=== PATIENT | male | born 1935 | race Caucasian/White ===

== ENCOUNTER 2019-03-30 23:09 | Emergency (ER) | payer MEDICARE, BC ==
[2019-03-30] MEDS ORDERED: Sodium Chloride 0.9% 10 ML Syringe FLUSH PRN (23:49)
[2019-03-30] MEDS ORDERED: Albuterol/Ipratropium 3.0-0.5 MG/3 ML Neb Soln NEB ONE (23:51)
[2019-03-30] MEDS ORDERED: methylPREDNISolone Sodium Succinate 125 MG/2 ML SDV IVPUSH ONE (23:51)
--- NOTE | 2019-03-30 23:54 | EDM.PDOC ---
ED HPI GENERAL MEDICAL PROBLEM - General Chief Complaint: Respiratory Problem Stated Complaint: SOB Time Seen by Provider: 03/30/19 23:46 Source of Information: Reports: Patient, Family, RN Notes Reviewed History Limitations: Reports: No Limitations - History of Present Illness INITIAL COMMENTS - FREE TEXT/NARRATIVE: 83-year-old gentleman presents emergency department today complaint of shortness of breath. He has a known history of COPD was evaluated by his primary care about a week ago did complete a course of amoxicillin. He states he just has not been able to turn the corner has gotten more short of breath over the week and has been wheezing heavily is using his regular medications at home. No chest pain no nausea vomiting or diaphoresis no sputum production - Related Data Allergies Allergy/AdvReac Type Severity Reaction Status Date / Time opium (anthroposophic) Allergy Unknown Hives Verified 03/30/19 23:28 [Opium (Anthroposophic)] tramadol Allergy Unknown Rash Verified 03/30/19 23:28 Home Meds: Home Meds Albuterol Sulfate [Albuterol Sulfate HFA] 2 puff INH Q6H PRN 06/04/13 [History] Esomeprazole [NexIUM] 40 mg PO BEDTIME PRN 06/04/13 [History] Furosemide 40 mg PO DAILY 06/04/13 [History] Glimepiride 2 mg PO DAILY 06/04/13 [History] Lisinopril 40 mg PO DAILY 06/04/13 [History] amLODIPine Besylate [Amlodipine Besylate] 5 mg PO DAILY 06/04/13 [History] carvediloL [Carvedilol] 25 mg PO BID 06/04/13 [History] metFORMIN [Glucophage] 1,000 mg PO BID 06/04/13 [History] Albuterol [Proventil Neb Soln] 2.5 mg .XX Q6H PRN 03/30/19 [History] Amoxicillin/Clavulanate K [Augmentin 500-125 MG] 1 tab PO Q8H 03/30/19 [History] Donepezil HCl 1 tab PO BEDTIME 03/30/19 [History] guaiFENesin [Mucinex] 600 mg PO BID 03/30/19 [History] predniSONE 40 mg PO DAILY #5 tab 03/31/19 [Rx] Past Medical History HEENT History: Reports: Hard of Hearing Cardiovascular History: Reports: Heart Failure, High Cholesterol, Hypertension Respiratory History: Reports: Asthma, COPD Gastrointestinal History: Reports: Bowel Obstruction, Diverticulosis, GERD Genitourinary History: Reports: BPH, Urinary Incontinence Musculoskeletal History: Reports: Arthritis Endocrine/Metabolic History: Reports: Diabetes, Type II, Obesity/BMI 30+ Hematologic History: Reports: Blood Transfusion(s) Oncologic (Cancer) History: Reports: Bladder - Past Surgical History HEENT Surgical History: Reports: Tonsillectomy GI Surgical History: Reports: Colon, Colonoscopy Male Surgical History: Reports: Cystectomy, Prostatectomy, Other (See Below) Other Male Surgeries/Procedures: partial Musculoskeletal Surgical History: Reports: Knee Replacement, Shoulder Surgery Social & Family History - Tobacco Use Smoking Status *Q: Never Smoker - Caffeine Use Caffeine Use: Reports: Coffee - Alcohol Use Days Per Week of Alcohol Use: 4 Number of Drinks Per Day: 1 Total Drinks Per Week: 4 - Recreational Drug Use Recreational Drug Use: No ED ROS GENERAL - Review of Systems Review Of Systems: See Below Constitutional: Denies: Fever, Chills HEENT: Reports: No Symptoms Respiratory: Reports: Shortness of Breath, Wheezing. Denies: Cough, Sputum Cardiovascular: Reports: Dyspnea on Exertion. Denies: Chest Pain GI/Abdominal: Reports: No Symptoms : Reports: No Symptoms Musculoskeletal: Reports: No Symptoms ED EXAM, GENERAL - Physical Exam Exam: See Below Exam Limited By: No Limitations General Appearance: Alert, WD/WN, No Apparent Distress Head: Atraumatic, Normocephalic Neck: Normal Inspection, Supple, Non-Tender, Full Range of Motion Respiratory/Chest: No Respiratory Distress, Decreased Breath Sounds, Wheezing Cardiovascular: Regular Rate, Rhythm, No Murmur GI/Abdominal: Soft, Non-Tender Course - Vital Signs Last Recorded V/S: Last Vital Signs Temp 97.9 F 03/30/19 23:37 Pulse 69 03/31/19 00:57 Resp 12 03/31/19 00:57 BP 149/88 H 03/31/19 00:57 Pulse Ox 95 03/31/19 00:57 - Orders/Labs/Meds Orders: Active Orders 24 hr Category Date Time Status EKG Documentation Completion [RC] ASDIRECTED Care 03/30/19 23:50 Active Peripheral IV Care [RC] . DIRECTED Care 03/30/19 23:50 Active RT Aerosol Therapy [RC] ASDIRECTED Care 03/30/19 23:51 Active Sodium Chloride 0.9% [Saline Flush] Med 03/30/19 23:49 Active 10 ml FLUSH ASDIRECTED PRN Peripheral IV Insertion Adult [OM.PC] Urgent Oth 03/30/19 23:49 Ordered EKG 12 Lead [EK] Urgent Ther 03/30/19 23:49 Ordered Medication Orders Sodium Chloride (Saline Flush) 10 ml FLUSH ASDIRECTED PRN PRN Reason: Keep Vein Open Last Admin: 03/31/19 00:10 Dose: 10 ml Labs: Laboratory Tests 03/30/19 03/30/19 03/30/19 Range/Units 00:10 00:10 00:10 WBC 7.3 (4.5-11.0) K/uL RBC 4.80 (4.30-5.90) M/uL Hgb 14.9 (12.0-15.0) g/dL Hct 44.3 (40.0-54.0) % MCV 92 (80-98) fL MCH 31 (27-31) pg MCHC 34 (32-36) % Plt Count 258 (150-400) K/uL Neut % (Auto) 53 (36-66) % Lymph % (Auto) 27 (24-44) % [place] % (Auto) 11 H (2-6) % Eos % (Auto) 9 H (2-4) % Baso % (Auto) 1 (0-1) % Sodium 139 L (140-148) mmol/L Potassium 4.0 (3.6-5.2) mmol/L Chloride 102 (100-108) mmol/L Carbon Dioxide 29 (21-32) mmol/L Anion Gap 12.0 (5.0-14.0) mmol/L BUN 20 H D (7-18) mg/dL Creatinine 1.1 (0.8-1.3) mg/dL Est Cr Clr Drug Dosing 43.35 mL/min Estimated GFR (MDRD) > 60 (>60) Glucose 120 H (74-106) mg/dL Calcium 9.7 (8.5-10.1) mg/dL Total Bilirubin 0.4 (0.2-1.0) mg/dL AST 17 (15-37) U/L ALT 30 (12-78) U/L Alkaline Phosphatase 50 (46-116) U/L Troponin I < 0.017 (0.000-0.056) ng/mL NT-Pro-B Natriuret Pep 98 (5-450) pg/mL Total Protein 7.3 (6.4-8.2) g/dL Albumin 3.7 (3.4-5.0) g/dL Globulin 3.6 H (2.3-3.5) g/dL Albumin/Globulin Ratio 1.0 L (1.2-2.2) Meds: Medications Generic Name Dose Route Start Last Admin Trade Name Freq PRN Reason Stop Dose Admin Sodium Chloride 10 ml 03/30/19 23:49 03/31/19 00:10 Saline Flush FLUSH 10 ml ASDIRECTED PRN Administration Keep Vein Open Discontinued Medications Generic Name Dose Route Start Last Admin Trade Name Freq PRN Reason Stop Dose Admin Albuterol/Ipratropium 3 ml 03/30/19 23:51 03/31/19 00:09 Duoneb 3.0-0.5 Mg/3 Ml NEB 03/30/19 23:52 3 ml ONETIME ONE Administration Methylprednisolone Sodium Succinate 125 mg 03/30/19 23:51 03/31/19 00:09 Solu-Medrol IVPUSH 03/30/19 23:52 125 mg ONETIME ONE Administration Departure - Departure Time of Disposition: 01:05 Disposition: Home, Self-Care 01 Condition: Fair Clinical Impression: COPD exacerbation - Discharge Information Prescriptions: predniSONE 40 mg PO DAILY #5 tab Instructions: Chronic Obstructive Pulmonary Disease Exacerbation, [id number] Referrals: Bo Sutherland MD [Primary Care Provider] - Forms: ED Department Discharge Additional Instructions: Take full course of prednisone start March 31, please follow-up with your primary care provider in the next 3 to 5 days for reevaluation for your breathing as well as evaluation of the chest x-ray. Call return to the emergency department worsening of symptoms Sepsis Event Note - Evaluation Sepsis Screening Result: No Definite Risk - Focused Exam Vital Signs: Vital Signs Temp Pulse Resp BP Pulse Ox 03/31/19 00:57 69 12 149/88 H 95 03/30/19 23:37 97.9 F 66 14 129/84 94 L Date Exam was Performed: 03/31/19 Time Exam was Performed: 01:03 - My Orders Last 24 Hours: My Active Orders 03/30/19 23:49 Sodium Chloride 0.9% [Saline Flush] 10 ml FLUSH ASDIRECTED PRN Peripheral IV Insertion Adult [OM.PC] Urgent EKG 12 Lead [EK] Urgent 03/30/19 23:50 EKG Documentation Completion [RC] ASDIRECTED Peripheral IV Care [RC] . DIRECTED 03/30/19 23:51 RT Aerosol Therapy [RC] ASDIRECTED - Assessment/Plan Last 24 Hours: My Active Orders 03/30/19 23:49 Sodium Chloride 0.9% [Saline Flush] 10 ml FLUSH ASDIRECTED PRN Peripheral IV Insertion Adult [OM.PC] Urgent EKG 12 Lead [EK] Urgent 03/30/19 23:50 EKG Documentation Completion [RC] ASDIRECTED Peripheral IV Care [RC] . DIRECTED 03/30/19 23:51 RT Aerosol Therapy [RC] ASDIRECTED Plan: Assessment Acuity = acute Site and laterality = COPD exacerbation Etiology = unknown Manifestations = wheezing Location of injury = Home Lab values = CBC, CMP, troponin and BNP within normal limits chest x-ray shows no acute process however there is a 2.2 cm silhouette near the cardiac border which needs to be followed up on a CT scan outpatient copy of this result was provided to the patient Plan I did discuss hospitalization with him he declined he got some improvement from the DuoNeb provided in the ED was given 125 mg Solu-Medrol IV. Plan for prednisone 40 mg once a day for the next 5 days having follow-up with primary care in the next 3 to 5 days for reevaluation of his breathing as well as to review the chest x-ray results This note was dictated using [employer] voice recognition software please call with any questions on syntax or grammar.
--- NOTE | 2019-03-31 00:44 | CRLCR ---
INDICATION: Shortness of breath TECHNIQUE: Chest radiograph 2 views COMPARISON: 07/15/2015 FINDINGS: Mediastinum: The mediastinum is normal in appearance. There is a small convex density along the left cardiac border measuring 2.2 cm. Lung: Both lungs are unremarkable in appearance. No sign of pleural effusion seen. No pneumothorax is identified. Bone and Soft tissue: Unremarkable for age. IMPRESSION: 1. There is a small convex density along the left cardiac border measuring 2.2 cm. This region was obscured on prior exam but may have been present. Evaluation with outpatient chest CT may be helpful for further characterization. Dictated by Alli Granger MD @ 03/31/2019 12:43:51 AM Dictated by: Alli Granger MD @ 03/31/2019 00:44:03 (Electronically Signed)
[2019-03-31 00:57] VITALS: BP 149/88; PULSE 69
== END 2019-03-31 01:15 | disposition home or self-care (01) ==
LOC: JP.ED 23:09
DX: J44.1 Chronic obstructive pulmonary disease with (acute) exacerbation (principal); I11.0 Hypertensive heart disease with heart failure; I50.9 Heart failure, unspecified; E11.9 Type 2 diabetes mellitus without complications; E78.00 Pure hypercholesterolemia, unspecified; K21.9 Gastro-esophageal reflux disease without esophagitis; M19.90 Unspecified osteoarthritis, unspecified site; E66.9 Obesity, unspecified; Z68.31 Body mass index [BMI] 31.0-31.9, adult; Z88.5 Allergy status to narcotic agent; Z88.8 Allergy status to other drugs, medicaments and biological substances; Z79.899 Other long term (current) drug therapy; Z79.84 Long term (current) use of oral hypoglycemic drugs
CPT/HCPCS: 36415; 71046; 80053; 83880; 84484; 85025; 93005; 93010; 94640; 96374; 99283; 99285; J2930; J7620-GY

== ENCOUNTER 2019-11-24 17:54 | Observation (INO) | payer MEDICARE, BC, OTHER ==
--- NOTE | 2019-11-24 19:22 | EDM.PDOC ---
ED HPI GENERAL MEDICAL PROBLEM - General Chief Complaint: General Stated Complaint: SHORTNESS OF BREATH, LOSS OF BLADDER CONTROL Time Seen by Provider: 11/24/19 19:02 - History of Present Illness INITIAL COMMENTS - FREE TEXT/NARRATIVE: Laureano is a 84-year-old male presenting to the ED for evaluation of increasing shortness of breath and cough. His reports that she found him laying on the floor next to the bed at 6 AM this morning. She thought he was " and started to shake him" but he was alive but unable to get up despite her help. She reports that he had loss of bladder control. She states that she is a light sleeper and did not hear him fall, but is not sure how he ended up on the floor. In addition she is not sure that he had his head. Patient denies any headache, vision changes, nausea or vomiting. She does state that he has been more dyspneic today and has had a cough. The patient denies any has had fever or chills, however, the states that she had to give him an uruguayan at home to warm him up. In addition, she notes that his legs appear a bit more swollen than usual. Onset: Today Duration: Constant Improves with: Reports: None Associated Symptoms: Reports: Cough, Fever/Chills, Other (Swelling of the legs) - Related Data Allergies Allergy/AdvReac Type Severity Reaction Status Date / Time opium (anthroposophic) Allergy Unknown Hives Verified 03/30/19 23:28 [Opium (Anthroposophic)] tramadol Allergy Unknown Rash Verified 03/30/19 23:28 Home Meds: Home Meds Albuterol Sulfate [Albuterol Sulfate HFA] 2 puff INH Q6H PRN 06/04/13 [History] Furosemide 40 mg PO DAILY 06/04/13 [History] Glimepiride 2 mg PO DAILY 06/04/13 [History] Lisinopril 40 mg PO DAILY 06/04/13 [History] amLODIPine Besylate [Amlodipine Besylate] 5 mg PO DAILY 06/04/13 [History] carvediloL [Carvedilol] 25 mg PO BID 06/04/13 [History] metFORMIN [Glucophage] 1,000 mg PO BID 06/04/13 [History] Donepezil HCl 1 tab PO BEDTIME 03/30/19 [History] Albuterol [Proventil Neb Soln] 2.5 mg .XX Q6H 11/24/19 [History] Aspirin [Halfprin] 81 mg PO DAILY 11/24/19 [History] Simvastatin [Zocor] 20 mg PO BEDTIME 11/24/19 [History] Past Medical History HEENT History: Reports: Hard of Hearing, Impaired Vision Cardiovascular History: Reports: Heart Failure, High Cholesterol, Hypertension Respiratory History: Reports: Asthma, COPD Gastrointestinal History: Reports: Bowel Obstruction, Diverticulosis, GERD Genitourinary History: Reports: BPH, Urinary Incontinence Musculoskeletal History: Reports: Arthritis Endocrine/Metabolic History: Reports: Diabetes, Type II, Obesity/BMI 30+ Hematologic History: Reports: Blood Transfusion(s) Oncologic (Cancer) History: Reports: Bladder, Other (See Below) Other Oncologic History: skin cancer - Past Surgical History HEENT Surgical History: Reports: Tonsillectomy GI Surgical History: Reports: Colon, Colonoscopy Male Surgical History: Reports: Cystectomy, Prostatectomy, Other (See Below) Other Male Surgeries/Procedures: partial Musculoskeletal Surgical History: Reports: Knee Replacement, Shoulder Surgery Social & Family History - Tobacco Use Smoking Status *Q: Former Smoker Used Tobacco, but Quit: Yes Month/Year Tobacco Last Used: 40 years - Caffeine Use Caffeine Use: Reports: Coffee - Alcohol Use Days Per Week of Alcohol Use: 5 Number of Drinks Per Day: 2 Total Drinks Per Week: 10 - Recreational Drug Use Recreational Drug Use: No ED ROS GENERAL - Review of Systems Review Of Systems: See Below Constitutional: Reports: Chills, Weakness HEENT: Reports: No Symptoms Respiratory: Reports: Shortness of Breath, Cough Cardiovascular: Reports: Edema Endocrine: Reports: No Symptoms GI/Abdominal: Reports: No Symptoms : Reports: Incontinence Musculoskeletal: Reports: No Symptoms Skin: Reports: No Symptoms Neurological: Reports: No Symptoms Psychiatric: Reports: No Symptoms Hematologic/Lymphatic: Reports: No Symptoms Immunologic: Reports: No Symptoms ED EXAM, GENERAL - Physical Exam Exam: See Below Exam Limited By: No Limitations General Appearance: Alert, WD/WN, No Apparent Distress Eye Exam: Bilateral Eye: EOMI, PERRL Nose: Normal Inspection, Normal Mucosa Throat/Mouth: Normal Inspection, Normal Lips, Normal Teeth, Normal Gums, Normal Oropharynx, Normal Voice, No Airway Compromise Head: Atraumatic, Normocephalic Neck: Normal Inspection, Supple, Non-Tender, Full Range of Motion Respiratory/Chest: No Respiratory Distress, No Accessory Muscle Use, Rhonchi (Rhonchi noted in the left base) Cardiovascular: Normal Peripheral Pulses GI/Abdominal: Normal Bowel Sounds, Soft, Non-Tender, No Organomegaly, No Distention, No Abnormal Bruit Back Exam: Normal Inspection, Full Range of Motion Extremities: Normal Range of Motion, Non-Tender, Pedal Edema (1+ bilateral pedal edema to mid calf) Neurological: Alert, Oriented, Normal Gait, No Motor/Sensory Deficits Psychiatric: Normal Affect, Normal Mood Skin Exam: Warm, Dry Lymphatic: No Adenopathy EKG INTERPRETATION EKG Date: 11/24/19 Time: 19:23 Rhythm: NSR Rate (Beats/Min): 57 Faber: Normal P-Wave: Present QRS: Normal ST-T: Other (Nonspecific ST-T changes) QT: Normal EKG Interpretation Comments: Normal sinus rhythm with a rate of 57 bpm. Short AK interval. Multiple premature supraventricular complexes nonspecific ST-T changes. Course - Vital Signs Last Recorded V/S: Last Vital Signs Temp 36.9 C 11/24/19 18:53 Pulse 68 11/24/19 22:02 Resp 18 11/24/19 18:53 BP 130/80 11/24/19 22:02 Pulse Ox 92 L 11/24/19 22:02 - Orders/Labs/Meds Orders: Active Orders 24 hr Category Date Time Status EKG Documentation Completion [RC] ASDIRECTED Care 11/24/19 19:16 Active Chest 2V [CR] Stat Exams 11/24/19 19:15 Taken Head wo Cont [CT] Stat Exams 11/24/19 22:08 Taken EKG 12 Lead [EK] Routine Ther 11/24/19 19:15 Ordered Labs: Laboratory Tests 11/24/19 11/24/19 11/24/19 Range/Units 19:26 19:26 19:58 WBC 5.5 (4.5-11.0) K/uL RBC 4.56 (4.30-5.90) M/uL Hgb 13.3 (12.0-15.0) g/dL Hct 41.7 (40.0-54.0) % MCV 91 (80-98) fL MCH 29 (27-31) pg MCHC 32 (32-36) % Plt Count 173 (150-400) K/uL Neut % (Auto) 63 (36-66) % Lymph % (Auto) 18 L (24-44) % [place] % (Auto) 17 H (2-6) % Eos % (Auto) 2 (2-4) % Baso % (Auto) 0 (0-1) % Sodium 140 (140-148) mmol/L Potassium 4.0 (3.6-5.2) mmol/L Chloride 101 (100-108) mmol/L Carbon Dioxide 30 (21-32) mmol/L Anion Gap 8.6 (5.0-14.0) mmol/L BUN 10 (7-18) mg/dL Creatinine 1.0 (0.8-1.3) mg/dL Est Cr Clr Drug Dosing 50.51 mL/min Estimated GFR (MDRD) > 60 (>60) Glucose 130 H (74-106) mg/dL Calcium 8.9 (8.5-10.1) mg/dL Total Bilirubin 0.3 (0.2-1.0) mg/dL AST 30 D (15-37) U/L ALT 30 (12-78) U/L Alkaline Phosphatase 41 L (46-116) U/L Troponin I < 0.017 (0.000-0.056) ng/mL Total Protein 7.2 (6.4-8.2) g/dL Albumin 3.8 (3.4-5.0) g/dL Globulin 3.4 (2.3-3.5) g/dL Albumin/Globulin Ratio 1.1 L (1.2-2.2) Urine Color Yellow (YELLOW) Urine Appearance Clear (CLEAR) Urine pH 8.0 (5.0-8.0) Ur Specific [place] 1.020 (1.008-1.030) Urine Protein 30 H (NEGATIVE) mg/dL Urine Glucose (UA) 100 H (NEGATIVE) mg/dL Urine Ketones Negative (NEGATIVE) mg/dL Urine Occult Blood Trace-intact H (NEGATIVE) Urine Nitrite Negative (NEGATIVE) Urine Bilirubin Negative (NEGATIVE) Urine Urobilinogen 2.0 H (0.2-1.0) EU/dL Ur Leukocyte Esterase Negative (NEGATIVE) Urine RBC 5-10 H (0-5) Urine WBC 0-5 (0-5) Ur Epithelial Cells Moderate Amorphous Sediment Few Urine Bacteria Moderate Urine Mucus Not seen - Radiology Interpretation Free Text/Narrative:: I reviewed the chest x-ray and compared it to his previous there are no significant changes noted. There is an ill-defined curvilinear density seen at the apex of the heart on the PA view that has been previously described. There is no evidence for an acute infiltrate. I reviewed the CT of the head without contrast demonstrating slight enlargement of the ventricles likely due to age-related volume loss. There is no evidence for acute infarct or hemorrhage. There is no mass-effect. - Re-Assessments/Exams Free Text/Narrative Re-Assessment/Exam: 11/24/19 23:00 nursing informs me that the patient takes the assist of 2 to ambulate which is not normal for him as he normally gets around at home by himself. I have not found any significant source for infection to account for his cough although this could be an early bronchitis or pneumonia. His blood work does not show anything significant for acute leukocytosis. Because the patient fell this morning we did do a CT of his brain without contrast that failed to demonstrate any acute findings but does show generalized enlargement of the ventricles age-related. Again I have nothing to point to why he is also had repeated urinary incontinence today as his urinalysis is unremarkable. My plan is to admit him on observation for generalized weakness where he can be evaluated again in the morning and assessed for mobility safety. This was discussed with WILEY Rodriguez who agrees with the hospitalization under observation. This was also discussed with the patient and his were both in agreement with this plan. Departure - Departure Time of Disposition: 22:55 Disposition: Refer to Observation Condition: Good Clinical Impression: Generalized weakness - Discharge Information *PRESCRIPTION DRUG MONITORING PROGRAM REVIEWED*: Not Applicable *COPY OF PRESCRIPTION DRUG MONITORING REPORT IN PATIENT DEREK: Not Applicable Referrals: Bo Sutherland MD [Primary Care Provider] - Forms: ED Department Discharge Sepsis Event Note (ED) - Evaluation Sepsis Screening Result: No Definite Risk - Focused Exam Vital Signs: Vital Signs Temp Pulse Resp BP Pulse Ox 11/24/19 22:02 68 130/80 92 L 11/24/19 21:31 69 157/93 H 92 L 11/24/19 21:02 58 L 153/90 H 95 11/24/19 19:01 73 152/84 H 95 11/24/19 18:53 36.9 C 78 18 172/101 H 94 L 11/24/19 18:26 36.9 C 78 18 172/101 H 94 L - Problem List & Annotations (1) Urinary incontinence SNOMED Code(s): 833884146 Code(s): R32 - UNSPECIFIED URINARY INCONTINENCE Status: Acute Priority: High Current Visit: Yes Qualifiers: Urinary Incontinence type: unspecified incontinence Qualified Code(s): R32 - Unspecified urinary incontinence (2) Hypertension SNOMED Code(s): 38013040 Code(s): I10 - ESSENTIAL (PRIMARY) HYPERTENSION Status: Acute Priority: High Current Visit: Yes Qualifiers: Hypertension type: unspecified Qualified Code(s): I10 - Essential (primary) hypertension (3) Acute dyspnea SNOMED Code(s): 789564250, 758201520 Code(s): R06.00 - DYSPNEA, UNSPECIFIED Status: Acute Priority: High Current Visit: Yes Onset Date: ~11/23/19 (4) Cough in adult SNOMED Code(s): 59217327 Code(s): R05 - COUGH Status: Acute Priority: Medium Current Visit: Yes Onset Date: ~11/23/19 - My Orders Last 24 Hours: My Active Orders 11/24/19 19:15 Chest 2V [CR] Stat EKG 12 Lead [EK] Routine 11/24/19 19:16 EKG Documentation Completion [RC] ASDIRECTED 11/24/19 22:08 Head wo Cont [CT] Stat - Assessment/Plan Last 24 Hours: My Active Orders 11/24/19 19:15 Chest 2V [CR] Stat EKG 12 Lead [EK] Routine 11/24/19 19:16 EKG Documentation Completion [RC] ASDIRECTED 11/24/19 22:08 Head wo Cont [CT] Stat Plan: Admit
--- NOTE | 2019-11-24 22:53 | CRLCT ---
INDICATION: Head injury from Fall earlier today now having urinary incontinence TECHNIQUE: CT Head without i.v. contrast. COMPARISON: 08/31/2014 FINDINGS: CSF space: Unremarkable for age. Brain: No evidence of mass, acute infarction or hemorrhage is seen. No mass-effect or midline shift is seen. Mild diffuse cortical atrophy is noted. Mild patchy regions of low attenuation are present in the periventricular white matter, likely due to chronic microvascular ischemic changes. The brain parenchyma is otherwise normal in appearance with preservation of the estrada-white matter junction. Calvarium: The visualized paranasal sinuses are well aerated. The mastoid air cells are clear. The visualized orbits are grossly unremarkable. The calvarium is unremarkable in appearance with no fractures identified. IMPRESSION: 1. No evidence of acute infarction, intracranial hemorrhage, or mass-effect seen. Please note that all CT scans at this facility use dose modulation, iterative reconstruction, and/or weight-based dosing when appropriate to reduce radiation dose to as low as reasonably achievable. Dictated by: Alli Granger MD @ 11/24/2019 22:52:44 (Electronically Signed)
[2019-11-24] MEDS ORDERED: Bisacodyl 5 MG Tab PO PRN (23:03)
[2019-11-24] MEDS ORDERED: Docusate Sodium 100 MG Cap PO PRN (23:03)
[2019-11-24] MEDS ORDERED: Acetaminophen 325 MG Tab PO PRN (23:03)
[2019-11-24] MEDS ORDERED: Morphine 2 MG/ML SYRINGE IVPUSH PRN (23:03)
[2019-11-24] MEDS ORDERED: Albuterol/Ipratropium 3.0-0.5 MG/3 ML Neb Soln NEB PRN (23:03)
[2019-11-24] MEDS ORDERED: Albuterol 0.083% 2.5 MG/3 ML Neb Soln NEB PRN (23:03)
[2019-11-24] MEDS ORDERED: oxyCODONE 5 MG Tab PO PRN (23:03)
[2019-11-24] MEDS ORDERED: Ondansetron 4 MG/2 ML SDV IV PRN (23:03)
[2019-11-24] MEDS ORDERED: Ondansetron 4 MG Tab.DIS PO PRN (23:03)
[2019-11-24] MEDS ORDERED: Carvedilol 25 MG Tab PO SCH (23:30)
--- NOTE | 2019-11-24 23:31 | PCM.HP.2 ---
H&P History of Present Illness - General Date of Service: 11/24/19 Admit Problem/Dx: Admission Diagnosis/Problem Admission Diagnosis/Problem Weakness Source of Information: Patient, Family, Provider History Limitations: Reports: No Limitations - History of Present Illness Initial Comments - Free Text/Narative: - History of Present Illness INITIAL COMMENTS - FREE TEXT/NARRATIVE: weakness, fall at home Laureano is a 84-year-old male presenting to the ED for evaluation of increasing shortness of breath and cough. His reports that she found him laying on the floor next to the bed at 6 AM this morning. She thought he was " and started to shake him" but he was alive but unable to get up despite her help. She reports that he had loss of bladder control. She states that she is a light sleeper and did not hear him fall, but is not sure how he ended up on the floor. In addition she is not sure that he had his head. Patient denies any headache, vision changes, nausea or vomiting. She does state that he has been more dyspneic today and has had a cough. The patient denies any has had fever or chills, however, the states that she had to give him an kosovan at home to warm him up. In addition, she notes that his legs appear a bit more swollen than usual. Onset of Symptoms: Reports: Today Duration of Symptoms: Reports: Hour(s): Location: Reports: Generalized Improves with: Reports: None Worsens with: Reports: None Context: Reports: Other (fall at home) Associated Symptoms: Reports: Weakness - Related Data Allergies/Adverse Reactions: Allergies Allergy/AdvReac Type Severity Reaction Status Date / Time opium (anthroposophic) Allergy Unknown Hives Verified 03/30/19 23:28 [Opium (Anthroposophic)] tramadol Allergy Unknown Rash Verified 03/30/19 23:28 Home Medications: Home Meds Albuterol Sulfate [Albuterol Sulfate HFA] 2 puff INH Q6H PRN 06/04/13 [History] Furosemide 40 mg PO DAILY 06/04/13 [History] Glimepiride 2 mg PO DAILY 06/04/13 [History] Lisinopril 40 mg PO DAILY 06/04/13 [History] amLODIPine Besylate [Amlodipine Besylate] 5 mg PO DAILY 06/04/13 [History] carvediloL [Carvedilol] 25 mg PO BID 06/04/13 [History] metFORMIN [Glucophage] 1,000 mg PO BID 06/04/13 [History] Donepezil HCl 1 tab PO BEDTIME 03/30/19 [History] Albuterol [Proventil Neb Soln] 2.5 mg .XX Q6H 11/24/19 [History] Aspirin [Halfprin] 81 mg PO DAILY 11/24/19 [History] Simvastatin [Zocor] 20 mg PO BEDTIME 11/24/19 [History] Past Medical History HEENT History: Reports: Hard of Hearing, Impaired Vision Cardiovascular History: Reports: Heart Failure, High Cholesterol, Hypertension Respiratory History: Reports: Asthma, COPD Gastrointestinal History: Reports: Bowel Obstruction, Diverticulosis, GERD Genitourinary History: Reports: BPH, Urinary Incontinence Musculoskeletal History: Reports: Arthritis Endocrine/Metabolic History: Reports: Diabetes, Type II, Obesity/BMI 30+ Hematologic History: Reports: Blood Transfusion(s) Oncologic (Cancer) History: Reports: Bladder, Other (See Below) Other Oncologic History: skin cancer - Past Surgical History HEENT Surgical History: Reports: Tonsillectomy GI Surgical History: Reports: Colon, Colonoscopy Male Surgical History: Reports: Cystectomy, Prostatectomy, Other (See Below) Other Male Surgeries/Procedures: partial Musculoskeletal Surgical History: Reports: Knee Replacement, Shoulder Surgery Social & Family History - Tobacco Use Smoking Status *Q: Former Smoker Used Tobacco, but Quit: Yes Month/Year Tobacco Last Used: 40 years - Caffeine Use Caffeine Use: Reports: Coffee - Alcohol Use Days Per Week of Alcohol Use: 5 Number of Drinks Per Day: 2 Total Drinks Per Week: 10 - Recreational Drug Use Recreational Drug Use: No - Living Situation & Occupation Living situation: Reports: Occupation: Retired (lives with in [place], [place].) H&P Review of Systems - Review of Systems: Review Of Systems: See Below General: Reports: Weakness, Fatigue HEENT: Reports: Glasses, Other (hearing aides and natural teeth) Pulmonary: Reports: Cough Cardiovascular: Reports: No Symptoms Gastrointestinal: Reports: No Symptoms Genitourinary: Reports: Incontinence Musculoskeletal: Reports: No Symptoms Skin: Reports: Bruising (left lower leg anterior) Psychiatric: Reports: No Symptoms Neurological: Reports: No Symptoms Hematologic/Lymphatic: Reports: No Symptoms Immunologic: Reports: No Symptoms Exam - Exam Exam: See Below - Vital Signs Vital Signs: Last Vital Signs Temp 36.9 C 11/24/19 18:53 Pulse 68 11/24/19 22:02 Resp 18 11/24/19 18:53 BP 130/80 11/24/19 22:02 Pulse Ox 92 L 11/24/19 22:02 Weight: 82.9 kg - Exam Quality Assessment: DVT Prophylaxis General: Alert, Oriented, Cooperative HEENT: PERRLA, Hearing Intact (hearing aides in place), Mucosa Moist & [place], Nares Patent, Glasses, Other (natural teeth present) Neck: Supple, Trachea Midline Lungs: Clear to Auscultation, Normal Respiratory Effort, Other (cough present) Cardiovascular: Regular Rate, Regular Rhythm, Normal S1, Normal S2 GI/Abdominal Exam: Normal Bowel Sounds, Soft, Non-Tender, No Organomegaly, No Distention (Male) Exam: Deferred Rectal (Males) Exam: Deferred Back Exam: Normal Inspection, Full Range of Motion Extremities: Normal Inspection, Normal Range of Motion, Non-Tender, Normal Capillary Refill, Pedal Edema (trace) Peripheral Pulses: 2+: Radial (L), Radial (R), Dorsalis Pedis (L), Dorsalis Pedis (R) Skin: Warm, Dry, Intact Neurological: Reflexes Equal Bilateral, Strength Equal Bilateral (ambulates out of bed to bathroom with assist of two Nursing staff) Neuro Extensive - Mental Status: Alert, Oriented x3, Normal Mood/Affect Psychiatric: Alert, Normal Affect, Normal Mood - Patient Data Lab Results Last 24 hrs: Laboratory Results - last 24 hr 11/24/19 11/24/19 11/24/19 Range/Units 19:26 19:26 19:58 WBC 5.5 (4.5-11.0) K/uL RBC 4.56 (4.30-5.90) M/uL Hgb 13.3 (12.0-15.0) g/dL Hct 41.7 (40.0-54.0) % MCV 91 (80-98) fL MCH 29 (27-31) pg MCHC 32 (32-36) % Plt Count 173 (150-400) K/uL Neut % (Auto) 63 (36-66) % Lymph % (Auto) 18 L (24-44) % [place] % (Auto) 17 H (2-6) % Eos % (Auto) 2 (2-4) % Baso % (Auto) 0 (0-1) % Sodium 140 (140-148) mmol/L Potassium 4.0 (3.6-5.2) mmol/L Chloride 101 (100-108) mmol/L Carbon Dioxide 30 (21-32) mmol/L Anion Gap 8.6 (5.0-14.0) mmol/L BUN 10 (7-18) mg/dL Creatinine 1.0 (0.8-1.3) mg/dL Est Cr Clr Drug Dosing 50.51 mL/min Estimated GFR (MDRD) > 60 (>60) Glucose 130 H (74-106) mg/dL Calcium 8.9 (8.5-10.1) mg/dL Total Bilirubin 0.3 (0.2-1.0) mg/dL AST 30 D (15-37) U/L ALT 30 (12-78) U/L Alkaline Phosphatase 41 L (46-116) U/L Troponin I < 0.017 (0.000-0.056) ng/mL Total Protein 7.2 (6.4-8.2) g/dL Albumin 3.8 (3.4-5.0) g/dL Globulin 3.4 (2.3-3.5) g/dL Albumin/Globulin Ratio 1.1 L (1.2-2.2) Urine Color Yellow (YELLOW) Urine Appearance Clear (CLEAR) Urine pH 8.0 (5.0-8.0) Ur Specific [place] 1.020 (1.008-1.030) Urine Protein 30 H (NEGATIVE) mg/dL Urine Glucose (UA) 100 H (NEGATIVE) mg/dL Urine Ketones Negative (NEGATIVE) mg/dL Urine Occult Blood Trace-intact H (NEGATIVE) Urine Nitrite Negative (NEGATIVE) Urine Bilirubin Negative (NEGATIVE) Urine Urobilinogen 2.0 H (0.2-1.0) EU/dL Ur Leukocyte Esterase Negative (NEGATIVE) Urine RBC 5-10 H (0-5) Urine WBC 0-5 (0-5) Ur Epithelial Cells Moderate Amorphous Sediment Few Urine Bacteria Moderate Urine Mucus Not seen Result Diagrams: 11/24/19 19:26 11/24/19 19:26 Sepsis Event Note - Evaluation Sepsis Screening Result: No Definite Risk - Focused Exam Vital Signs: Vital Signs Temp Pulse Resp BP Pulse Ox 11/24/19 22:02 68 130/80 92 L 11/24/19 21:31 69 157/93 H 92 L 11/24/19 21:02 58 L 153/90 H 95 11/24/19 19:01 73 152/84 H 95 11/24/19 18:53 36.9 C 78 18 172/101 H 94 L 11/24/19 18:26 36.9 C 78 18 172/101 H 94 L - Problem List (1) Generalized weakness SNOMED Code(s): 86824632 ICD Code: R53.1 - WEAKNESS Status: Acute Priority: High Current Visit: Yes (2) Cough in adult SNOMED Code(s): 96247301 ICD Code: R05 - COUGH Status: Acute Priority: High Current Visit: Yes Onset Date: ~11/23/19 (3) Hypertension SNOMED Code(s): 12874278 ICD Code: I10 - ESSENTIAL (PRIMARY) HYPERTENSION Status: Acute Priority: High Current Visit: Yes Qualifiers: Hypertension type: unspecified Qualified Code(s): I10 - Essential (primary) hypertension (4) Urinary incontinence SNOMED Code(s): 856363117 ICD Code: R32 - UNSPECIFIED URINARY INCONTINENCE Status: Acute Priority: High Current Visit: Yes Qualifiers: Urinary Incontinence type: unspecified incontinence Qualified Code(s): R32 - Unspecified urinary incontinence (5) Diabetes mellitus type 2 SNOMED Code(s): 48175391 ICD Code: E11.9 - TYPE 2 DIABETES MELLITUS WITHOUT COMPLICATIONS Status: Chronic Priority: High Current Visit: Yes Problem List Initiated/Reviewed/Updated: Yes Orders Last 24hrs: Active Orders 24 hr Category Date Time Status Patient Status Manage Transfer [TRANSFER] Routine ADT 11/24/19 23:01 Active Cardiac Monitoring [RC] CONTINUOUS Care 11/24/19 23:12 Active EKG Documentation Completion [RC] ASDIRECTED Care 11/24/19 19:16 Active Intake and Output [RC] QSHIFT Care 11/24/19 23:12 Active Notify Provider Vital Signs [RC] ASDIRECTED Care 11/24/19 23:13 Active Oxygen Therapy [RC] PRN Care 11/24/19 23:03 Active Pulse Oximetry [RC] CONTINUOUS Care 11/24/19 23:12 Active RT Aerosol Therapy [RC] ASDIRECTED Care 11/24/19 23:19 Active Up With Assistance [RC] ASDIRECTED Care 11/24/19 23:03 Active VTE/DVT Education [RC] Per Unit Routine Care 11/24/19 23:03 Active Vital Signs [RC] Q4H Care 11/24/19 23:03 Active Consult to Spiritual Care [CONS] Routine Cons 11/24/19 23:03 Active OT Evaluation and Treatment [CONS] Routine Cons 11/24/19 23:03 Active PT Evaluation and Treatment [CONS] Routine Cons 11/24/19 23:03 Active Regular Diet [DIET] Diet 11/24/19 Dinner Active Chest 2V [CR] Stat Exams 11/24/19 19:15 Taken BASIC METABOLIC PANEL,BMP [CHEM] AM Lab 11/25/19 05:11 Ordered CBC WITH AUTO DIFF [HEME] AM Lab 11/25/19 05:11 Ordered GLUCOSE POC LAB TO COLLECT JPM [POC] QIDACANDBED Lab 11/25/19 07:30 Ordered Acetaminophen [TylenoL] Med 11/24/19 23:03 Ordered 650 mg PO Q4H PRN Albuterol [Proventil Neb Soln] Med 11/24/19 23:03 Ordered 2.5 mg NEB Q4H PRN Albuterol/Ipratropium [DuoNeb 3.0-0.5 MG/3 ML] Med 11/24/19 23:03 Ordered 3 ml NEB QID PRN Aspirin [Halfprin] Med 11/25/19 09:00 Ordered 81 mg PO DAILY Docusate Sodium [Colace] Med 11/24/19 23:03 Ordered 100 mg PO BID PRN Donepezil [Aricept] Med 11/24/19 21:00 Ordered 10 mg PO BEDTIME Furosemide [Lasix] Med 11/25/19 09:00 Ordered 40 mg PO DAILY Glimepiride [Amaryl] Med 11/25/19 09:00 Ordered 2 mg PO DAILY Lisinopril [Lisinopril] Med 11/25/19 09:00 Ordered 40 mg PO DAILY Morphine Med 11/24/19 23:03 Ordered 2 mg IVPUSH Q2H PRN Ondansetron [Zofran ODT] Med 11/24/19 23:03 Ordered 4 mg PO Q6H PRN Ondansetron [Zofran] Med 11/24/19 23:03 Ordered 4 mg IV Q4H PRN Pantoprazole [ProTONIX IV] Med 11/25/19 09:00 Ordered 40 mg IV DAILY Simvastatin [Zocor] Med 11/25/19 21:00 Ordered 20 mg PO BEDTIME Sodium Chloride 0.9% [Normal Saline] 1,000 ml Med 11/24/19 23:15 Ordered IV ASDIRECTED amLODIPine [Norvasc] Med 11/25/19 09:00 Ordered 5 mg PO DAILY bisacodyL [Dulcolax] Med 11/24/19 23:03 Ordered 5 mg PO DAILY PRN carvediloL [Coreg] Med 11/24/19 23:30 Ordered 25 mg PO BID oxyCODONE Med 11/24/19 23:03 Ordered 5 mg PO Q4H PRN Sequential Compression Device [OM.PC] Per Unit Routine Oth 11/24/19 23:16 Ordered Resuscitation Status Routine Resus Stat 11/24/19 23:03 Ordered EKG 12 Lead [EK] Routine Ther 11/24/19 19:15 Ordered Medication Orders Acetaminophen (Tylenol) 650 mg PO Q4H PRN PRN Reason: Pain (Mild 1-3)/fever Albuterol (Proventil Neb Soln) 2.5 mg NEB Q4H PRN PRN Reason: Shortness Of Breath/wheezing Albuterol/Ipratropium (Duoneb 3.0-0.5 Mg/3 Ml) 3 ml NEB QID PRN PRN Reason: Shortness Of Breath/wheezing Amlodipine Besylate (Norvasc) 5 mg PO DAILY YANDEL Aspirin (Halfprin) 81 mg PO DAILY YANDEL Bisacodyl (Dulcolax) 5 mg PO DAILY PRN PRN Reason: Constipation Carvedilol (Coreg) 25 mg PO BID YANDEL Docusate Sodium (Colace) 100 mg PO BID PRN PRN Reason: Constipation Donepezil HCl (Aricept) 10 mg PO BEDTIME YANDEL Furosemide (Lasix) 40 mg PO DAILY YANDEL Glimepiride (Amaryl) 2 mg PO DAILY YANDEL Sodium Chloride (Normal Saline) 1,000 mls @ 125 mls/hr IV ASDIRECTED YANDEL Morphine Sulfate (Morphine) 2 mg IVPUSH Q2H PRN PRN Reason: Pain (severe 7-10) Non-Formulary Medication (Lisinopril [Lisinopril]) 40 mg PO DAILY [facility] Ondansetron HCl (Zofran Odt) 4 mg PO Q6H PRN PRN Reason: Nausea able to take PO Ondansetron HCl (Zofran) 4 mg IV Q4H PRN PRN Reason: Nausea/Vomiting Oxycodone HCl (Oxycodone) 5 mg PO Q4H PRN PRN Reason: Pain (moderate 4-6) Pantoprazole Sodium (Protonix Iv) 40 mg IV DAILY YANDEL Simvastatin (Zocor) 20 mg PO BEDTIME YANDEL Assessment/Plan Comment:: ASSESSMENT / PLAN: WEAKNESS, urinary incontinence -Admit Observation [address] [place] [address] for further monitoring -IV Fluids for rehydration NS at 75 mL per hour -telemetry -AM labs CBC, BMP Cough in Adult with history of COPD -Nebulized Albuterol and Duo-Nebs as needed -supplemental oxygen as needed to keep oxygen sat >92% -Continuous pulse oximetery -Advise to notify nurses of any chest pain or other symptoms -And a.m. labs: CBC, BMP Hypertension -continue outpatient medications. Diabetes type 2 -blood glucose before meals and at bedtime -outpatient medication orders. Maintenance issues -Orders home meds: ordered -Nutrition: consistent carb diet -Warner catheter: not indicated at this time -DVT: SCD -PPI; IV Protonix 40mg daily -consult Spiritual -PO and OT for evaluation of strengt CODE STATUS: FULL Admission status: Admit to Observation -I expect this patient to stay less than 24 hours, not to exceed 96 hours for evaluation and management of this problem admission status: Admit to [address] [place] [address] Disposition: home with Primary care provider: Dr. Sutherland Hospitalist: Dr. Baez - Mortality Measure Prognosis:: Good
[2019-11-25] MEDS: Sodium Chloride 0.9% 1,000 ML IV SCH ×2 (00:10→07:26)
[2019-11-25] MEDS: DONEPEZIL 10 MG PO SCH ×2 (00:56→21:13)
[2019-11-25] MEDS ORDERED: Pantoprazole 40 MG Vial IV SCH (07:30)
[2019-11-25] MEDS: CARVEDILOL 25 MG PO SCH ×2 (08:05→16:49)
[2019-11-25] MEDS: Furosemide 40 MG Tab**POM PO SCH (08:05)
[2019-11-25] MEDS: Aspirin 81 MG Tab.EC PO SCH (08:05)
[2019-11-25] MEDS: GLIMEPIRIDE 2 MG PO SCH (08:05)
[2019-11-25] MEDS: amLODIPine 5 MG Tab**POM PO SCH (08:06)
[2019-11-25] MEDS: Pantoprazole 40 MG Vial IV SCH (08:06)
[2019-11-25] MEDS ORDERED: Potassium Chloride 20 MEQ Tab.ER PO ONE ×2 (08:30→17:00)
[2019-11-25] MEDS ORDERED: Lisinopril 20 MG Tab PO SCH (09:00)
--- NOTE | 2019-11-25 10:42 | CR ---
CHEST: 2 view CLINICAL HISTORY:Cough, SOB COMPARISON:CT April 2019 FINDINGS: Heart size and pulmonary vascularity are normal. There are atherosclerotic changes in the aorta. There is some patchy density near the cardiac apex. No effusions are seen Impression: Patchy lingular density may represent patchy atelectasis or small pneumonic infiltrate.
[2019-11-25] MEDS ORDERED: Glucose Gel 15 GM in 37.5 GM Tube PO PRN (12:11)
[2019-11-25] MEDS ORDERED: 50% Dextrose in Water 50 ML Syringe IV PRN (12:11)
--- NOTE | 2019-11-25 14:14 | PCM.PN ---
- General Info Date of Service: 11/25/19 Subjective Update: Mr. Burgos is an 84-year-old gentleman who was admitted through the emergency department last night following a fall at home with weakness and lethargy. No significant abnormalities were identified on evaluation in the emergency department, no evidence of underlying infection or significant metabolic abnormality. His reports that he has had a cough over the last 36 hours, she has not been aware of any fever. White blood cell count was found to be wit hin normal range. He is unable to provide a meaningful history concerning recent symptoms or review of systems because of underlying dementia. - Patient Data Vitals - Most Recent: Last Vital Signs Temp 97.7 F 11/25/19 10:40 Pulse 75 11/25/19 10:40 Resp 24 H 11/25/19 10:40 BP 114/62 11/25/19 10:40 Pulse Ox 95 11/25/19 10:40 Weight - Most Recent: 185 lb I&O - Last 24 Hours: Intake & Output 11/24/19 11/25/19 11/25/19 22:59 06:59 14:59 Intake Total 763 200 Output Total 300 585 Balance 463 -385 Lab Results Last 24 Hours: Laboratory Results - last 24 hr 11/24/19 11/24/19 11/24/19 Range/Units 19:26 19:26 19:58 WBC 5.5 (4.5-11.0) K/uL RBC 4.56 (4.30-5.90) M/uL Hgb 13.3 (12.0-15.0) g/dL Hct 41.7 (40.0-54.0) % MCV 91 (80-98) fL MCH 29 (27-31) pg MCHC 32 (32-36) % Plt Count 173 (150-400) K/uL Neut % (Auto) 63 (36-66) % Lymph % (Auto) 18 L (24-44) % [place] % (Auto) 17 H (2-6) % Eos % (Auto) 2 (2-4) % Baso % (Auto) 0 (0-1) % Sodium 140 (140-148) mmol/L Potassium 4.0 (3.6-5.2) mmol/L Chloride 101 (100-108) mmol/L Carbon Dioxide 30 (21-32) mmol/L Anion Gap 8.6 (5.0-14.0) mmol/L BUN 10 (7-18) mg/dL Creatinine 1.0 (0.8-1.3) mg/dL Est Cr Clr Drug Dosing 50.51 mL/min Estimated GFR (MDRD) > 60 (>60) Glucose 130 H (74-106) mg/dL POC Glucose (74-106) MG/DL Calcium 8.9 (8.5-10.1) mg/dL Total Bilirubin 0.3 (0.2-1.0) mg/dL AST 30 D (15-37) U/L ALT 30 (12-78) U/L Alkaline Phosphatase 41 L (46-116) U/L Troponin I < 0.017 (0.000-0.056) ng/mL Total Protein 7.2 (6.4-8.2) g/dL Albumin 3.8 (3.4-5.0) g/dL Globulin 3.4 (2.3-3.5) g/dL Albumin/Globulin Ratio 1.1 L (1.2-2.2) Urine Color Yellow (YELLOW) Urine Appearance Clear (CLEAR) Urine pH 8.0 (5.0-8.0) Ur Specific [place] 1.020 (1.008-1.030) Urine Protein 30 H (NEGATIVE) mg/dL Urine Glucose (UA) 100 H (NEGATIVE) mg/dL Urine Ketones Negative (NEGATIVE) mg/dL Urine Occult Blood Trace-intact H (NEGATIVE) Urine Nitrite Negative (NEGATIVE) Urine Bilirubin Negative (NEGATIVE) Urine Urobilinogen 2.0 H (0.2-1.0) EU/dL Ur Leukocyte Esterase Negative (NEGATIVE) Urine RBC 5-10 H (0-5) Urine WBC 0-5 (0-5) Ur Epithelial Cells Moderate Amorphous Sediment Few Urine Bacteria Moderate Urine Mucus Not seen 11/25/19 11/25/19 11/25/19 Range/Units 04:12 04:12 07:30 WBC 5.2 (4.5-11.0) K/uL RBC 4.46 (4.30-5.90) M/uL Hgb 13.5 (12.0-15.0) g/dL Hct 40.9 (40.0-54.0) % MCV 92 (80-98) fL MCH 30 (27-31) pg MCHC 33 (32-36) % Plt Count 202 (150-400) K/uL Neut % (Auto) 61 (36-66) % Lymph % (Auto) 20 L (24-44) % [place] % (Auto) 17 H (2-6) % Eos % (Auto) 2 (2-4) % Baso % (Auto) 0 (0-1) % Sodium 134 L (140-148) mmol/L Potassium 3.4 L (3.6-5.2) mmol/L Chloride 100 (100-108) mmol/L Carbon Dioxide 24 (21-32) mmol/L Anion Gap 13.4 (5.0-14.0) mmol/L BUN 9 (7-18) mg/dL Creatinine 0.8 (0.8-1.3) mg/dL Est Cr Clr Drug Dosing 63.14 mL/min Estimated GFR (MDRD) > 60 (>60) Glucose 185 H (74-106) mg/dL POC Glucose 161 H (74-106) MG/DL Calcium 8.5 (8.5-10.1) mg/dL Total Bilirubin (0.2-1.0) mg/dL AST (15-37) U/L ALT (12-78) U/L Alkaline Phosphatase (46-116) U/L Troponin I (0.000-0.056) ng/mL Total Protein (6.4-8.2) g/dL Albumin (3.4-5.0) g/dL Globulin (2.3-3.5) g/dL Albumin/Globulin Ratio (1.2-2.2) Urine Color (YELLOW) Urine Appearance (CLEAR) Urine pH (5.0-8.0) Ur Specific [place] (1.008-1.030) Urine Protein (NEGATIVE) mg/dL Urine Glucose (UA) (NEGATIVE) mg/dL Urine Ketones (NEGATIVE) mg/dL Urine Occult Blood (NEGATIVE) Urine Nitrite (NEGATIVE) Urine Bilirubin (NEGATIVE) Urine Urobilinogen (0.2-1.0) EU/dL Ur Leukocyte Esterase (NEGATIVE) Urine RBC (0-5) Urine WBC (0-5) Ur Epithelial Cells Amorphous Sediment Urine Bacteria Urine Mucus Med Orders - Current: Current Medications Acetaminophen (Tylenol) 650 mg PO Q4H PRN PRN Reason: Pain (Mild 1-3)/fever Albuterol (Proventil Neb Soln) 2.5 mg NEB Q4H PRN PRN Reason: Shortness Of Breath/wheezing Albuterol/Ipratropium (Duoneb 3.0-0.5 Mg/3 Ml) 3 ml NEB QID PRN PRN Reason: Shortness Of Breath/wheezing Amlodipine Besylate (Norvasc) 5 mg PO DAILY [facility] Last Admin: 11/25/19 08:06 Dose: 5 mg Documented by: Aspirin (Halfprin) 81 mg PO DAILY [facility] Last Admin: 11/25/19 08:05 Dose: 81 mg Documented by: Bisacodyl (Dulcolax) 5 mg PO DAILY PRN PRN Reason: Constipation Carvedilol (Coreg) 25 mg PO BIDMEALS [facility] Last Admin: 11/25/19 08:05 Dose: 25 mg Documented by: Dextrose (Glutose 15) 15 gm PO ONETIME PRN PRN Reason: Hypoglycemia Dextrose/Water (Dextrose 50% In Water) 50 ml IV ONETIME PRN PRN Reason: Hypoglycemia Docusate Sodium (Colace) 100 mg PO BID PRN PRN Reason: Constipation Donepezil HCl (Aricept) 10 mg PO BEDTIME [facility] Last Admin: 11/25/19 00:56 Dose: 10 mg Documented by: Furosemide (Lasix) 40 mg PO DAILY [facility] Last Admin: 11/25/19 08:05 Dose: 40 mg Documented by: Glimepiride (Amaryl) 2 mg PO DAILY [facility] Last Admin: 11/25/19 08:05 Dose: 2 mg Documented by: Insulin Human Lispro (Humalog) 0 unit SUBCUT QIDACANDBED [facility]; Protocol Metformin HCl (Glucophage) 1,000 mg PO BID [facility] Morphine Sulfate (Morphine) 2 mg IVPUSH Q2H PRN PRN Reason: Pain (severe 7-10) Lisinopril 40 Mg Tab (Pom) 0 each PO DAILY [facility] Ondansetron HCl (Zofran Odt) 4 mg PO Q6H PRN PRN Reason: Nausea able to take PO Ondansetron HCl (Zofran) 4 mg IV Q4H PRN PRN Reason: Nausea/Vomiting Oxycodone HCl (Oxycodone) 5 mg PO Q4H PRN PRN Reason: Pain (moderate 4-6) Pantoprazole Sodium (Protonix Iv) 40 mg IV ACBREAKFAST [facility] Last Admin: 11/25/19 08:06 Dose: 40 mg Documented by: Potassium Chloride (Klor-Con M20) 40 meq PO ONETIME ONE Stop: 11/25/19 17:01 Simvastatin (Zocor) 20 mg PO BEDTIME [facility] Discontinued Medications Carvedilol (Coreg) 25 mg PO BID [facility] Last Admin: 11/25/19 00:56 Dose: 25 mg Documented by: Sodium Chloride (Normal Saline) 1,000 mls @ 125 mls/hr IV ASDIRECTED [facility] Last Admin: 11/25/19 07:26 Dose: 125 mls/hr Documented by: Lisinopril (Prinivil) 40 mg PO DAILY [facility] Last Admin: 11/25/19 08:06 Dose: 40 mg Documented by: Pantoprazole Sodium (Protonix Iv) 40 mg IV ACBREAKFAST [facility] Potassium Chloride (Klor-Con M20) 40 meq PO ONETIME ONE Stop: 11/25/19 08:31 Last Admin: 11/25/19 09:47 Dose: 40 meq Documented by: - Exam Quality Assessment: DVT Prophylaxis General: Alert, Cooperative, No Acute Distress. No: Oriented Lungs: Clear to Auscultation, Normal Respiratory Effort Cardiovascular: Regular Rate, Regular Rhythm, No Murmurs GI/Abdominal Exam: Soft, Non-Tender, No Organomegaly, No Distention Extremities: Non-Tender, No Pedal Edema Sepsis Event Note - Evaluation Sepsis Screening Result: No Definite Risk - Focused Exam Vital Signs: Vital Signs Temp Pulse Pulse Resp BP BP Pulse Ox 11/25/19 10:40 97.7 F 75 24 H 114/62 95 11/25/19 08:06 129/74 11/25/19 08:05 94 129/74 11/25/19 07:36 95 11/25/19 07:12 99.9 F 94 12 129/75 95 11/25/19 04:00 98.8 F 78 18 149/82 H 94 L - Problem List Review Problem List Initiated/Reviewed/Updated: Yes - My Orders Last 24 Hours: My Active Orders 11/25/19 12:11 Communication Order [RC] STAT Diabetes Education [RC] Click to Edit Notify Provider [RC] PRN Dextrose 50% in Water 50 ml IV ONETIME PRN Dextrose [Glutose 15] 15 gm PO ONETIME PRN 11/25/19 12:14 Discontinue Telemetry Monitoring [Cardiac Monitoring Discontinue] [RC] Click to Edit Convert IV to Saline Lock [OM.PC] Routine 11/25/19 13:59 INFLUENZA A+B AG SCREEN [RM] Stat 11/25/19 14:00 CORONAVIRUS COVID-19 ALFRED [MOLEC] Stat 11/25/19 16:30 GLUCOSE POC LAB TO COLLECT JPM [POC] QIDACANDBED 11/25/19 17:00 Insulin Lispro [HumaLOG] See Protocol SUBCUT QIDACANDBED Potassium Chloride [Klor-Con M20] 40 meq PO ONETIME ONE 11/25/19 21:00 GLUCOSE POC LAB TO COLLECT JPM [POC] QIDACANDBED metFORMIN [Glucophage] 1,000 mg PO BID 11/26/19 05:11 POTASSIUM,K [CHEM] AM 11/26/19 07:30 GLUCOSE POC LAB TO COLLECT JPM [POC] QIDACANDBED 11/26/19 11:30 GLUCOSE POC LAB TO COLLECT JPM [POC] QIDACANDBED 11/26/19 16:30 GLUCOSE POC LAB TO COLLECT JPM [POC] QIDACANDBED 11/26/19 21:00 GLUCOSE POC LAB TO COLLECT JPM [POC] QIDACANDBED 11/27/19 07:30 GLUCOSE POC LAB TO COLLECT JPM [POC] QIDACANDBED 11/27/19 11:30 GLUCOSE POC LAB TO COLLECT JPM [POC] QIDACANDBED 11/27/19 16:30 GLUCOSE POC LAB TO COLLECT JPM [POC] QIDACANDBED 11/27/19 21:00 GLUCOSE POC LAB TO COLLECT JPM [POC] QIDACANDBED 11/28/19 07:30 GLUCOSE POC LAB TO COLLECT JPM [POC] QIDACANDBED 11/28/19 11:30 GLUCOSE POC LAB TO COLLECT JPM [POC] QIDACANDBED 11/28/19 16:30 GLUCOSE POC LAB TO COLLECT JPM [POC] QIDACANDBED 11/28/19 21:00 GLUCOSE POC LAB TO COLLECT JPM [POC] QIDACANDBED 11/29/19 07:30 GLUCOSE POC LAB TO COLLECT JPM [POC] QIDACANDBED 20 11:30 GLUCOSE POC LAB TO COLLECT JPM [POC] QIDADBED 11/29/19 16:30 GLUCOSE POC LAB TO COLLECT JPM [POC] QIDADB11/29/19 21:00 GLUCOSE POC LAB TO COLLECT JPM [POC] QIDADB11/30/19 07:30 GLUCOSE POC LAB TO COLLECT JPM [POC] QIDADB11/30/19 11:30 GLUCOSE POC LAB TO COLLECT JPM [POC] QIDB - Plan Plan:: ASSESSMENT / PLAN WEAKNESS-improved since admission, more alert and interactive. -Saline lock IV Cough in Adult with history of COPD -Nebulized Albuterol and Duo-Nebs as needed -supplemental oxygen as needed to keep oxygen sat >92% -Obtain COVID and influenza tests Hypertension -continue outpatient medications. Diabetes type 2 -blood glucose before meals and at bedtime -outpatient medication orders. -Low-dose sliding scale Humalog Maintenance issues -Nutrition: consistent carb diet -Warner catheter: not indicated at this time -DVT: SCD -PPI; IV Protonix 40mg daily -consult Spiritual -PO and OT for evaluation of strength CODE STATUS: FULL Admission status: Admit to Observation -I expect this patient to stay less than 24 hours, not to exceed 96 hours for evaluation and management of this problem admission status: Admit to [address] [place] [address] Disposition: home with Primary care provider: Dr. Sutherland Hospitalist: Dr. Baez
[2019-11-25] MEDS: Insulin Lispro 100 Unit/ML 3 ML KwikPen SUBCUT SCH ×2 (16:52→21:11)
[2019-11-25] MEDS ORDERED: Enoxaparin 40 MG/0.4 ML Syringe SUBCUT SCH (18:00)
[2019-11-25] MEDS ORDERED: SIMVASTATIN 20 MG PO SCH (21:00)
[2019-11-25] MEDS: METFORMIN 500 MG PO SCH (21:12)
[2019-11-26] MEDS: Insulin Lispro 100 Unit/ML 3 ML KwikPen SUBCUT SCH ×2 (07:44→11:41)
[2019-11-26] MEDS: Pantoprazole 40 MG Vial IV SCH (07:59)
[2019-11-26] MEDS: METFORMIN 500 MG PO SCH (08:00)
[2019-11-26] MEDS: GLIMEPIRIDE 2 MG PO SCH (08:01)
[2019-11-26] MEDS: Furosemide 40 MG Tab**POM PO SCH (08:01)
[2019-11-26] MEDS: Aspirin 81 MG Tab.EC PO SCH (08:02)
[2019-11-26] MEDS: CARVEDILOL 25 MG PO SCH (08:02)
[2019-11-26] MEDS: amLODIPine 5 MG Tab**POM PO SCH (08:02)
[2019-11-26] MEDS ORDERED: LISINOPRIL 40 MG PO SCH (09:00)
[2019-11-26 11:04] VITALS: BP 118/79; PULSE 75
--- NOTE | 2019-11-26 13:19 | PCM.DCSUM1 ---
Discharge Summary - Hospital Course Brief History: Mr. Burgos is an 84-year-old gentleman who was admitted to observation status through the emergency department with a fall at home, weakness, and anorexia, secondary to COVID-19. - Discharge Data Discharge Date: 11/26/19 Discharge Disposition: Home, Self-Care 01 Condition: Fair - Referral to Home Health Primary Care Physician: Bo Sutherland MD - Discharge Diagnosis/Problem(s) (1) COVID-19 SNOMED Code(s): 188482543 ICD Code: U07.1 - COVID-19 Status: Acute Current Visit: Yes (2) Cough in adult SNOMED Code(s): 27644426 ICD Code: R05 - COUGH Status: Acute Priority: High Current Visit: Yes Onset Date: ~11/23/19 (3) Generalized weakness SNOMED Code(s): 09309806 ICD Code: R53.1 - WEAKNESS Status: Acute Priority: High Current Visit: Yes (4) COLD, Chronic obstructive lung disease SNOMED Code(s): 15937613 ICD Code: J44.9 - CHRONIC OBSTRUCTIVE PULMONARY DISEASE, UNSPECIFIED Status: Chronic Current Visit: No (5) Diabetes mellitus type 2 SNOMED Code(s): 33879787 ICD Code: E11.9 - TYPE 2 DIABETES MELLITUS WITHOUT COMPLICATIONS Status: Chronic Priority: High Current Visit: Yes - Patient Summary/Data Consults: Consultations 11/24/19 23:03 Consult to Spiritual Care [CONS] Routine OT Evaluation and Treatment [CONS] Routine Please Evaluate and Treat. OT Reason for Consult: Strengthening This query below is only for informational purposes and is not editable. Admission Diagnosis/Problem: Weakness PT Evaluation and Treatment [CONS] Routine Please Evaluate and Treat. PT Reason for Consult: Ambulation Special Instructions: fall at home with weakness This query below is only for informational purposes and is not editable. Admission Diagnosis/Problem: Weakness Hospital Course: Laureano is a 84-year-old male presenting to the ED for evaluation of increasing shortness of breath and cough. His reports that she found him laying on the floor next to the bed at 6 AM this morning. She thought he was " and started to shake him" but he was alive but unable to get up despite her help. She reports that he had loss of bladder control. She states that she is a light sleeper and did not hear him fall, but is not sure how he ended up on the floor. In addition she is not sure that he had his head. Patient denies any headache, vision changes, nausea or vomiting. She does state that he has been more dyspneic today and has had a cough. The patient denies any has had fever or chills, however, the states that she had to give him an [place] at home to warm him up. In addition, she notes that his legs appear a bit more swollen than usual. On admission he was given IV fluids for hydration, at that time there was no obvious evidence of infection. Chest x-ray showed no obvious infiltrates and his white blood cell count was within normal range. COVID-19 test was obtained after admission and did return positive. He had no significant fevers noted during hospitalization. There was also no evidence of respiratory compromise despite his underlying COPD. Respiratory rate remained within desired range and he had no significant hypoxia on room air. Overall strength improved during hospital stay and by the time of discharge he was ambulating short distances with use of his cane. He has been instructed to bring him immediately back to the emergency department if he develops symptoms of increased shortness of breath or significant fevers. - Patient Instructions Diet: Usual Diet as Tolerated Activity: As Tolerated Other/Special Instructions: Schedule follow-up appointment with primary care provider in 2 weeks - Discharge Plan *PRESCRIPTION DRUG MONITORING PROGRAM REVIEWED*: Not Applicable *COPY OF PRESCRIPTION DRUG MONITORING REPORT IN PATIENT DEREK: Not Applicable Home Medications: Home Meds Albuterol Sulfate [Albuterol Sulfate HFA] 2 puff INH Q6H PRN 06/04/13 [History] Furosemide 40 mg PO DAILY 06/04/13 [History] Glimepiride 2 mg PO DAILY 06/04/13 [History] Lisinopril 40 mg PO DAILY 06/04/13 [History] amLODIPine Besylate [Amlodipine Besylate] 5 mg PO DAILY 06/04/13 [History] carvediloL [Carvedilol] 25 mg PO BID 06/04/13 [History] metFORMIN [Glucophage] 1,000 mg PO BID 06/04/13 [History] Donepezil HCl 1 tab PO BEDTIME 03/30/19 [History] Albuterol [Proventil Neb Soln] 2.5 mg .XX Q6H 11/24/19 [History] Aspirin [Halfprin] 81 mg PO DAILY 11/24/19 [History] Simvastatin [Zocor] 20 mg PO BEDTIME 11/24/19 [History] Referrals: oB Sutherland MD [Primary Care Provider] - - Discharge Summary/Plan Comment DC Time >30 min.: No - Patient Data Vitals - Most Recent: Last Vital Signs Temp 98.6 F 11/26/19 11:00 Pulse 75 11/26/19 11:00 Resp 20 11/26/19 11:00 BP 118/79 11/26/19 11:00 Pulse Ox 94 L 11/26/19 11:00 Weight - Most Recent: 185 lb 0.014 oz I&O - Last 24 hours: Intake & Output 11/25/19 11/26/19 11/26/19 22:59 06:59 14:59 Intake Total 300 600 200 Output Total 125 Balance 300 475 200 Lab Results - Last 24 hrs: Laboratory Results - last 24 hr 11/25/19 11/25/19 11/25/19 Range/Units 14:00 16:30 21:00 Potassium (3.6-5.2) mmol/L POC Glucose 231 H 184 H (74-106) MG/DL SARS-CoV-2 RNA (ALFRED) Positive H (NEGATIVE) 11/26/19 11/26/19 11/26/19 Range/Units 06:04 07:47 11:46 Potassium 3.8 (3.6-5.2) mmol/L POC Glucose 142 H 172 H (74-106) MG/DL SARS-CoV-2 RNA (ALFRED) (NEGATIVE) [place]OVER Results - Last 24 hrs: Microbiology 11/25/19 13:59 Influenza Type A Antigen Screen - Final Nasopharyngeal Swab NEGATIVE INFLUENZA A VIRUS AG REFERENCE RANGE: NEGATIVE Influenza Type B Antigen Screen - Final NEGATIVE INFLUENZA B VIRUS AG REFERENCE RANGE: NEGATIVE Med Orders - Current: Current Medications Acetaminophen (Tylenol) 650 mg PO Q4H PRN PRN Reason: Pain (Mild 1-3)/fever Albuterol (Proventil Neb Soln) 2.5 mg NEB Q4H PRN PRN Reason: Shortness Of Breath/wheezing Albuterol/Ipratropium (Duoneb 3.0-0.5 Mg/3 Ml) 3 ml NEB QID PRN PRN Reason: Shortness Of Breath/wheezing Amlodipine Besylate (Norvasc) 5 mg PO DAILY [facility] Last Admin: 11/26/19 08:02 Dose: 5 mg Documented by: Aspirin (Halfprin) 81 mg PO DAILY [facility] Last Admin: 11/26/19 08:02 Dose: 81 mg Documented by: Bisacodyl (Dulcolax) 5 mg PO DAILY PRN PRN Reason: Constipation Carvedilol (Coreg) 25 mg PO BIDMEALS [facility] Last Admin: 11/26/19 08:02 Dose: 25 mg Documented by: Dextrose (Glutose 15) 15 gm PO ONETIME PRN PRN Reason: Hypoglycemia Dextrose/Water (Dextrose 50% In Water) 50 ml IV ONETIME PRN PRN Reason: Hypoglycemia Docusate Sodium (Colace) 100 mg PO BID PRN PRN Reason: Constipation Donepezil HCl (Aricept) 10 mg PO BEDTIME [facility] Last Admin: 11/25/19 21:13 Dose: 10 mg Documented by: Enoxaparin Sodium (Lovenox) 40 mg SUBCUT Q24H [facility] Last Admin: 11/25/19 17:05 Dose: 40 mg Documented by: Furosemide (Lasix) 40 mg PO DAILY [facility] Last Admin: 11/26/19 08:01 Dose: 40 mg Documented by: Glimepiride (Amaryl) 2 mg PO DAILY [facility] Last Admin: 11/26/19 08:01 Dose: 2 mg Documented by: Insulin Human Lispro (Humalog) 0 unit SUBCUT QIDACANDBED [facility]; Protocol Last Admin: 11/26/19 11:41 Dose: 1 units Documented by: Metformin HCl (Glucophage) 1,000 mg PO BID [facility] Last Admin: 11/26/19 08:00 Dose: 1,000 mg Documented by: Morphine Sulfate (Morphine) 2 mg IVPUSH Q2H PRN PRN Reason: Pain (severe 7-10) Lisinopril 40 Mg Tab (Pom) 0 each PO DAILY [facility] Last Admin: 11/26/19 08:01 Dose: 1 each Documented by: Ondansetron HCl (Zofran Odt) 4 mg PO Q6H PRN PRN Reason: Nausea able to take PO Ondansetron HCl (Zofran) 4 mg IV Q4H PRN PRN Reason: Nausea/Vomiting Oxycodone HCl (Oxycodone) 5 mg PO Q4H PRN PRN Reason: Pain (moderate 4-6) Pantoprazole Sodium (Protonix) 40 mg PO ACBREAKFAST [facility] Simvastatin (Zocor) 20 mg PO BEDTIME [facility] Last Admin: 11/25/19 21:14 Dose: 20 mg Documented by: Discontinued Medications Carvedilol (Coreg) 25 mg PO BID [facility] Last Admin: 11/25/19 00:56 Dose: 25 mg Documented by: Sodium Chloride (Normal Saline) 1,000 mls @ 125 mls/hr IV ASDIRECTED [facility] Last Admin: 11/25/19 07:26 Dose: 125 mls/hr Documented by: Lisinopril (Prinivil) 40 mg PO DAILY [facility] Last Admin: 11/25/19 08:06 Dose: 40 mg Documented by: Pantoprazole Sodium (Protonix Iv) 40 mg IV ACBREAKFAST [facility] Pantoprazole Sodium (Protonix Iv) 40 mg IV ACBREAKFAST [facility] Last Admin: 11/26/19 07:59 Dose: 40 mg Documented by: Potassium Chloride (Klor-Con M20) 40 meq PO ONETIME ONE Stop: 11/25/19 08:31 Last Admin: 11/25/19 09:47 Dose: 40 meq Documented by: Potassium Chloride (Klor-Con M20) 40 meq PO ONETIME ONE Stop: 11/25/19 17:01 Last Admin: 11/25/19 16:45 Dose: 40 meq Documented by: - Exam Quality Assessment: Reports: DVT Prophylaxis General: Reports: Alert, Cooperative, No Acute Distress. Denies: Oriented Lungs: Reports: Normal Respiratory Effort, Decreased Breath Sounds. Denies: Rales, Rhonchi, Rub, Wheezing Cardiovascular: Reports: Regular Rate, Regular Rhythm, No Murmurs GI/Abdominal Exam: Soft, Non-Tender, No Organomegaly, No Distention Extremities: Non-Tender, No Pedal Edema
[2019-11-27] MEDS ORDERED: Pantoprazole 40 MG Tab.CR PO SCH (07:30)
== END 2019-11-26 15:47 | disposition home or self-care (01) ==
LOC: JP.ED 17:54 → JP.MS 23:01
PROVIDERS: ADMIT Hospitalist; ATTEND Hospitalist
DX: U07.1 COVID-19 (principal); E78.00 Pure hypercholesterolemia, unspecified; I11.0 Hypertensive heart disease with heart failure; I50.9 Heart failure, unspecified; R32 Unspecified urinary incontinence; J44.9 Chronic obstructive pulmonary disease, unspecified; E11.9 Type 2 diabetes mellitus without complications; E66.9 Obesity, unspecified; Z79.82 Long term (current) use of aspirin; Z79.899 Other long term (current) drug therapy; Z79.84 Long term (current) use of oral hypoglycemic drugs; Z87.891 Personal history of nicotine dependence; Z88.6 Allergy status to analgesic agent; Z88.8 Allergy status to other drugs, medicaments and biological substances; Z68.29 Body mass index [BMI] 29.0-29.9, adult
CPT/HCPCS: 36415; 70450; 71046; 80048; 80053; 81001; 82962; 84132; 84484; 85025; 87804; 93005; 93010; 96361; 96372; 96374; 96376; 97116; 97161; 97165; 99217; 99220; 99225; 99284; 99285; A9270; C9113; G0378; J1650; J1815; J7030; U0002

== ENCOUNTER 2019-12-02 16:31 | Emergency (ER) | payer MEDICARE, BC ==
[2019-12-02] MEDS ORDERED: Lactated Ringers 1,000 ML IV ONE (17:37)
--- NOTE | 2019-12-02 19:33 | CRLCR ---
INDICATION: Cough, SOBPositive COVID TECHNIQUE: Chest 1 view. COMPARISON: 11/23/18 FINDINGS: Cardiovascular and mediastinum: Heart size and vasculature are normal in caliber and appearance. Mediastinum is within normal limits. Lungs and pleural space: Lungs are clear. No sign of infiltrate or mass. No sign of pleural effusion. No pneumothorax. Bones and soft tissues: No significant findings. IMPRESSION: Unremarkable chest. Dictated by: Angel Lopez MD @ 12/02/2019 19:32:33 (Electronically Signed)
--- NOTE | 2019-12-02 20:04 | EDM.PDOC ---
ED HPI GENERAL MEDICAL PROBLEM - General Chief Complaint: General Stated Complaint: COVID Time Seen by Provider: 12/02/19 16:50 Source of Information: Reports: Patient, Family History Limitations: Reports: No Limitations - History of Present Illness INITIAL COMMENTS - FREE TEXT/NARRATIVE: pt arrived with a history of a very poor oral intake. He did not eat or drink anything today. He has been having diarrhwea. He had a positive covid on Nov 22. He did ok for the first few days. but the last few days have not been as good. He has not had a good intake and he has been weaker. 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 Onset: Gradual Duration: Day(s): Location: Reports: Chest, Generalized, Other ( weak and a poor oral intake. ) Associated Symptoms: Reports: No Other Symptoms - Related Data Allergies Allergy/AdvReac Type Severity Reaction Status Date / Time opium (anthroposophic) Allergy Unknown Hives Verified 03/30/19 23:28 [Opium (Anthroposophic)] tramadol Allergy Unknown Rash Verified 03/30/19 23:28 Home Meds: Home Meds Albuterol Sulfate [Albuterol Sulfate HFA] 2 puff INH Q6H PRN 06/04/13 [History] Furosemide 40 mg PO DAILY 06/04/13 [History] Glimepiride 2 mg PO DAILY 06/04/13 [History] Lisinopril 40 mg PO DAILY 06/04/13 [History] amLODIPine Besylate [Amlodipine Besylate] 5 mg PO DAILY 06/04/13 [History] carvediloL [Carvedilol] 25 mg PO BID 06/04/13 [History] metFORMIN [Glucophage] 1,000 mg PO BID 06/04/13 [History] Donepezil HCl 1 tab PO BEDTIME 03/30/19 [History] Albuterol [Proventil Neb Soln] 2.5 mg .XX Q6H 11/24/19 [History] Aspirin [Halfprin] 81 mg PO DAILY 11/24/19 [History] Simvastatin [Zocor] 20 mg PO BEDTIME 11/24/19 [History] Past Medical History HEENT History: Reports: Hard of Hearing, Impaired Vision Cardiovascular History: Reports: Heart Failure, High Cholesterol, Hypertension Respiratory History: Reports: Asthma, COPD, Other (See Below) Other Respiratory History: postive COVID-19 TEST 11/23 Gastrointestinal History: Reports: Bowel Obstruction, Diverticulosis, GERD Genitourinary History: Reports: BPH, Urinary Incontinence Musculoskeletal History: Reports: Arthritis Endocrine/Metabolic History: Reports: Diabetes, Type II, Obesity/BMI 30+ Hematologic History: Reports: Blood Transfusion(s) Oncologic (Cancer) History: Reports: Bladder, Other (See Below) Other Oncologic History: skin cancer - Infectious Disease History Infectious Disease History: Reports: Other (See Below) Other Infectious Disease History: COVID-19 - Past Surgical History HEENT Surgical History: Reports: Tonsillectomy GI Surgical History: Reports: Colon, Colonoscopy Male Surgical History: Reports: Cystectomy, Prostatectomy, Other (See Below) Other Male Surgeries/Procedures: partial Musculoskeletal Surgical History: Reports: Knee Replacement, Shoulder Surgery Social & Family History - Family History Family Medical History: Noncontributory - Tobacco Use Smoking Status *Q: Former Smoker Years of Tobacco use: 20 Packs/Tins Daily: 1 Used Tobacco, but Quit: Yes Month/Year Tobacco Last Used: 40 YEARS - Caffeine Use Caffeine Use: Reports: Coffee - Recreational Drug Use Recreational Drug Use: No - Living Situation & Occupation Living situation: Reports: Occupation: Retired (lives with in [place], [place].) ED ROS GENERAL - Review of Systems Review Of Systems: See Below Constitutional: Reports: No Symptoms HEENT: Reports: No Symptoms Respiratory: Reports: No Symptoms Cardiovascular: Reports: No Symptoms Endocrine: Reports: No Symptoms GI/Abdominal: Reports: Diarrhea, Decreased Appetite, Other (poor intake. ) : Reports: No Symptoms Musculoskeletal: Reports: No Symptoms Skin: Reports: No Symptoms Neurological: Reports: Confusion, Other (pt does have a history of dementia. ) Psychiatric: Reports: Depression, Other (pt did not know why he is here. ) ED EXAM, GENERAL - Physical Exam Exam: See Below Free Text/Narrative:: pt is more lethargic. He has not had any oral intake today and very little yesterday. He is more sob today. He is coughing up some green sputum. He has not had a fever. Pt had a positive covid test on the . Exam Limited By: No Limitations General Appearance: Alert, Anxious, Mild Distress Ears: Normal TMs Nose: Normal Inspection Throat/Mouth: Normal Inspection Head: Atraumatic Neck: Normal Inspection Respiratory/Chest: No Respiratory Distress, Other (pt has 02 sats of 94. He has a history of copd. ) Cardiovascular: Regular Rate, Rhythm GI/Abdominal: Soft, Non-Tender (Male) Exam: Deferred Rectal (Males) Exam: Deferred Back Exam: Normal Inspection Extremities: Normal Inspection Neurological: Alert, Normal Cognition, Other (pt does not seem to understand why he is here. 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 ) Psychiatric: Anxious Course - Vital Signs Last Recorded V/S: Last Vital Signs Temp 37.1 C 12/02/19 20:30 Pulse 62 12/02/19 20:30 Resp 20 12/02/19 20:30 BP 139/87 12/02/19 20:00 Pulse Ox 91 L 12/02/19 20:30 - Orders/Labs/Meds Labs: Laboratory Tests 12/02/19 12/02/19 12/02/19 Range/Units 17:37 17:37 17:38 WBC 4.1 L (4.5-11.0) K/uL RBC 4.84 (4.30-5.90) M/uL Hgb 14.0 (12.0-15.0) g/dL Hct 43.8 (40.0-54.0) % MCV 91 (80-98) fL MCH 29 (27-31) pg MCHC 32 (32-36) % Plt Count 223 (150-400) K/uL D-Dimer, Quantitative 314 (0.0-400.0) ng/mL Sodium 140 (140-148) mmol/L Potassium 3.9 (3.6-5.2) mmol/L Chloride 103 (100-108) mmol/L Carbon Dioxide 27 (21-32) mmol/L Anion Gap 10.1 (5.0-14.0) mmol/L BUN 19 H D (7-18) mg/dL Creatinine 1.1 (0.8-1.3) mg/dL Est Cr Clr Drug Dosing 45.92 mL/min Estimated GFR (MDRD) > 60 (>60) Glucose 120 H (74-106) mg/dL Calcium 8.9 (8.5-10.1) mg/dL Total Bilirubin 0.4 (0.2-1.0) mg/dL AST 32 (15-37) U/L ALT 36 (12-78) U/L Alkaline Phosphatase 44 L (46-116) U/L Lactate Dehydrogenase (85-227) U/L C-Reactive Protein (0.0-0.3) mg/dL NT-Pro-B Natriuret Pep (5-450) pg/mL Total Protein 7.8 (6.4-8.2) g/dL Albumin 3.6 (3.4-5.0) g/dL Globulin 4.2 H (2.3-3.5) g/dL Albumin/Globulin Ratio 0.9 L (1.2-2.2) 12/02/19 12/02/19 12/02/19 Range/Units 17:38 17:50 17:50 WBC (4.5-11.0) K/uL RBC (4.30-5.90) M/uL Hgb (12.0-15.0) g/dL Hct (40.0-54.0) % MCV (80-98) fL MCH (27-31) pg MCHC (32-36) % Plt Count (150-400) K/uL D-Dimer, Quantitative (0.0-400.0) ng/mL Sodium (140-148) mmol/L Potassium (3.6-5.2) mmol/L Chloride (100-108) mmol/L Carbon Dioxide (21-32) mmol/L Anion Gap (5.0-14.0) mmol/L BUN (7-18) mg/dL Creatinine (0.8-1.3) mg/dL Est Cr Clr Drug Dosing mL/min Estimated GFR (MDRD) (>60) Glucose (74-106) mg/dL Calcium (8.5-10.1) mg/dL Total Bilirubin (0.2-1.0) mg/dL AST (15-37) U/L ALT (12-78) U/L Alkaline Phosphatase (46-116) U/L Lactate Dehydrogenase 219 (85-227) U/L C-Reactive Protein 1.34 H (0.0-0.3) mg/dL NT-Pro-B Natriuret Pep 114 (5-450) pg/mL Total Protein (6.4-8.2) g/dL Albumin (3.4-5.0) g/dL Globulin (2.3-3.5) g/dL Albumin/Globulin Ratio (1.2-2.2) Meds: Medications Discontinued Medications Generic Name Dose Route Start Last Admin Trade Name John Paul PRN Reason Stop Dose Admin Lactated Ringer's 1,000 mls @ 1,000 mls/hr 12/02/19 17:37 12/02/19 17:58 Ringers, Lactated IV 12/02/19 18:36 1,000 mls/hr BOLUS ONE Administration - Re-Assessments/Exams Free Text/Narrative Re-Assessment/Exam: 12/02/19 20:41 pt had a cheast xray which did not reveal a pneumonioa.He has a low wbc. He has a nmormal ldh, normal Ddimer and a mild elevation in his crp. Departure - Departure Time of Disposition: 20:42 Disposition: DC/Tfer to Acute Hospital 02 Condition: Fair Clinical Impression: COVID-19, Dehydration, Diarrhea - Discharge Information Referrals: PCP,None [Primary Care Provider] - Forms: ED Department Discharge Care Plan Goals: transfer to [place]. -- [facility] Sepsis Event Note (ED) - Evaluation Sepsis Screening Result: No Definite Risk - Focused Exam Vital Signs: Vital Signs Temp Pulse Resp BP Pulse Ox 12/02/19 20:30 37.1 C 62 20 91 L 12/02/19 20:00 52 L 18 139/87 93 L 12/02/19 19:30 62 17 137/82 93 L 12/02/19 19:00 81 18 138/89 92 L 12/02/19 18:30 64 18 133/80 93 L 12/02/19 18:00 63 20 124/76 92 L 12/02/19 17:31 94 L 12/02/19 17:30 71 18 115/73 92 L 12/02/19 16:47 37.0 C 65 20 119/77 94 L
[2019-12-02 20:28] VITALS: BP 139/87
[2019-12-02 20:31] VITALS: PULSE 62
[2019-12-02] MEDS ORDERED: Sodium Chloride 0.9% 1,000 ML IV SCH (20:45)
== END 2019-12-02 21:15 ==
LOC: JP.ED 16:31
DX: U07.1 COVID-19 (principal); E86.0 Dehydration; R19.7 Diarrhea, unspecified; I11.0 Hypertensive heart disease with heart failure; I50.9 Heart failure, unspecified; E78.00 Pure hypercholesterolemia, unspecified; J44.9 Chronic obstructive pulmonary disease, unspecified; E11.9 Type 2 diabetes mellitus without complications; M19.90 Unspecified osteoarthritis, unspecified site; F03.90 Unspecified dementia, unspecified severity, without behavioral disturbance, psychotic disturbance, mood disturbance, and anxiety; E66.9 Obesity, unspecified; Z87.891 Personal history of nicotine dependence; Z68.27 Body mass index [BMI] 27.0-27.9, adult; Z88.5 Allergy status to narcotic agent; Z79.82 Long term (current) use of aspirin; Z79.84 Long term (current) use of oral hypoglycemic drugs; Z79.899 Other long term (current) drug therapy
CPT/HCPCS: 36415; 71045; 80053; 83615; 83880; 85027; 85379; 86140; 96360; 96361; 99285; J7030; J7120

== ENCOUNTER 2020-09-29 12:38 | Emergency (ER) | payer MEDICARE, BC ==
[2020-09-29 12:52] VITALS: BP 149/83; PULSE 58
[2020-09-29] MEDS ORDERED: Sodium Chloride 0.9% 1,000 ML IV SCH (14:00)
--- NOTE | 2020-09-29 14:03 | EDM.PDOC ---
<Irasema Pichardo - Last Filed: 09/29/20 18:52> ED HPI GENERAL MEDICAL PROBLEM - General Chief Complaint: General Stated Complaint: DIAHREA AND VOMITING FOR A WK Time Seen by Provider: 09/29/20 13:50 Source of Information: Reports: Patient, Family History Limitations: Reports: Other (mild confusion) - History of Present Illness INITIAL COMMENTS - FREE TEXT/NARRATIVE: 84 year old male with history of hypertension, COPD, CHF, and mild dementia arrives with complaints of nausea, vomiting, and diarrhea. reports that for the last 5 days the patient has been having multiple episodes of nausea with vomiting and diarrhea each day. She states he has had a decreased oral intake and has had nothing at all to eat today. Patient is a diabetic with Trulicity and metformin. He has been having some episodes of hypoglycemia with sugars as low as 50 at home. reports patient has been having dark diarrhea stools but has been taking Pepto Bismol. She also reports some increased confusion with dark urine and in the past has had UTI's with similar presentation. Patient denies measured fevers but reports episodes of chills and sweats at home. Denies hematemesis, hematuria, cough, SOB, weight gait, or other associated symptoms. Onset: Gradual Onset Date: 09/24/20 Duration: Day(s): Location: Reports: Abdomen Quality: Reports: Ache Severity: Moderate Improves with: Reports: None Worsens with: Reports: Eating Context: Reports: Other (onset 5 days ago, had a GI illness but recovered. ) Associated Symptoms: Reports: Confusion, Fever/Chills, Nausea/Vomiting, Weakness - Related Data Allergies Allergy/AdvReac Type Severity Reaction Status Date / Time opium (anthroposophic) Allergy Unknown Hives Verified 03/30/19 23:28 [Opium (Anthroposophic)] tramadol Allergy Unknown Rash Verified 03/30/19 23:28 Home Meds: Home Meds Albuterol Sulfate [Albuterol Sulfate HFA] 2 puff INH Q6H PRN 06/04/13 [History] Furosemide 40 mg PO DAILY 06/04/13 [History] Glimepiride 2 mg PO DAILY 06/04/13 [History] Lisinopril 40 mg PO DAILY 06/04/13 [History] amLODIPine Besylate [Amlodipine Besylate] 5 mg PO DAILY 06/04/13 [History] carvediloL [Carvedilol] 25 mg PO BID 06/04/13 [History] metFORMIN [Glucophage] 1,000 mg PO BID 06/04/13 [History] Donepezil HCl 1 tab PO BEDTIME 03/30/19 [History] Albuterol [Proventil Neb Soln] 2.5 mg .XX Q6H 11/24/19 [History] Aspirin [Halfprin] 81 mg PO DAILY 11/24/19 [History] Simvastatin [Zocor] 20 mg PO BEDTIME 11/24/19 [History] Dulaglutide [Trulicity] 0.75 mg SQ WEEKLY 09/29/20 [History] Past Medical History HEENT History: Reports: Hard of Hearing, Impaired Vision Cardiovascular History: Reports: Heart Failure, High Cholesterol, Hypertension Respiratory History: Reports: Asthma, COPD, Other (See Below) Other Respiratory History: postive COVID-19 TEST 11/23 Gastrointestinal History: Reports: Bowel Obstruction, Diverticulosis, GERD Genitourinary History: Reports: BPH, Urinary Incontinence Musculoskeletal History: Reports: Arthritis Endocrine/Metabolic History: Reports: Diabetes, Type II, Obesity/BMI 30+ Hematologic History: Reports: Blood Transfusion(s) Oncologic (Cancer) History: Reports: Bladder, Other (See Below) Other Oncologic History: skin cancer - Infectious Disease History Infectious Disease History: Reports: Other (See Below) Other Infectious Disease History: COVID-19 - Past Surgical History HEENT Surgical History: Reports: Tonsillectomy GI Surgical History: Reports: Colon, Colonoscopy Male Surgical History: Reports: Cystectomy, Prostatectomy, Other (See Below) Other Male Surgeries/Procedures: partial Musculoskeletal Surgical History: Reports: Knee Replacement, Shoulder Surgery Social & Family History - Family History Family Medical History: No Pertinent Family History - Tobacco Use Tobacco Use Status *Q: Never Tobacco User - Caffeine Use Caffeine Use: Reports: Coffee - Living Situation & Occupation Living situation: Reports: Occupation: Retired (lives with in [place], [place].) ED [facility] GENERAL - Review of Systems Review Of Systems: See Below Constitutional: Reports: No Symptoms, Fever, Chills, Weakness, Fatigue, Decreased Appetite HEENT: Reports: No Symptoms Respiratory: Reports: No Symptoms. Denies: Shortness of Breath, Wheezing, Cough Cardiovascular: Reports: No Symptoms. Denies: Chest Pain, Edema, Lightheadedness Endocrine: Reports: Low Glucose GI/Abdominal: Reports: Abdominal Pain, Diarrhea, Nausea, Vomiting : Reports: No Symptoms. Denies: Flank Pain, Hematuria Musculoskeletal: Reports: No Symptoms. Denies: Neck Pain, Shoulder Pain, Arm Pain, Back Pain Skin: Reports: No Symptoms. Denies: Jaundice, Diaphoresis, Rash, Wound Neurological: Reports: Confusion. Denies: Dizziness, Headache, Numbness, Trouble Speaking, Change in Speech, Gait Disturbance Psychiatric: Reports: No Symptoms Hematologic/Lymphatic: Reports: No Symptoms Immunologic: Reports: No Symptoms ED EXAM, GENERAL - Physical Exam Exam: See Below Free Text/Narrative:: Laureano is a tired appearing male resting on the cart with at bedside. Patient is falling asleep during assessment. He is oriented and alert during conversations when prompted. Respirations are regular and non labored. skin is warm and dry. He has abdominal tenderness throughout abdomen with palpation. Lungs are clear through out. He is not tachycardic or hypertensive. His BG now is 126. Rectal exam does not appear abnormal, stool is brown with occult blood sample, no blood noted. No pedal edema. Exam Limited By: Other (mild increased confusion. Mild dementia at baseline per ) General Appearance: Alert, Mild Distress Ears: Normal External Exam Nose: Normal Inspection, Normal Mucosa Throat/Mouth: Normal Inspection Head: Atraumatic Neck: Normal Inspection, Non-Tender, Full Range of Motion Respiratory/Chest: No Respiratory Distress, Lungs Clear, Normal Breath Sounds, No Accessory Muscle Use, Chest Non-Tender. No: Respiratory Distress, Crackles, Wheezing, Stridor, Splinting Cardiovascular: Normal Peripheral Pulses, No Edema. No: Tachycardia GI/Abdominal: Normal Bowel Sounds, Soft, Tender (Male) Exam: Deferred Rectal (Males) Exam: Normal Rectal Tone. No: Hemorrhoids Back Exam: Normal Inspection, Full Range of Motion Extremities: Normal Inspection, Normal Range of Motion, Non-Tender, No Pedal Edema Neurological: Alert, Oriented, Confused (mild confusion at baseline- thinks a little worse with illness) Psychiatric: Normal Affect, Normal Mood Skin Exam: Warm, Dry, Intact, No Rash. No: Diaphoretic, Increased Warmth, Jaundice Lymphatic: No Adenopathy Course - Vital Signs Text/Narrative:: CBC, CMP, Lactic, stool analysis, Occult blood analysis, urine analysis, and fluids ordered. Waiting for results at this time. Patient agrees with plan of care. Departure - Departure Time of Disposition: 17:23 Disposition: Home, Self-Care 01 Condition: Good Clinical Impression: Vomiting, Diarrhea - Discharge Information Instructions: Diarrhea, Adult, Nausea and Vomiting, Adult Referrals: Bo Sutherland MD [Primary Care Provider] - Forms: ED Department Discharge Additional Instructions: Your lab work came back looking ok, today. The labs we checked to look for infection were negative. Your electrolytes were normal despite the frequent diarrhea and vomiting. The lab that we checked to look for blood in your stool also was negative. You do not have a UTI either. Please try to stay hydrated by taking frequent small sips of water, or clear liquids and advancing your diet as tolerated. Prescription (Zofran) sent to the [employer] machine for nausea to take as needed. Return to the ER if you have continued frequent vomiting and or frequent diarrhea, consistent low blood sugars, if you have a high fever, increased confusion, increased weakness, or other concerning symptoms. Sepsis Event Note (ED) - Evaluation Sepsis Screening Result: No Definite Risk <Bo Rosario - Last Filed: 09/30/20 11:21> Course - Vital Signs Last Recorded V/S: Last Vital Signs Temp 97.7 F 09/29/20 12:50 Pulse 58 L 09/29/20 12:50 Resp 18 09/29/20 12:50 BP 149/83 H 09/29/20 12:50 Pulse Ox 94 L 09/29/20 12:50 - Orders/Labs/Meds Orders: Active Orders 24 hr Category Date Time Status WBC, STOOL [OP] Routine Lab 09/29/20 14:14 Ordered Saline Lock Insert [OM.PC] Routine Oth 09/29/20 13:57 Ordered Labs: Laboratory Tests 09/29/20 09/29/20 09/29/20 Range/Units 14:12 14:12 14:12 WBC 7.7 (4.5-11.0) K/uL RBC 4.95 (4.30-5.90) M/uL Hgb 14.4 (12.0-15.0) g/dL Hct 41.8 (40.0-54.0) % POC Hct (36-48) % MCV 84 (80-98) fL MCH 29 (27-31) pg MCHC 34 (32-36) % Plt Count 284 (150-400) K/uL Add Manual Diff Yes Neutrophils % (Manual) 59 (36-66) % Band Neutrophils % 2 L (5-11) % Lymphocytes % (Manual) 20 L (24-44) % Monocytes % (Manual) 12 H (2-6) % Eosinophils % (Manual) 3 (2-4) % Blast Cells % 4 % POC Capillary pH (7.31-7.41) POC Capillary pCO2 (41.0-51.0) mmHg POC Capillary pO2 mmHg POC Capillary HCO3 (23.0-28.0) mmol/L POC Capill Base Excess mmol/L POC Capillary O2 Sat % POC Sodium (140-148) mmol/L POC Potassium (3.5-4.9) mmol/L POC Total CO2 (24-29) mmol/L Creatinine 1.2 (0.8-1.3) mg/dL Est Cr Clr Drug Dosing 42.09 mL/min Estimated GFR (MDRD) 58 L (>60) Lactic Acid 1.2 (0.7-2.1) mmol/L POC WB Ioniz Calcium (1.12-1.32) mmol/L Urine Color (YELLOW) Urine Appearance (CLEAR) Urine pH (5.0-8.0) Ur Specific [place] (1.008-1.030) Urine Protein (NEGATIVE) mg/dL Urine Glucose (UA) (NEGATIVE) mg/dL Urine Ketones (NEGATIVE) mg/dL Urine Occult Blood (NEGATIVE) Urine Nitrite (NEGATIVE) Urine Bilirubin (NEGATIVE) Urine Urobilinogen (0.2-1.0) EU/dL Ur Leukocyte Esterase (NEGATIVE) Urine RBC (0-5) Urine WBC (0-5) Ur Epithelial Cells Amorphous Sediment Urine Bacteria Urine Mucus 09/29/20 09/29/20 Range/Units 14:12 16:36 WBC (4.5-11.0) K/uL RBC (4.30-5.90) M/uL Hgb (12.0-15.0) g/dL Hct (40.0-54.0) % POC Hct 43 (36-48) % MCV (80-98) fL MCH (27-31) pg MCHC (32-36) % Plt Count (150-400) K/uL Add Manual Diff Neutrophils % (Manual) (36-66) % Band Neutrophils % (5-11) % Lymphocytes % (Manual) (24-44) % Monocytes % (Manual) (2-6) % Eosinophils % (Manual) (2-4) % Blast Cells % % POC Capillary pH 7.40 (7.31-7.41) POC Capillary pCO2 41.1 (41.0-51.0) mmHg POC Capillary pO2 48 mmHg POC Capillary HCO3 25.5 (23.0-28.0) mmol/L POC Capill Base Excess 1 mmol/L POC Capillary O2 Sat 84 % POC Sodium 141 (140-148) mmol/L POC Potassium 3.3 L (3.5-4.9) mmol/L POC Total CO2 27 (24-29) mmol/L Creatinine (0.8-1.3) mg/dL Est Cr Clr Drug Dosing mL/min Estimated GFR (MDRD) (>60) Lactic Acid (0.7-2.1) mmol/L POC WB Ioniz Calcium 1.16 (1.12-1.32) mmol/L Urine Color Yellow (YELLOW) Urine Appearance Clear (CLEAR) Urine pH 5.5 (5.0-8.0) Ur Specific [place] 1.025 (1.008-1.030) Urine Protein 30 H (NEGATIVE) mg/dL Urine Glucose (UA) Negative (NEGATIVE) mg/dL Urine Ketones 15 H (NEGATIVE) mg/dL Urine Occult Blood Negative (NEGATIVE) Urine Nitrite Negative (NEGATIVE) Urine Bilirubin Small H (NEGATIVE) Urine Urobilinogen 0.2 (0.2-1.0) EU/dL Ur Leukocyte Esterase Negative (NEGATIVE) Urine RBC Not seen (0-5) Urine WBC Not seen (0-5) Ur Epithelial Cells Moderate Amorphous Sediment Few Urine Bacteria Moderate Urine Mucus Few Meds: Medications Discontinued Medications Generic Name Dose Route Start Last Admin Trade Name Freq PRN Reason Stop Dose Admin Sodium Chloride 1,000 mls @ 500 mls/hr 09/29/20 14:00 09/29/20 14:31 Normal Saline IV 500 mls/hr ASDIRECTED YANDEL Administration - My Orders Last 24 Hours: My Active Orders 09/29/20 14:14 WBC, STOOL [OP] Routine - Assessment/Plan Last 24 Hours: My Active Orders 09/29/20 14:14 WBC, STOOL [OP] Routine Attestation - Student - Attestation Statement Attestation Statement: I personally performed or re-performed the physical examination and medical decision making. I have verified all student documentation or findings, including history, physical exam and/or medical decision making.
== END 2020-09-29 17:23 | disposition home or self-care (01) ==
LOC: JP.ED 12:38
DX: R11.2 Nausea with vomiting, unspecified (principal); R19.7 Diarrhea, unspecified; I11.0 Hypertensive heart disease with heart failure; I50.9 Heart failure, unspecified; E78.00 Pure hypercholesterolemia, unspecified; J44.9 Chronic obstructive pulmonary disease, unspecified; M19.90 Unspecified osteoarthritis, unspecified site; E11.9 Type 2 diabetes mellitus without complications; F03.90 Unspecified dementia, unspecified severity, without behavioral disturbance, psychotic disturbance, mood disturbance, and anxiety; E66.9 Obesity, unspecified; Z68.29 Body mass index [BMI] 29.0-29.9, adult; Z86.16 Personal history of COVID-19; Z88.5 Allergy status to narcotic agent; Z91.048 Other nonmedicinal substance allergy status; Z79.82 Long term (current) use of aspirin; Z79.84 Long term (current) use of oral hypoglycemic drugs; Z79.899 Other long term (current) drug therapy
CPT/HCPCS: 36415; 81001; 82272; 82330; 82565; 82803; 83605; 84132; 84295; 85014; 85025; 99284; J7030

== ENCOUNTER 2020-10-01 13:57 | Inpatient (IN) | payer MEDICARE, BC ==
[2020-10-01] MEDS ORDERED: Sodium Chloride 0.9% 10 ML Syringe FLUSH PRN ×2 (14:45→17:28)
[2020-10-01] MEDS ORDERED: Lactated Ringers 1,000 ML IV SCH (14:45)
[2020-10-01] MEDS ORDERED: Ondansetron 4 MG/2 ML SDV IVPUSH ONE (14:47)
--- NOTE | 2020-10-01 14:49 | EDM.PDOC ---
ED HPI GENERAL MEDICAL PROBLEM - General Chief Complaint: Gastrointestinal Problem Stated Complaint: WEAKNESS Time Seen by Provider: 10/01/20 14:39 Source of Information: Reports: Patient, Family, Old Records, RN Notes Reviewed History Limitations: Reports: No Limitations - History of Present Illness INITIAL COMMENTS - FREE TEXT/NARRATIVE: 84-year-old gentleman presents emergency department day complaint of nausea vomiting diarrhea. He was recently in the emergency department 4 days prior same complaint he is now been ill total 10 days. His new medication Trulicity which he has been on for about 1 month's time. He denies any fevers no shortness of breath no chest pain he feels his abdomen is mildly distended. - Related Data Allergies Allergy/AdvReac Type Severity Reaction Status Date / Time opium (anthroposophic) Allergy Unknown Hives Verified 10/01/20 14:35 [Opium (Anthroposophic)] tramadol Allergy Unknown Rash Verified 10/01/20 14:35 Home Meds: Home Meds Albuterol Sulfate [Albuterol Sulfate HFA] 2 puff INH Q6H PRN 06/04/13 [History] Furosemide 40 mg PO DAILY 06/04/13 [History] Glimepiride 2 mg PO DAILY 06/04/13 [History] Lisinopril 40 mg PO DAILY 06/04/13 [History] amLODIPine Besylate [Amlodipine Besylate] 5 mg PO DAILY 06/04/13 [History] carvediloL [Carvedilol] 25 mg PO BID 06/04/13 [History] metFORMIN [Glucophage] 1,000 mg PO BID 06/04/13 [History] Donepezil HCl 1 tab PO BEDTIME 03/30/19 [History] Albuterol [Proventil Neb Soln] 2.5 mg .XX Q6H 11/24/19 [History] Aspirin [Halfprin] 81 mg PO DAILY 11/24/19 [History] Simvastatin [Zocor] 20 mg PO BEDTIME 11/24/19 [History] Dulaglutide [Trulicity] 0.75 mg SQ WEEKLY 09/29/20 [History] Past Medical History HEENT History: Reports: Hard of Hearing, Impaired Vision Cardiovascular History: Reports: Heart Failure, High Cholesterol, Hypertension Respiratory History: Reports: Asthma, COPD, Other (See Below) Other Respiratory History: postive COVID-19 TEST 11/23 Gastrointestinal History: Reports: Bowel Obstruction, Diverticulosis, GERD Genitourinary History: Reports: BPH, Urinary Incontinence Musculoskeletal History: Reports: Arthritis Endocrine/Metabolic History: Reports: Diabetes, Type II, Obesity/BMI 30+ Hematologic History: Reports: Blood Transfusion(s) Oncologic (Cancer) History: Reports: Bladder, Other (See Below) Other Oncologic History: skin cancer - Infectious Disease History Infectious Disease History: Reports: Other (See Below) Other Infectious Disease History: COVID-19 - Past Surgical History HEENT Surgical History: Reports: Tonsillectomy GI Surgical History: Reports: Colon, Colonoscopy Male Surgical History: Reports: Cystectomy, Prostatectomy, Other (See Below) Other Male Surgeries/Procedures: partial Musculoskeletal Surgical History: Reports: Knee Replacement, Shoulder Surgery Social & Family History - Family History Family Medical History: No Pertinent Family History - Caffeine Use Caffeine Use: Reports: Coffee - Living Situation & Occupation Living situation: Reports: Occupation: Retired (lives with in [place], [place].) ED ROS GENERAL - Review of Systems Review Of Systems: See Below Constitutional: Reports: Weakness, Fatigue. Denies: Fever, Chills HEENT: Reports: No Symptoms Respiratory: Reports: No Symptoms Cardiovascular: Reports: No Symptoms GI/Abdominal: Reports: Diarrhea, Flatus, Nausea, Vomiting. Denies: Abdominal Pain : Reports: No Symptoms ED EXAM, GI/ABD - Physical Exam Exam: See Below Exam Limited By: No Limitations General Appearance: Alert, WD/WN, No Apparent Distress Respiratory/Chest: No Respiratory Distress, Lungs Clear, Normal Breath Sounds, No Accessory Muscle Use, Chest Non-Tender Cardiovascular: Regular Rate, Rhythm, No Murmur GI/Abdominal Exam: Soft, Non-Tender Course - Vital Signs Last Recorded V/S: Last Vital Signs Temp 96.9 F 10/01/20 14:37 Pulse 86 10/01/20 15:10 Resp 17 10/01/20 14:37 BP 133/97 H 10/01/20 15:10 Pulse Ox 96 10/01/20 14:37 - Orders/Labs/Meds Orders: Active Orders 24 hr Category Date Time Status Peripheral IV Care [RC] . DIRECTED Care 10/01/20 14:46 Active Abdomen 1V Upright [CR] Urgent Exams 10/01/20 14:45 Ordered UA W/MICROSCOPIC [URIN] Urgent Lab 10/01/20 14:45 Ordered Lactated Ringers [Ringers, Lactated] 1,000 ml Med 10/01/20 14:45 Active IV ASDIRECTED Sodium Chloride 0.9% [Saline Flush] Med 10/01/20 14:45 Active 10 ml FLUSH ASDIRECTED PRN Peripheral IV Insertion Adult [OM.PC] Urgent Oth 10/01/20 14:45 Ordered Medication Orders Lactated Ringer's (Ringers, Lactated) 1,000 mls @ 999 mls/hr IV ASDIRECTED YANDEL Last Admin: 10/01/20 15:04 Dose: 999 mls/hr Documented by: EVERT Sodium Chloride (Sodium Chloride 0.9% 10 Ml Syringe) 10 ml FLUSH ASDIRECTED PRN PRN Reason: Keep Vein Open Last Admin: 10/01/20 15:04 Dose: 10 ml Documented by: EVERT Labs: Laboratory Tests 10/01/20 10/01/20 10/01/20 Range/Units 15:12 15:12 15:12 WBC 10.2 (4.5-11.0) K/uL RBC 5.57 (4.30-5.90) M/uL Hgb 16.2 H (12.0-15.0) g/dL Hct 47.1 (40.0-54.0) % MCV 85 (80-98) fL MCH 29 (27-31) pg MCHC 34 (32-36) % Plt Count 319 (150-400) K/uL Neut % (Auto) 62.4 (36-66) % Lymph % (Auto) 16.4 L (24-44) % [place] % (Auto) 12.0 H (2-6) % Eos % (Auto) 8.6 H (2-4) % Baso % (Auto) 0.6 (0-1) % Sodium 139 L (140-148) mmol/L Potassium 3.9 (3.6-5.2) mmol/L Chloride 101 (100-108) mmol/L Carbon Dioxide 24 (21-32) mmol/L Anion Gap 17.9 H (5.0-14.0) mmol/L BUN 15 (7-18) mg/dL Creatinine 1.6 H (0.8-1.3) mg/dL Est Cr Clr Drug Dosing 31.57 mL/min Estimated GFR (MDRD) 41 L (>60) Glucose 173 H (74-106) mg/dL Lactic Acid 1.3 (0.4-2.0) mmol/L Calcium 8.3 L (8.5-10.1) mg/dL Total Bilirubin 0.3 (0.2-1.0) mg/dL AST 9 L (15-37) U/L ALT 14 (12-78) U/L Alkaline Phosphatase 65 (46-116) U/L Troponin I < 0.017 (0.000-0.056) ng/mL Total Protein 6.7 (6.4-8.2) g/dL Albumin 2.9 L (3.4-5.0) g/dL Globulin 3.8 H (2.3-3.5) g/dL Albumin/Globulin Ratio 0.8 L (1.2-2.2) Meds: Medications Generic Name Dose Route Start Last Admin Trade Name Freq PRN Reason Stop Dose Admin Lactated Ringer's 1,000 mls @ 999 mls/hr 10/01/20 14:45 10/01/20 15:04 Ringers, Lactated IV 999 mls/hr ASDIRECTED YANDEL Administration Sodium Chloride 10 ml 10/01/20 14:45 10/01/20 15:04 Sodium Chloride 0.9% 10 Ml Syringe FLUSH 10 ml ASDIRECTED PRN Administration Keep Vein Open Discontinued Medications Generic Name Dose Route Start Last Admin Trade Name Freq PRN Reason Stop Dose Admin Ondansetron HCl 4 mg 10/01/20 14:47 10/01/20 15:04 Ondansetron 4 Mg/2 Ml Sdv IVPUSH 10/01/20 14:48 4 mg ONETIME ONE Administration Departure - Departure Time of Disposition: 16:02 Disposition: Refer to Observation Condition: Fair Clinical Impression: Dehydration Nausea and vomiting Qualifiers: Vomiting type: unspecified Vomiting Intractability: non-intractable Qualified Code(s): R11.2 - Nausea with vomiting, unspecified - Discharge Information Referrals: Bo Sutherland MD [Primary Care Provider] - Forms: ED Department Discharge Sepsis Event Note (ED) - Evaluation Sepsis Screening Result: No Definite Risk - Focused Exam Vital Signs: Vital Signs Temp Pulse Resp BP Pulse Ox 10/01/20 15:10 86 133/97 H 10/01/20 14:37 96.9 F 82 17 124/70 96 10/01/20 14:33 96.9 F 82 17 124/70 96 - My Orders Last 24 Hours: My Active Orders 10/01/20 14:45 Abdomen 1V Upright [CR] Urgent UA W/MICROSCOPIC [URIN] Urgent Lactated Ringers [Ringers, Lactated] 1,000 ml IV ASDIRECTED Sodium Chloride 0.9% [Saline Flush] 10 ml FLUSH ASDIRECTED PRN Peripheral IV Insertion Adult [OM.PC] Urgent 10/01/20 14:46 Peripheral IV Care [RC] . DIRECTED - Assessment/Plan Last 24 Hours: My Active Orders 10/01/20 14:45 Abdomen 1V Upright [CR] Urgent UA W/MICROSCOPIC [URIN] Urgent Lactated Ringers [Ringers, Lactated] 1,000 ml IV ASDIRECTED Sodium Chloride 0.9% [Saline Flush] 10 ml FLUSH ASDIRECTED PRN Peripheral IV Insertion Adult [OM.PC] Urgent 10/01/20 14:46 Peripheral IV Care [RC] . DIRECTED Plan: Assessment Acuity = acute Site and laterality = intravascular volume depletion complicated patient known history of hypertension dyslipidemia COPD diabetes mellitus type 2 Etiology = unknown Manifestations = nausea vomiting diarrhea Location of injury = Home Lab values = CBC unremarkable creatinine elevated 1.6 consistent with acute renal failure stage G3 B baseline kidney function appears to be around 1-1.2, albumin low 2.9 consistent with hypoalbuminemia plain film abdomen does show a large amount of gas in the large colon Plan Call discussed case with hospitalist on-call at 1600 kindly agreed to come evaluate the patient emergency department for admission This note was dictated using [employer] voice recognition software please call with any questions on syntax or grammar.
--- NOTE | 2020-10-01 16:58 | PCM.HP.2 ---
H&P History of Present Illness - General Date of Service: 10/01/20 Admit Problem/Dx: Admission Diagnosis/Problem Admission Diagnosis/Problem Nausea and vomiting Source of Information: Patient, Family, Provider, RN Notes Reviewed History Limitations: Reports: Altered Mental Status (Dementia) - History of Present Illness Initial Comments - Free Text/Narative: Mr. Burgos is an 84-year-old gentleman who was admitted through the emergency department observation status with persistent nausea, vomiting, and diarrhea. Symptoms have been present now for approximately 2 weeks. His was ill before he became ill but she recovered after just a few days. This is his second visit to the emergency department in the past 2 days, during that period of time he has become more weak and oral intake has been very poor. There has been apparently no fever or chills, and he denies abdominal pain. There is evidence of dehydration on this visit with an increase in his creatinine from baseline. Abdominal x-ray was obtained and shows nonspecific bowel gas pattern. Patient is unable to provide meaningful history concerning recent symptoms or review of systems because of underlying dementia. - Related Data Allergies/Adverse Reactions: Allergies Allergy/AdvReac Type Severity Reaction Status Date / Time opium (anthroposophic) Allergy Unknown Hives Verified 10/01/20 14:35 [Opium (Anthroposophic)] tramadol Allergy Unknown Rash Verified 10/01/20 14:35 Home Medications: Home Meds Albuterol Sulfate [Albuterol Sulfate HFA] 2 puff INH Q6H PRN 06/04/13 [History] Furosemide 40 mg PO DAILY 06/04/13 [History] Glimepiride 2 mg PO DAILY 06/04/13 [History] Lisinopril 40 mg PO DAILY 06/04/13 [History] amLODIPine Besylate [Amlodipine Besylate] 5 mg PO DAILY 06/04/13 [History] carvediloL [Carvedilol] 25 mg PO BID 06/04/13 [History] metFORMIN [Glucophage] 1,000 mg PO BID 06/04/13 [History] Donepezil HCl 1 tab PO BEDTIME 03/30/19 [History] Albuterol [Proventil Neb Soln] 2.5 mg .XX Q6H 11/24/19 [History] Aspirin [Halfprin] 81 mg PO DAILY 11/24/19 [History] Simvastatin [Zocor] 20 mg PO BEDTIME 11/24/19 [History] Dulaglutide [Trulicity] 0.75 mg SQ WEEKLY 09/29/20 [History] Past Medical History HEENT History: Reports: Hard of Hearing, Impaired Vision Cardiovascular History: Reports: Heart Failure, High Cholesterol, Hypertension Respiratory History: Reports: Asthma, COPD, Other (See Below) Other Respiratory History: postive COVID-19 TEST 11/23 Gastrointestinal History: Reports: Bowel Obstruction, Diverticulosis, GERD Genitourinary History: Reports: BPH, Urinary Incontinence Musculoskeletal History: Reports: Arthritis Endocrine/Metabolic History: Reports: Diabetes, Type II, Obesity/BMI 30+ Hematologic History: Reports: Blood Transfusion(s) Oncologic (Cancer) History: Reports: Bladder, Other (See Below) Other Oncologic History: skin cancer - Infectious Disease History Infectious Disease History: Reports: Other (See Below) Other Infectious Disease History: COVID-19 - Past Surgical History HEENT Surgical History: Reports: Tonsillectomy GI Surgical History: Reports: Colon, Colonoscopy Male Surgical History: Reports: Cystectomy, Prostatectomy, Other (See Below) Other Male Surgeries/Procedures: partial Musculoskeletal Surgical History: Reports: Knee Replacement, Shoulder Surgery Social & Family History - Family History Family Medical History: No Pertinent Family History - Caffeine Use Caffeine Use: Reports: Coffee - Living Situation & Occupation Living situation: Reports: Occupation: Retired (lives with in [place], [place].) H&P Review of Systems - Review of Systems: Review Of Systems: See Below General: Reports: ROS unobtainable (Dementia) Exam - Exam Exam: See Below - Vital Signs Vital Signs: Last Vital Signs Temp 96.9 F 10/01/20 14:37 Pulse 77 10/01/20 16:10 Resp 17 10/01/20 14:37 BP 107/75 10/01/20 16:10 Pulse Ox 94 L 10/01/20 16:10 Weight: 170 lb - Exam Quality Assessment: DVT Prophylaxis General: Alert, Cooperative, Moderate Distress. No: Oriented HEENT: Conjunctiva Clear, Hearing Intact, Normal Nasal Septum, Posterior Pharynx Clear, Pupils Equal. No: Mucosa Moist & [place] Neck: Supple, Trachea Midline, +2 Carotid Pulse wo Bruit Lungs: Clear to Auscultation, Normal Respiratory Effort Cardiovascular: Regular Rate, Regular Rhythm, Normal S1, Normal S2. No: Systoli c Murmur, Diastolic Murmur GI/Abdominal Exam: Soft, Non-Tender, No Organomegaly, No Distention Back Exam: Normal Inspection, Full Range of Motion Extremities: Non-Tender, No Pedal Edema Skin: Warm, Dry, Intact Neurological: Cranial Nerves Intact, Strength Equal Bilateral, Normal Speech, Normal Tone, Sensation Intact. No: Focal Deficit Neuro Extensive - Mental Status: Alert, Normal Mood/Affect, Disorientation to Place, Disorientation to Time, Memory Loss-Remote Events, Memory Loss-Recent Events. No: Oriented x3, Normal Cognition, Memory Intact - Patient Data Lab Results Last 24 hrs: Laboratory Results - last 24 hr 10/01/20 10/01/20 10/01/20 Range/Units 15:12 15:12 15:12 WBC 10.2 (4.5-11.0) K/uL RBC 5.57 (4.30-5.90) M/uL Hgb 16.2 H (12.0-15.0) g/dL Hct 47.1 (40.0-54.0) % MCV 85 (80-98) fL MCH 29 (27-31) pg MCHC 34 (32-36) % Plt Count 319 (150-400) K/uL Neut % (Auto) 62.4 (36-66) % Lymph % (Auto) 16.4 L (24-44) % [place] % (Auto) 12.0 H (2-6) % Eos % (Auto) 8.6 H (2-4) % Baso % (Auto) 0.6 (0-1) % Sodium 139 L (140-148) mmol/L Potassium 3.9 (3.6-5.2) mmol/L Chloride 101 (100-108) mmol/L Carbon Dioxide 24 (21-32) mmol/L Anion Gap 17.9 H (5.0-14.0) mmol/L BUN 15 (7-18) mg/dL Creatinine 1.6 H (0.8-1.3) mg/dL Est Cr Clr Drug Dosing 31.57 mL/min Estimated GFR (MDRD) 41 L (>60) Glucose 173 H (74-106) mg/dL Lactic Acid 1.3 (0.4-2.0) mmol/L Calcium 8.3 L (8.5-10.1) mg/dL Total Bilirubin 0.3 (0.2-1.0) mg/dL AST 9 L (15-37) U/L ALT 14 (12-78) U/L Alkaline Phosphatase 65 (46-116) U/L Troponin I < 0.017 (0.000-0.056) ng/mL Total Protein 6.7 (6.4-8.2) g/dL Albumin 2.9 L (3.4-5.0) g/dL Globulin 3.8 H (2.3-3.5) g/dL Albumin/Globulin Ratio 0.8 L (1.2-2.2) Result Diagrams: 10/01/20 15:12 10/01/20 15:12 Sepsis Event Note - Evaluation Sepsis Screening Result: No Definite Risk - Focused Exam Vital Signs: Vital Signs Temp Pulse Resp BP Pulse Ox 10/01/20 16:10 77 107/75 94 L 10/01/20 15:10 86 133/97 H 10/01/20 14:37 96.9 F 82 17 124/70 96 10/01/20 14:33 96.9 F 82 17 124/70 96 *Q Meaningful Use (ADM) - VTE Risk Assess *Q Each Risk Factor Represents 1 Point: Obesity ( BMI > 25 kg/m2) Total Score 1 Point Risk Factors: 1 Each Risk Factor Represents 2 Points: None Total Score 2 Point Risk Factors: 0 Each Risk Factor Represents 3 Points: Age 75 Years or Greater Total Score 3 Point Risk Factors: 3 Each Risk Factor Represents 5 Points: None Total Score 5 Point Risk Factors: 0 Venous Thromboembolism Risk Factor Score *Q: 4 Problem List Initiated/Reviewed/Updated: Yes Orders Last 24hrs: Active Orders 24 hr Category Date Time Status Patient Status Manage Transfer [TRANSFER] Routine ADT 10/01/20 16:49 Ordered Peripheral IV Care [RC] . DIRECTED Care 10/01/20 14:46 Active Abdomen 1V Upright [CR] Urgent Exams 10/01/20 14:45 Taken UA W/MICROSCOPIC [URIN] Urgent Lab 10/01/20 14:45 Ordered Lactated Ringers [Ringers, Lactated] 1,000 ml Med 10/01/20 14:45 Active IV ASDIRECTED Sodium Chloride 0.9% [Saline Flush] Med 10/01/20 14:45 Active 10 ml FLUSH ASDIRECTED PRN Peripheral IV Insertion Adult [OM.PC] Urgent Oth 10/01/20 14:45 Ordered Resuscitation Status Routine Resus Stat 10/01/20 16:53 Ordered Medication Orders Lactated Ringer's (Ringers, Lactated) 1,000 mls @ 999 mls/hr IV ASDIRECTED YANDEL Last Admin: 10/01/20 15:04 Dose: 999 mls/hr Documented by: EVERT Sodium Chloride (Sodium Chloride 0.9% 10 Ml Syringe) 10 ml FLUSH ASDIRECTED PRN PRN Reason: Keep Vein Open Last Admin: 10/01/20 15:04 Dose: 10 ml Documented by: EVERT Assessment/Plan Comment:: ASSESSMENT AND PLAN ENTERITIS-with ongoing symptoms of nausea, vomiting, and diarrhea for the past 14 days. I suspect that this is secondary to current therapy with Trulicity which was started approximately 1 month ago. Possible but less likely would be infectious etiology, viral versus bacterial. -IV fluids for hydration -Nausea medication as needed -Consistent carbohydrate diet as tolerated TYPE 2 DIABETES MELLITUS -Hold glipizide, Metformin, and Trulicity -4 times daily glucometers -Low-dose sliding scale Humalog DEHYDRATION -IV fluids as above CHRONIC KIDNEY DISEASE STAGE III-worsening renal function over the last 2 days likely secondary to dehydration and intravascular volume depletion -IV fluids as above -Closely monitor renal function and urine output MAINTENANCE ISSUES -DVT prophylaxis; Lovenox 40 mg subcu daily -GI prophylaxis; Protonix 40 mg IV every 12 hours -Warner catheter; not indicated -Nutrition; consistent carbohydrate diet -Nicotine dependence; not required CODE STATUS-FULL CODE ADMISSION STATUS-this patient will be admitted to observation status, expect no more than a one night hospital stay for evaluation and management of problems as outlined above. DISPOSITION-anticipate discharge to home after the hospital stay. PRIMARY CARE PROVIDER-Dr. Sutherland - Mortality Measure Prognosis:: Good
[2020-10-01] MEDS ORDERED: Glucose Gel 15 GM in 37.5 GM Tube PO PRN (17:28)
[2020-10-01] MEDS ORDERED: Ondansetron 4 MG/2 ML SDV IV PRN (17:28)
[2020-10-01] MEDS ORDERED: Acetaminophen 325 MG Tab PO PRN (17:28)
[2020-10-01] MEDS ORDERED: Albuterol 8 GM Inhaler INH PRN (17:28)
[2020-10-01] MEDS ORDERED: 50% Dextrose in Water 50 ML Syringe IV PRN (17:28)
[2020-10-01] MEDS ORDERED: Albuterol 0.083% 2.5 MG/3 ML Neb Soln NEB PRN (17:28)
[2020-10-01] MEDS: Sodium Chloride 0.9% 1,000 ML IV SCH (17:36)
[2020-10-01] MEDS: Insulin Lispro 100 Unit/ML 3 ML KwikPen SUBCUT SCH ×2 (18:24→21:23)
[2020-10-01] MEDS: Pantoprazole 40 MG Vial IVPUSH SCH (18:32)
[2020-10-01] MEDS ORDERED: CARVEDILOL 25 MG PO SCH (20:30)
[2020-10-01] MEDS ORDERED: atorvaSTATin 10 MG Tab PO SCH (21:00)
[2020-10-01] MEDS ORDERED: DONEPEZIL 10 MG PO SCH (21:00)
[2020-10-01] MEDS ORDERED: SIMVASTATIN 20 MG PO SCH (21:00)
[2020-10-01] MEDS: Enoxaparin 40 MG/0.4 ML Syringe SUBCUT SCH (21:28)
[2020-10-02] MEDS: Sodium Chloride 0.9% 1,000 ML IV SCH ×3 (03:33→20:56)
[2020-10-02] MEDS: Pantoprazole 40 MG Vial IVPUSH SCH ×2 (04:49→17:17)
[2020-10-02] MEDS: Insulin Lispro 100 Unit/ML 3 ML KwikPen SUBCUT SCH ×4 (07:31→21:12)
[2020-10-02] MEDS ORDERED: CARVEDILOL 25 MG PO SCH (08:00)
[2020-10-02] MEDS ORDERED: Potassium Chloride 20 MEQ Tab.ER PO ONE (08:30)
[2020-10-02] MEDS: Aspirin 81 MG Tab.EC PO SCH (08:53)
[2020-10-02] MEDS ORDERED: LISINOPRIL 40MG TAB (PTOM) PO SCH (09:00)
[2020-10-02] MEDS ORDERED: Lisinopril 20 MG Tab PO SCH (09:00)
[2020-10-02] MEDS ORDERED: amLODIPine 5 MG Tab (PTOM) PO SCH (09:00)
[2020-10-02] MEDS ORDERED: Magnesium Sulfate/Water 2 GM in Premix Bag 1 BAG IV SCH (09:30)
[2020-10-02] MEDS: Magnesium Oxide 400 MG Tab PO SCH ×2 (09:36→21:22)
--- NOTE | 2020-10-02 12:54 | PCM.PN ---
- General Info Date of Service: 10/02/20 Subjective Update: Mr. Burgos has remained fairly stable since admission yesterday. Vital signs have been good and he has remained afebrile with no evidence of underlying infection. Nausea has improved but not totally resolved. He has had more regular stools but they seem to be more pasty than watery at this time. Overall he is feeling somewhat improved and is feeling that his appetite is better. He is unable to provide meaningful history concerning recent symptoms or review of systems because of his dementia. - Patient Data Vitals - Most Recent: Last Vital Signs Temp 96.3 F L 10/02/20 11:07 Pulse 76 10/02/20 11:07 Resp 16 10/02/20 11:07 BP 90/51 L 10/02/20 11:07 Pulse Ox 94 L 10/02/20 11:07 Weight - Most Recent: 170 lb 9.6 oz I&O - Last 24 Hours: Intake & Output 10/01/20 10/02/20 10/02/20 22:59 06:59 14:59 Intake Total 1365 500 Balance 1365 500 Lab Results Last 24 Hours: Laboratory Results - last 24 hr 10/01/20 10/01/20 10/01/20 Range/Units 15:12 15:12 15:12 WBC 10.2 (4.5-11.0) K/uL RBC 5.57 (4.30-5.90) M/uL Hgb 16.2 H (12.0-15.0) g/dL Hct 47.1 (40.0-54.0) % MCV 85 (80-98) fL MCH 29 (27-31) pg MCHC 34 (32-36) % Plt Count 319 (150-400) K/uL Neut % (Auto) 62.4 (36-66) % Lymph % (Auto) 16.4 L (24-44) % [place] % (Auto) 12.0 H (2-6) % Eos % (Auto) 8.6 H (2-4) % Baso % (Auto) 0.6 (0-1) % Add Manual Diff Neutrophils % (Manual) (36-66) % Band Neutrophils % (5-11) % Lymphocytes % (Manual) (24-44) % Monocytes % (Manual) (2-6) % Eosinophils % (Manual) (2-4) % Sodium 139 L (140-148) mmol/L Potassium 3.9 (3.6-5.2) mmol/L Chloride 101 (100-108) mmol/L Carbon Dioxide 24 (21-32) mmol/L Anion Gap 17.9 H (5.0-14.0) mmol/L BUN 15 (7-18) mg/dL Creatinine 1.6 H (0.8-1.3) mg/dL Est Cr Clr Drug Dosing 31.57 mL/min Estimated GFR (MDRD) 41 L (>60) Glucose 173 H (74-106) mg/dL POC Glucose (74-106) mg/dL Lactic Acid 1.3 (0.4-2.0) mmol/L Calcium 8.3 L (8.5-10.1) mg/dL Magnesium (1.8-2.4) mg/dL Total Bilirubin 0.3 (0.2-1.0) mg/dL AST 9 L (15-37) U/L ALT 14 (12-78) U/L Alkaline Phosphatase 65 (46-116) U/L Troponin I < 0.017 (0.000-0.056) ng/mL Total Protein 6.7 (6.4-8.2) g/dL Albumin 2.9 L (3.4-5.0) g/dL Globulin 3.8 H (2.3-3.5) g/dL Albumin/Globulin Ratio 0.8 L (1.2-2.2) 10/01/20 10/01/20 10/02/20 Range/Units 17:42 21:17 04:10 WBC 10.7 (4.5-11.0) K/uL RBC 5.57 (4.30-5.90) M/uL Hgb 16.1 H (12.0-15.0) g/dL Hct 47.2 (40.0-54.0) % MCV 85 (80-98) fL MCH 29 (27-31) pg MCHC 34 (32-36) % Plt Count 316 (150-400) K/uL Neut % (Auto) (36-66) % Lymph % (Auto) (24-44) % [place] % (Auto) (2-6) % Eos % (Auto) (2-4) % Baso % (Auto) (0-1) % Add Manual Diff Yes Neutrophils % (Manual) 43 (36-66) % Band Neutrophils % 16 H (5-11) % Lymphocytes % (Manual) 25 (24-44) % Monocytes % (Manual) 11 H (2-6) % Eosinophils % (Manual) 5 H (2-4) % Sodium (140-148) mmol/L Potassium (3.6-5.2) mmol/L Chloride (100-108) mmol/L Carbon Dioxide (21-32) mmol/L Anion Gap (5.0-14.0) mmol/L BUN (7-18) mg/dL Creatinine (0.8-1.3) mg/dL Est Cr Clr Drug Dosing mL/min Estimated GFR (MDRD) (>60) Glucose (74-106) mg/dL POC Glucose 150 H 131 H (74-106) mg/dL Lactic Acid (0.4-2.0) mmol/L Calcium (8.5-10.1) mg/dL Magnesium (1.8-2.4) mg/dL Total Bilirubin (0.2-1.0) mg/dL AST (15-37) U/L ALT (12-78) U/L Alkaline Phosphatase (46-116) U/L Troponin I (0.000-0.056) ng/mL Total Protein (6.4-8.2) g/dL Albumin (3.4-5.0) g/dL Globulin (2.3-3.5) g/dL Albumin/Globulin Ratio (1.2-2.2) 10/02/20 10/02/20 10/02/20 Range/Units 04:10 07:22 11:26 WBC (4.5-11.0) K/uL RBC (4.30-5.90) M/uL Hgb (12.0-15.0) g/dL Hct (40.0-54.0) % MCV (80-98) fL MCH (27-31) pg MCHC (32-36) % Plt Count (150-400) K/uL Neut % (Auto) (36-66) % Lymph % (Auto) (24-44) % [place] % (Auto) (2-6) % Eos % (Auto) (2-4) % Baso % (Auto) (0-1) % Add Manual Diff Neutrophils % (Manual) (36-66) % Band Neutrophils % (5-11) % Lymphocytes % (Manual) (24-44) % Monocytes % (Manual) (2-6) % Eosinophils % (Manual) (2-4) % Sodium 140 (140-148) mmol/L Potassium 3.6 (3.6-5.2) mmol/L Chloride 104 (100-108) mmol/L Carbon Dioxide 23 (21-32) mmol/L Anion Gap 12.8 (5.0-14.0) mmol/L BUN 14 (7-18) mg/dL Creatinine 1.4 H (0.8-1.3) mg/dL Est Cr Clr Drug Dosing 36.08 mL/min Estimated GFR (MDRD) 48 L (>60) Glucose 140 H (74-106) mg/dL POC Glucose 121 H 133 H (74-106) mg/dL Lactic Acid (0.4-2.0) mmol/L Calcium 7.7 L (8.5-10.1) mg/dL Magnesium 1.7 L (1.8-2.4) mg/dL Total Bilirubin (0.2-1.0) mg/dL AST (15-37) U/L ALT (12-78) U/L Alkaline Phosphatase (46-116) U/L Troponin I (0.000-0.056) ng/mL Total Protein (6.4-8.2) g/dL Albumin (3.4-5.0) g/dL Globulin (2.3-3.5) g/dL Albumin/Globulin Ratio (1.2-2.2) Med Orders - Current: Current Medications Acetaminophen (Acetaminophen 325 Mg Tab) 650 mg PO Q4H PRN PRN Reason: Pain (Mild 1-3)/fever Albuterol (Albuterol 8 Gm Inhaler) 0 gm INH Q6H PRN PRN Reason: Wheezing Albuterol (Albuterol 0.083% 2.5 Mg/3 Ml Neb Soln) 2.5 mg NEB Q4H PRN PRN Reason: Shortness Of Breath/wheezing Amlodipine Besylate (Amlodipine 5 Mg Tab) 5 mg PO DAILY [facility] Aspirin (Aspirin 81 Mg Tab.Ec) 81 mg PO DAILY [facility] Last Admin: 10/02/20 08:53 Dose: 81 mg Documented by: Carvedilol (Carvedilol 12.5 Mg Tab) 25 mg PO BIDMEALS [facility] Dextrose (Glucose Gel 15 Gm In 37.5 Gm Tube) 15 gm PO ONETIME PRN PRN Reason: Hypoglycemia Dextrose/Water (50% Dextrose In Water 50 Ml Syringe) 50 ml IV ONETIME PRN PRN Reason: Hypoglycemia Donepezil HCl (Donepezil 10 Mg Tab) 10 mg PO BEDTIME [facility] Enoxaparin Sodium (Enoxaparin 40 Mg/0.4 Ml Syringe) 40 mg SUBCUT BEDTIME [facility] Last Admin: 10/01/20 21:28 Dose: 40 mg Documented by: Sodium Chloride (Normal Saline) 1,000 mls @ 75 mls/hr IV ASDIRECTED [facility] Insulin Human Lispro (Insulin Lispro 100 Unit/Ml 3 Ml Kwikpen) 0 unit SUBCUT QIDACANDBED [facility]; Protocol Last Admin: 10/02/20 11:27 Dose: Not Given Documented by: Lisinopril (Lisinopril 20 Mg Tab) 40 mg PO DAILY [facility] Magnesium Oxide (Magnesium Oxide 400 Mg Tab) 400 mg PO BID [facility] Last Admin: 10/02/20 09:36 Dose: 400 mg Documented by: Ondansetron HCl (Ondansetron 4 Mg/2 Ml Sdv) 4 mg IV Q4H PRN PRN Reason: Nausea/Vomiting Pantoprazole Sodium (Pantoprazole 40 Mg Vial) 40 mg IVPUSH Q12H [facility] Last Admin: 10/02/20 04:49 Dose: 40 mg Documented by: Simvastatin 20mg Tab ((Ptom)) 1 each PO BEDTIME [facility] Sodium Chloride (Sodium Chloride 0.9% 10 Ml Syringe) 10 ml FLUSH ASDIRECTED PRN PRN Reason: Keep Vein Open Discontinued Medications Amlodipine Besylate (Amlodipine 5 Mg Tab (Ptom)) 5 mg PO DAILY [facility] Last Admin: 10/02/20 08:52 Dose: 5 mg Documented by: Atorvastatin Calcium (Atorvastatin 10 Mg Tab) 10 mg PO BEDTIME [facility] Donepezil HCl (Donepezil 10 Mg Tab Own Med ) 10 mg PO BEDTIME [facility] Last Admin: 10/01/20 21:24 Dose: 10 mg Documented by: Lactated Ringer's (Ringers, Lactated) 1,000 mls @ 999 mls/hr IV ASDIRECTED [facility] Last Admin: 10/01/20 15:04 Dose: 999 mls/hr Documented by: Sodium Chloride (Normal Saline) 1,000 mls @ 125 mls/hr IV ASDIRECTED [facility] Last Admin: 10/02/20 09:40 Dose: 125 mls/hr Documented by: Magnesium Sulfate 2 gm/ Premix 50 mls @ 25 mls/hr IV Q6H [facility] Stop: 10/02/20 11:29 Last Admin: 10/02/20 09:36 Dose: 25 mls/hr Documented by: Carvedilol 25mg Tabs ( Own Med ) 25 each PO BIDMEALS [facility] Last Admin: 10/01/20 21:25 Dose: 25 each Documented by: Simvastatin 20mg Tab ( Own Med ) 10 each PO BEDTIME [facility] Last Admin: 10/01/20 21:25 Dose: 10 each Documented by: Carvedilol 25mg Tabs ( Own Med ) 0 each PO BIDMEALS [facility] Last Admin: 10/02/20 08:53 Dose: 1 each Documented by: Ondansetron HCl (Ondansetron 4 Mg/2 Ml Sdv) 4 mg IVPUSH ONETIME ONE Stop: 10/01/20 14:48 Last Admin: 10/01/20 15:04 Dose: 4 mg Documented by: Lisinopril 40mg Tab ((Ptom)) 1 each PO DAILY [facility] Last Admin: 10/02/20 08:53 Dose: 1 each Documented by: Potassium Chloride (Potassium Chloride 20 Meq Tab.Er) 40 meq PO ONETIME ONE Stop: 10/02/20 08:31 Last Admin: 10/02/20 08:55 Dose: 40 meq Documented by: Sodium Chloride (Sodium Chloride 0.9% 10 Ml Syringe) 10 ml FLUSH ASDIRECTED PRN PRN Reason: Keep Vein Open Last Admin: 10/01/20 15:04 Dose: 10 ml Documented by: - Exam General: Alert, Cooperative, Mild Distress. No: Oriented Lungs: Clear to Auscultation, Normal Respiratory Effort Cardiovascular: Regular Rate, Regular Rhythm, No Murmurs GI/Abdominal Exam: Soft, Non-Tender, No Organomegaly, No Distention Extremities: Non-Tender, No Pedal Edema - Patient Data Lab Results Last 24 hrs: Laboratory Results - last 24 hr 10/01/20 10/01/20 10/01/20 Range/Units 15:12 15:12 15:12 WBC 10.2 (4.5-11.0) K/uL RBC 5.57 (4.30-5.90) M/uL Hgb 16.2 H (12.0-15.0) g/dL Hct 47.1 (40.0-54.0) % MCV 85 (80-98) fL MCH 29 (27-31) pg MCHC 34 (32-36) % Plt Count 319 (150-400) K/uL Neut % (Auto) 62.4 (36-66) % Lymph % (Auto) 16.4 L (24-44) % [place] % (Auto) 12.0 H (2-6) % Eos % (Auto) 8.6 H (2-4) % Baso % (Auto) 0.6 (0-1) % Add Manual Diff Neutrophils % (Manual) (36-66) % Band Neutrophils % (5-11) % Lymphocytes % (Manual) (24-44) % Monocytes % (Manual) (2-6) % Eosinophils % (Manual) (2-4) % Sodium 139 L (140-148) mmol/L Potassium 3.9 (3.6-5.2) mmol/L Chloride 101 (100-108) mmol/L Carbon Dioxide 24 (21-32) mmol/L Anion Gap 17.9 H (5.0-14.0) mmol/L BUN 15 (7-18) mg/dL Creatinine 1.6 H (0.8-1.3) mg/dL Est Cr Clr Drug Dosing 31.57 mL/min Estimated GFR (MDRD) 41 L (>60) Glucose 173 H (74-106) mg/dL POC Glucose (74-106) mg/dL Lactic Acid 1.3 (0.4-2.0) mmol/L Calcium 8.3 L (8.5-10.1) mg/dL Magnesium (1.8-2.4) mg/dL Total Bilirubin 0.3 (0.2-1.0) mg/dL AST 9 L (15-37) U/L ALT 14 (12-78) U/L Alkaline Phosphatase 65 (46-116) U/L Troponin I < 0.017 (0.000-0.056) ng/mL Total Protein 6.7 (6.4-8.2) g/dL Albumin 2.9 L (3.4-5.0) g/dL Globulin 3.8 H (2.3-3.5) g/dL Albumin/Globulin Ratio 0.8 L (1.2-2.2) 10/01/20 10/01/20 10/02/20 Range/Units 17:42 21:17 04:10 WBC 10.7 (4.5-11.0) K/uL RBC 5.57 (4.30-5.90) M/uL Hgb 16.1 H (12.0-15.0) g/dL Hct 47.2 (40.0-54.0) % MCV 85 (80-98) fL MCH 29 (27-31) pg MCHC 34 (32-36) % Plt Count 316 (150-400) K/uL Neut % (Auto) (36-66) % Lymph % (Auto) (24-44) % [place] % (Auto) (2-6) % Eos % (Auto) (2-4) % Baso % (Auto) (0-1) % Add Manual Diff Yes Neutrophils % (Manual) 43 (36-66) % Band Neutrophils % 16 H (5-11) % Lymphocytes % (Manual) 25 (24-44) % Monocytes % (Manual) 11 H (2-6) % Eosinophils % (Manual) 5 H (2-4) % Sodium (140-148) mmol/L Potassium (3.6-5.2) mmol/L Chloride (100-108) mmol/L Carbon Dioxide (21-32) mmol/L Anion Gap (5.0-14.0) mmol/L BUN (7-18) mg/dL Creatinine (0.8-1.3) mg/dL Est Cr Clr Drug Dosing mL/min Estimated GFR (MDRD) (>60) Glucose (74-106) mg/dL POC Glucose 150 H 131 H (74-106) mg/dL Lactic Acid (0.4-2.0) mmol/L Calcium (8.5-10.1) mg/dL Magnesium (1.8-2.4) mg/dL Total Bilirubin (0.2-1.0) mg/dL AST (15-37) U/L ALT (12-78) U/L Alkaline Phosphatase (46-116) U/L Troponin I (0.000-0.056) ng/mL Total Protein (6.4-8.2) g/dL Albumin (3.4-5.0) g/dL Globulin (2.3-3.5) g/dL Albumin/Globulin Ratio (1.2-2.2) 10/02/20 10/02/20 10/02/20 Range/Units 04:10 07:22 11:26 WBC (4.5-11.0) K/uL RBC (4.30-5.90) M/uL Hgb (12.0-15.0) g/dL Hct (40.0-54.0) % MCV (80-98) fL MCH (27-31) pg MCHC (32-36) % Plt Count (150-400) K/uL Neut % (Auto) (36-66) % Lymph % (Auto) (24-44) % [place] % (Auto) (2-6) % Eos % (Auto) (2-4) % Baso % (Auto) (0-1) % Add Manual Diff Neutrophils % (Manual) (36-66) % Band Neutrophils % (5-11) % Lymphocytes % (Manual) (24-44) % Monocytes % (Manual) (2-6) % Eosinophils % (Manual) (2-4) % Sodium 140 (140-148) mmol/L Potassium 3.6 (3.6-5.2) mmol/L Chloride 104 (100-108) mmol/L Carbon Dioxide 23 (21-32) mmol/L Anion Gap 12.8 (5.0-14.0) mmol/L BUN 14 (7-18) mg/dL Creatinine 1.4 H (0.8-1.3) mg/dL Est Cr Clr Drug Dosing 36.08 mL/min Estimated GFR (MDRD) 48 L (>60) Glucose 140 H (74-106) mg/dL POC Glucose 121 H 133 H (74-106) mg/dL Lactic Acid (0.4-2.0) mmol/L Calcium 7.7 L (8.5-10.1) mg/dL Magnesium 1.7 L (1.8-2.4) mg/dL Total Bilirubin (0.2-1.0) mg/dL AST (15-37) U/L ALT (12-78) U/L Alkaline Phosphatase (46-116) U/L Troponin I (0.000-0.056) ng/mL Total Protein (6.4-8.2) g/dL Albumin (3.4-5.0) g/dL Globulin (2.3-3.5) g/dL Albumin/Globulin Ratio (1.2-2.2) Result Diagrams: 10/02/20 04:10 10/02/20 04:10 Sepsis Event Note - Evaluation Sepsis Screening Result: No Definite Risk - Focused Exam Vital Signs: Vital Signs Temp Temp Pulse Resp BP BP Pulse Ox 10/02/20 11:07 96.3 F L 76 16 90/51 L 94 L 10/02/20 08:52 110/64 10/02/20 07:18 97.0 F 69 16 110/64 92 L 10/02/20 03:00 97.5 F 82 16 98/66 96 - Problem List Review Problem List Initiated/Reviewed/Updated: Yes - My Orders Last 24 Hours: My Active Orders 10/01/20 Lunch Consistent Carbohydrate Diet [DIET] 10/01/20 16:53 Resuscitation Status Routine 10/01/20 17:28 Acetaminophen [TylenoL] 650 mg PO Q4H PRN Albuterol [Proventil Neb Soln] 2.5 mg NEB Q4H PRN Albuterol [Ventolin HFA] 0 gm INH Q6H PRN Dextrose 50% in Water 50 ml IV ONETIME PRN Dextrose [Glutose 15] 15 gm PO ONETIME PRN Insulin Lispro [HumaLOG] See Protocol SUBCUT QIDACANDBED Ondansetron [Zofran] 4 mg IV Q4H PRN Sodium Chloride 0.9% [Saline Flush] 10 ml FLUSH ASDIRECTED PRN 10/01/20 17:28 Ambulate [RC] QID Communication Order [RC] STAT Diabetes Education [RC] Click to Edit Height and Weight [RC] 0500 Intake and Output [RC] QSHIFT Notify Provider Vital Signs [RC] ASDIRECTED Notify Provider [RC] PRN Oxygen Therapy [RC] PRN Peripheral IV Care [RC] . DIRECTED RT Aerosol Therapy [RC] ASDIRECTED RT Post Treatment Assessment [RC] Click to Edit Up With Assistance [RC] ASDIRECTED Up to Chair [RC] QID VTE/DVT Education [RC] Per Unit Routine Vital Signs [RC] Q4H Peripheral IV Insertion Adult [OM.PC] Routine 10/01/20 17:45 Pantoprazole [ProTONIX IV] 40 mg IVPUSH Q12H 10/01/20 21:00 Enoxaparin [Lovenox] 40 mg SUBCUT BEDTIME 10/02/20 09:00 Aspirin [Halfprin] 81 mg PO DAILY Magnesium Oxide 400 mg PO BID 10/02/20 10:53 Patient Status [ADT] Routine 10/02/20 13:00 Sodium Chloride 0.9% @ 75 MLS/HR(1000ml) Sodium Chloride 0.9% [Normal Saline] 1,000 ml IV ASDIRECTED 10/02/20 16:30 GLUCOSE POC LAB TO COLLECT JPM [POC] QIDACANDBED 10/02/20 17:00 carvediloL [Coreg] 25 mg PO BIDMEALS 10/02/20 21:00 GLUCOSE POC LAB TO COLLECT JPM [POC] QIDACANDBED Donepezil [Aricept] 10 mg PO BEDTIME Patient's Own Medication [Ptom] 1 each PO BEDTIME 10/03/20 05:00 BASIC METABOLIC PANEL,BMP [CHEM] Timed MAGNESIUM [CHEM] Timed 10/03/20 07:30 GLUCOSE POC LAB TO COLLECT JPM [POC] QIDACANDBED 10/03/20 09:00 amLODIPine [Norvasc] 5 mg PO DAILY lisinopriL [Prinivil] 40 mg PO DAILY 10/03/20 11:30 GLUCOSE POC LAB TO COLLECT JPM [POC] QIDACANDBED 10/03/20 16:30 GLUCOSE POC LAB TO COLLECT JPM [POC] QIDACANDBED 10/03/20 21:00 GLUCOSE POC LAB TO COLLECT JPM [POC] QIDACANDBED 10/04/20 07:30 GLUCOSE POC LAB TO COLLECT JPM [POC] QIDACANDBED 10/04/20 11:30 GLUCOSE POC LAB TO COLLECT JPM [POC] QIDACANDBED 10/04/20 16:30 GLUCOSE POC LAB TO COLLECT JPM [POC] QIDACANDBED 10/04/20 21:00 GLUCOSE POC LAB TO COLLECT JPM [POC] QIDACANDBED 10/05/20 07:30 GLUCOSE POC LAB TO COLLECT JPM [POC] QIDACANDBED 10/05/20 11:30 GLUCOSE POC LAB TO COLLECT JPM [POC] QIDACANDBED 10/05/20 16:30 GLUCOSE POC LAB TO COLLECT JPM [POC] QIDACANDBED 10/05/20 21:00 GLUCOSE POC LAB TO COLLECT JPM [POC] QIDACANDBED 10/06/20 07:30 GLUCOSE POC LAB TO COLLECT JPM [POC] QIDACANDBED 10/06/20 11:30 GLUCOSE POC LAB TO COLLECT JPM [POC] QIDACANDBED 10/06/20 16:30 GLUCOSE POC LAB TO COLLECT JPM [POC] QIDACANDBED - Plan Plan:: ASSESSMENT AND PLAN ENTERITIS-with ongoing symptoms of nausea, vomiting, and diarrhea for the past 14 days. I suspect that this is secondary to current therapy with Trulicity which was started approximately 1 month ago. Possible but less likely would be infectious etiology, viral versus bacterial. Modest improvement since admission -IV fluids for hydration, decrease rate to 75 cc/h -Hold Trulicity -Nausea medication as needed -Consistent carbohydrate diet as tolerated TYPE 2 DIABETES MELLITUS -Hold glipizide, Metformin, and Trulicity -4 times daily glucometers -Low-dose sliding scale Humalog DEHYDRATION -IV fluids as above CHRONIC KIDNEY DISEASE STAGE III-renal function improved with hydration -IV fluids as above -Closely monitor renal function and urine output MAINTENANCE ISSUES -DVT prophylaxis; Lovenox 40 mg subcu daily -GI prophylaxis; Protonix 40 mg IV every 12 hours -Warner catheter; not indicated -Nutrition; consistent carbohydrate diet -Nicotine dependence; not required CODE STATUS-FULL CODE ADMISSION STATUS-this patient will be admitted to observation status, expect no more than a one night hospital stay for evaluation and management of problems as outlined above. DISPOSITION-anticipate discharge to home after the hospital stay. PRIMARY CARE PROVIDER-Dr. Sutherland
[2020-10-02] MEDS: Carvedilol 12.5 MG Tab PO SCH (16:28)
[2020-10-02] MEDS ORDERED: SIMVASTATIN 20 MG PO SCH (21:00)
[2020-10-02] MEDS: Donepezil 10 MG Tab PO SCH (21:22)
[2020-10-02] MEDS: Enoxaparin 40 MG/0.4 ML Syringe SUBCUT SCH (21:22)
[2020-10-02] MEDS: SIMVASTATIN 20MG TAB (PTOM) PO SCH (21:25)
[2020-10-03] MEDS: Pantoprazole 40 MG Vial IVPUSH SCH (05:47)
[2020-10-03] MEDS: Insulin Lispro 100 Unit/ML 3 ML KwikPen SUBCUT SCH ×4 (07:50→22:27)
[2020-10-03] MEDS: Magnesium Oxide 400 MG Tab PO SCH ×2 (08:46→20:25)
[2020-10-03] MEDS: Aspirin 81 MG Tab.EC PO SCH (08:47)
[2020-10-03] MEDS: Lisinopril 20 MG Tab PO SCH (08:47)
[2020-10-03] MEDS: amLODIPine 5 MG Tab PO SCH (08:47)
[2020-10-03] MEDS: Carvedilol 12.5 MG Tab PO SCH ×2 (08:47→16:57)
[2020-10-03] MEDS: Sodium Chloride 0.9% 1,000 ML IV SCH (08:55)
--- NOTE | 2020-10-03 09:36 | CR ---
Abdomen 1V Upright CLINICAL HISTORY: Abdominal distention FINDINGS: No free air is identified. Small intestinal gas pattern is nonacute. There is gas seen throughout the colon without significant distention. IMPRESSION: Nonacute intestinal gas pattern
--- NOTE | 2020-10-03 10:46 | PCM.PN ---
- General Info Date of Service: 10/03/20 Subjective Update: Patient did not have any acute events overnight. He remains pleasantly confused and history is difficult to gather because of poor recall. His is here and has been keeping track of things. Additional history was gathered from nursing staff. He is able to tell me that he currently feels well. He does not have any abdominal pain. He does not remember his last bowel movement but multiple loose bowel movements have been charted overnight. His reports that he just had a loose bowel movement shortly before our arrival. He has not had any fevers. His appetite has not been good and intake has been poor. Functional Status: Reports: Pain Controlled - Review of Systems General: Denies: Fever Gastrointestinal: Reports: Diarrhea. Denies: Abdominal Pain, Nausea - Patient Data Vitals - Most Recent: Last Vital Signs Temp 36.7 C 10/03/20 07:00 Pulse 73 10/03/20 08:47 Resp 18 10/03/20 07:00 BP 108/72 10/03/20 08:47 Pulse Ox 98 10/03/20 07:00 Weight - Most Recent: 77.383 kg I&O - Last 24 Hours: Intake & Output 10/02/20 10/03/20 10/03/20 22:59 06:59 14:59 Intake Total 2250 2175 Balance 2250 2175 Lab Results Last 24 Hours: Laboratory Results - last 24 hr 10/02/20 10/02/20 10/02/20 Range/Units 11:26 17:08 21:02 Sodium (140-148) mmol/L Potassium (3.6-5.2) mmol/L Chloride (100-108) mmol/L Carbon Dioxide (21-32) mmol/L Anion Gap (5.0-14.0) mmol/L BUN (7-18) mg/dL Creatinine (0.8-1.3) mg/dL Est Cr Clr Drug Dosing mL/min Estimated GFR (MDRD) (>60) Glucose (74-106) mg/dL POC Glucose 133 H 125 H 122 H (74-106) mg/dL Calcium (8.5-10.1) mg/dL Magnesium (1.8-2.4) mg/dL 10/03/20 10/03/20 Range/Units 04:15 07:28 Sodium 140 (140-148) mmol/L Potassium 3.9 (3.6-5.2) mmol/L Chloride 109 H (100-108) mmol/L Carbon Dioxide 21 (21-32) mmol/L Anion Gap 13.9 (5.0-14.0) mmol/L BUN 14 (7-18) mg/dL Creatinine 1.3 (0.8-1.3) mg/dL Est Cr Clr Drug Dosing 38.85 mL/min Estimated GFR (MDRD) 53 L (>60) Glucose 115 H (74-106) mg/dL POC Glucose 100 (74-106) mg/dL Calcium 7.8 L (8.5-10.1) mg/dL Magnesium 2.4 (1.8-2.4) mg/dL Med Orders - Current: Current Medications Acetaminophen (Acetaminophen 325 Mg Tab) 650 mg PO Q4H PRN PRN Reason: Pain (Mild 1-3)/fever Albuterol (Albuterol 8 Gm Inhaler) 0 gm INH Q6H PRN PRN Reason: Wheezing Albuterol (Albuterol 0.083% 2.5 Mg/3 Ml Neb Soln) 2.5 mg NEB Q4H PRN PRN Reason: Shortness Of Breath/wheezing Amlodipine Besylate (Amlodipine 5 Mg Tab) 5 mg PO DAILY [facility] Last Admin: 10/03/20 08:47 Dose: 5 mg Documented by: Aspirin (Aspirin 81 Mg Tab.Ec) 81 mg PO DAILY [facility] Last Admin: 10/03/20 08:47 Dose: 81 mg Documented by: Carvedilol (Carvedilol 12.5 Mg Tab) 25 mg PO BIDMEALS [facility] Last Admin: 10/03/20 08:47 Dose: 25 mg Documented by: Dextrose (Glucose Gel 15 Gm In 37.5 Gm Tube) 15 gm PO ONETIME PRN PRN Reason: Hypoglycemia Dextrose/Water (50% Dextrose In Water 50 Ml Syringe) 50 ml IV ONETIME PRN PRN Reason: Hypoglycemia Donepezil HCl (Donepezil 10 Mg Tab) 10 mg PO BEDTIME [facility] Last Admin: 10/02/20 21:22 Dose: 10 mg Documented by: Enoxaparin Sodium (Enoxaparin 40 Mg/0.4 Ml Syringe) 40 mg SUBCUT BEDTIME [facility] Last Admin: 10/02/20 21:22 Dose: 40 mg Documented by: Sodium Chloride (Normal Saline) 1,000 mls @ 75 mls/hr IV ASDIRECTED [facility] Last Admin: 10/03/20 08:55 Dose: 75 mls/hr Documented by: Insulin Human Lispro (Insulin Lispro 100 Unit/Ml 3 Ml Kwikpen) 0 unit SUBCUT QIDACANDBED [facility]; Protocol Last Admin: 10/03/20 07:50 Dose: Not Given Documented by: Lisinopril (Lisinopril 20 Mg Tab) 40 mg PO DAILY [facility] Last Admin: 10/03/20 08:47 Dose: 40 mg Documented by: Magnesium Oxide (Magnesium Oxide 400 Mg Tab) 400 mg PO BID [facility] Last Admin: 10/03/20 08:46 Dose: 400 mg Documented by: Ondansetron HCl (Ondansetron 4 Mg/2 Ml Sdv) 4 mg IV Q4H PRN PRN Reason: Nausea/Vomiting Pantoprazole Sodium (Pantoprazole 40 Mg Tab.Cr) 40 mg PO BIDAC [facility] Simvastatin 20mg Tab ((Ptom)) 1 each PO BEDTIME [facility] Last Admin: 10/02/20 21:25 Dose: Not Given Documented by: Sodium Chloride (Sodium Chloride 0.9% 10 Ml Syringe) 10 ml FLUSH ASDIRECTED PRN PRN Reason: Keep Vein Open Discontinued Medications Amlodipine Besylate (Amlodipine 5 Mg Tab (Ptom)) 5 mg PO DAILY [facility] Last Admin: 10/02/20 08:52 Dose: 5 mg Documented by: Atorvastatin Calcium (Atorvastatin 10 Mg Tab) 10 mg PO BEDTIME [facility] Donepezil HCl (Donepezil 10 Mg Tab Own Med ) 10 mg PO BEDTIME [facility] Last Admin: 10/01/20 21:24 Dose: 10 mg Documented by: Lactated Ringer's (Ringers, Lactated) 1,000 mls @ 999 mls/hr IV ASDIRECTED [facility] Last Admin: 10/01/20 15:04 Dose: 999 mls/hr Documented by: Sodium Chloride (Normal Saline) 1,000 mls @ 125 mls/hr IV ASDIRECTED [facility] Last Admin: 10/02/20 09:40 Dose: 125 mls/hr Documented by: Magnesium Sulfate 2 gm/ Premix 50 mls @ 25 mls/hr IV Q6H [facility] Stop: 10/02/20 11:29 Last Admin: 10/02/20 09:36 Dose: 25 mls/hr Documented by: Carvedilol 25mg Tabs ( Own Med ) 25 each PO BIDMEALS [facility] Last Admin: 10/01/20 21:25 Dose: 25 each Documented by: Simvastatin 20mg Tab ( Own Med ) 10 each PO BEDTIME [facility] Last Admin: 10/01/20 21:25 Dose: 10 each Documented by: Carvedilol 25mg Tabs ( Own Med ) 0 each PO BIDMEALS [facility] Last Admin: 10/02/20 08:53 Dose: 1 each Documented by: Ondansetron HCl (Ondansetron 4 Mg/2 Ml Sdv) 4 mg IVPUSH ONETIME ONE Stop: 10/01/20 14:48 Last Admin: 10/01/20 15:04 Dose: 4 mg Documented by: Pantoprazole Sodium (Pantoprazole 40 Mg Vial) 40 mg IVPUSH Q12H [facility] Last Admin: 10/03/20 05:47 Dose: 40 mg Documented by: Lisinopril 40mg Tab ((Ptom)) 1 each PO DAILY [facility] Last Admin: 10/02/20 08:53 Dose: 1 each Documented by: Potassium Chloride (Potassium Chloride 20 Meq Tab.Er) 40 meq PO ONETIME ONE Stop: 10/02/20 08:31 Last Admin: 10/02/20 08:55 Dose: 40 meq Documented by: Sodium Chloride (Sodium Chloride 0.9% 10 Ml Syringe) 10 ml FLUSH ASDIRECTED PRN PRN Reason: Keep Vein Open Last Admin: 10/01/20 15:04 Dose: 10 ml Documented by: - Exam General: Alert, Cooperative, No Acute Distress Lungs: Normal Respiratory Effort. No: Wheezing GI/Abdominal Exam: Normal Bowel Sounds, Soft, Non-Tender, No Distention Extremities: No Pedal Edema. No: Increased Warmth Skin: Warm, Dry Psy/Mental Status: Alert, Normal Affect - Patient Data Lab Results Last 24 hrs: Laboratory Results - last 24 hr 10/02/20 10/02/20 10/02/20 Range/Units 11:26 17:08 21:02 Sodium (140-148) mmol/L Potassium (3.6-5.2) mmol/L Chloride (100-108) mmol/L Carbon Dioxide (21-32) mmol/L Anion Gap (5.0-14.0) mmol/L BUN (7-18) mg/dL Creatinine (0.8-1.3) mg/dL Est Cr Clr Drug Dosing mL/min Estimated GFR (MDRD) (>60) Glucose (74-106) mg/dL POC Glucose 133 H 125 H 122 H (74-106) mg/dL Calcium (8.5-10.1) mg/dL Magnesium (1.8-2.4) mg/dL 10/03/20 10/03/20 Range/Units 04:15 07:28 Sodium 140 (140-148) mmol/L Potassium 3.9 (3.6-5.2) mmol/L Chloride 109 H (100-108) mmol/L Carbon Dioxide 21 (21-32) mmol/L Anion Gap 13.9 (5.0-14.0) mmol/L BUN 14 (7-18) mg/dL Creatinine 1.3 (0.8-1.3) mg/dL Est Cr Clr Drug Dosing 38.85 mL/min Estimated GFR (MDRD) 53 L (>60) Glucose 115 H (74-106) mg/dL POC Glucose 100 (74-106) mg/dL Calcium 7.8 L (8.5-10.1) mg/dL Magnesium 2.4 (1.8-2.4) mg/dL Result Diagrams: 10/02/20 04:10 10/03/20 04:15 Sepsis Event Note - Evaluation Sepsis Screening Result: No Definite Risk - Focused Exam Vital Signs: Vital Signs Temp Pulse Pulse Resp BP BP Pulse Ox 10/03/20 08:47 73 108/72 10/03/20 07:00 36.7 C 73 18 108/72 98 10/03/20 04:00 36.1 C 68 16 117/76 98 10/02/20 23:00 36.5 C 63 16 111/54 L 97 - Problem List Review Problem List Initiated/Reviewed/Updated: Yes - My Orders Last 24 Hours: My Active Orders 10/04/20 05:00 BASIC METABOLIC PANEL,BMP [CHEM] Timed CBC W/O DIFF,HEMOGRAM [HEME] Timed (1) CRP [C-REACTIVE PROTEIN] [CHEM] Timed - Plan Plan:: ASSESSMENT AND PLAN ENTERITIS-nausea resolved but intake poor. Still having loose stools but no watery diarrhea. No abdominal pain or fever. Still suspect medication side effect. -Continue gentle fluids today, saline lock this evening -Hold Trulicity -Nausea medication as needed -Consistent carbohydrate diet as tolerated -Dietary supplements with poor appetite TYPE 2 DIABETES MELLITUS blood sugar control has been acceptable.- -Hold glipizide, Metformin, and Trulicity -4 times daily glucometers -Low-dose sliding scale Humalog DEHYDRATION-improved with hydration. -IV fluids as above CHRONIC KIDNEY DISEASE STAGE III-renal function improved with hydration -IV fluids as above -Closely monitor renal function and urine output ALZHEIMER'S DEMENTIA-no behavior issues. -Melatonin at bedtime MAINTENANCE ISSUES -DVT prophylaxis; enoxaparin -GI prophylaxis; PPI -Warner catheter; not indicated -Nutrition; consistent carbohydrate diet DISPOSITION-anticipate discharge to home after the hospital stay. Chase Lynne MD
[2020-10-03] MEDS: Pantoprazole 40 MG Tab.CR PO SCH (16:55)
[2020-10-03] MEDS: Enoxaparin 40 MG/0.4 ML Syringe SUBCUT SCH (20:24)
[2020-10-03] MEDS: Donepezil 10 MG Tab PO SCH (20:24)
[2020-10-03] MEDS: Melatonin 3 MG Tab PO SCH (20:25)
[2020-10-03] MEDS: SIMVASTATIN 20MG TAB (PTOM) PO SCH ×2 (20:26→22:26)
[2020-10-04] MEDS: Insulin Lispro 100 Unit/ML 3 ML KwikPen SUBCUT SCH ×4 (07:30→21:18)
[2020-10-04] MEDS: Carvedilol 12.5 MG Tab PO SCH ×2 (07:41→16:41)
[2020-10-04] MEDS: Pantoprazole 40 MG Tab.CR PO SCH ×2 (07:41→16:41)
[2020-10-04] MEDS: amLODIPine 5 MG Tab PO SCH (08:50)
[2020-10-04] MEDS: Aspirin 81 MG Tab.EC PO SCH (08:50)
[2020-10-04] MEDS: Magnesium Oxide 400 MG Tab PO SCH ×2 (08:50→21:19)
[2020-10-04] MEDS: Lisinopril 20 MG Tab PO SCH (08:50)
--- NOTE | 2020-10-04 09:54 | PCM.PN ---
- General Info Date of Service: 10/04/20 Subjective Update: No acute events overnight. The patient reports that he feels well today. He does not report any abdominal pain or nausea. He ate well yesterday afternoon and evening and again this morning. He continues to have many loose bowel movements per day that persist through the night. He has not had any fevers. His white count is mildly elevated today. Vital signs have otherwise been stable. Functional Status: Reports: Pain Controlled, Tolerating Diet - Review of Systems General: Denies: Fever Gastrointestinal: Reports: Diarrhea - Patient Data Vitals - Most Recent: Last Vital Signs Temp 37.2 C 10/04/20 07:00 Pulse 68 10/04/20 07:41 Resp 16 10/04/20 07:00 BP 115/67 10/04/20 08:50 Pulse Ox 98 10/04/20 07:00 Weight - Most Recent: 79.016 kg I&O - Last 24 Hours: Intake & Output 10/03/20 10/04/20 10/04/20 22:59 06:59 14:59 Intake Total 1277 480 Balance 1277 480 Lab Results Last 24 Hours: Laboratory Results - last 24 hr 10/03/20 10/03/20 10/03/20 Range/Units 11:34 16:25 21:21 WBC (4.5-11.0) K/uL RBC (4.30-5.90) M/uL Hgb (12.0-15.0) g/dL Hct (40.0-54.0) % MCV (80-98) fL MCH (27-31) pg MCHC (32-36) % Plt Count (150-400) K/uL Sodium (140-148) mmol/L Potassium (3.6-5.2) mmol/L Chloride (100-108) mmol/L Carbon Dioxide (21-32) mmol/L Anion Gap (5.0-14.0) mmol/L BUN (7-18) mg/dL Creatinine (0.8-1.3) mg/dL Est Cr Clr Drug Dosing mL/min Estimated GFR (MDRD) (>60) Glucose (74-106) mg/dL POC Glucose 140 H 148 H 144 H (74-106) mg/dL Calcium (8.5-10.1) mg/dL C-Reactive Protein (0.0-0.3) mg/dL 10/04/20 10/04/20 10/04/20 Range/Units 05:57 05:57 07:26 WBC 11.9 H (4.5-11.0) K/uL RBC 4.49 (4.30-5.90) M/uL Hgb 13.0 D (12.0-15.0) g/dL Hct 37.7 L (40.0-54.0) % MCV 84 (80-98) fL MCH 29 (27-31) pg MCHC 35 (32-36) % Plt Count 283 (150-400) K/uL Sodium 141 (140-148) mmol/L Potassium 3.6 (3.6-5.2) mmol/L Chloride 109 H (100-108) mmol/L Carbon Dioxide 21 (21-32) mmol/L Anion Gap 14.6 H (5.0-14.0) mmol/L BUN 8 (7-18) mg/dL Creatinine 1.1 (0.8-1.3) mg/dL Est Cr Clr Drug Dosing 46.15 mL/min Estimated GFR (MDRD) > 60 (>60) Glucose 97 (74-106) mg/dL POC Glucose 98 (74-106) mg/dL Calcium 7.8 L (8.5-10.1) mg/dL C-Reactive Protein 2.02 H (0.0-0.3) mg/dL [facility] Results Last 24 Hours: Microbiology 10/04/20 08:09 Stool for WBCs - Final Stool / Feces Med Orders - Current: Current Medications Acetaminophen (Acetaminophen 325 Mg Tab) 650 mg PO Q4H PRN PRN Reason: Pain (Mild 1-3)/fever Albuterol (Albuterol 8 Gm Inhaler) 0 gm INH Q6H PRN PRN Reason: Wheezing Albuterol (Albuterol 0.083% 2.5 Mg/3 Ml Neb Soln) 2.5 mg NEB Q4H PRN PRN Reason: Shortness Of Breath/wheezing Amlodipine Besylate (Amlodipine 5 Mg Tab) 5 mg PO DAILY [facility] Last Admin: 10/04/20 08:50 Dose: 5 mg Documented by: Aspirin (Aspirin 81 Mg Tab.Ec) 81 mg PO DAILY [facility] Last Admin: 10/04/20 08:50 Dose: 81 mg Documented by: Carvedilol (Carvedilol 12.5 Mg Tab) 25 mg PO BIDMEALS [facility] Last Admin: 10/04/20 07:41 Dose: 25 mg Documented by: Dextrose (Glucose Gel 15 Gm In 37.5 Gm Tube) 15 gm PO ONETIME PRN PRN Reason: Hypoglycemia Dextrose/Water (50% Dextrose In Water 50 Ml Syringe) 50 ml IV ONETIME PRN PRN Reason: Hypoglycemia Enoxaparin Sodium (Enoxaparin 40 Mg/0.4 Ml Syringe) 40 mg SUBCUT BEDTIME [facility] Last Admin: 10/03/20 20:24 Dose: 40 mg Documented by: Insulin Human Lispro (Insulin Lispro 100 Unit/Ml 3 Ml Kwikpen) 0 unit SUBCUT QIDACANDBED [facility]; Protocol Last Admin: 10/04/20 07:30 Dose: Not Given Documented by: Lisinopril (Lisinopril 20 Mg Tab) 40 mg PO DAILY [facility] Last Admin: 10/04/20 08:50 Dose: 40 mg Documented by: Magnesium Oxide (Magnesium Oxide 400 Mg Tab) 400 mg PO BID [facility] Last Admin: 10/04/20 08:50 Dose: 400 mg Documented by: Melatonin (Melatonin 3 Mg Tab) 9 mg PO BEDTIME [facility] Last Admin: 10/03/20 20:25 Dose: 9 mg Documented by: Ondansetron HCl (Ondansetron 4 Mg/2 Ml Sdv) 4 mg IV Q4H PRN PRN Reason: Nausea/Vomiting Pantoprazole Sodium (Pantoprazole 40 Mg Tab.Cr) 40 mg PO BIDAC [facility] Last Admin: 10/04/20 07:41 Dose: 40 mg Documented by: Simvastatin 20mg Tab ((Ptom)) 1 each PO BEDTIME [facility] Last Admin: 10/03/20 22:26 Dose: 1 each Documented by: Potassium Chloride (Potassium Chloride 20 Meq Tab.Er) 40 meq PO ONETIME ONE Stop: 10/04/20 09:54 Sodium Chloride (Sodium Chloride 0.9% 10 Ml Syringe) 10 ml FLUSH ASDIRECTED PRN PRN Reason: Keep Vein Open Discontinued Medications Amlodipine Besylate (Amlodipine 5 Mg Tab (Ptom)) 5 mg PO DAILY [facility] Last Admin: 10/02/20 08:52 Dose: 5 mg Documented by: Atorvastatin Calcium (Atorvastatin 10 Mg Tab) 10 mg PO BEDTIME [facility] Donepezil HCl (Donepezil 10 Mg Tab Own Med ) 10 mg PO BEDTIME [facility] Last Admin: 10/01/20 21:24 Dose: 10 mg Documented by: Donepezil HCl (Donepezil 10 Mg Tab) 10 mg PO BEDTIME [facility] Last Admin: 10/03/20 20:24 Dose: 10 mg Documented by: Lactated Ringer's (Ringers, Lactated) 1,000 mls @ 999 mls/hr IV ASDIRECTED [facility] Last Admin: 10/01/20 15:04 Dose: 999 mls/hr Documented by: Sodium Chloride (Normal Saline) 1,000 mls @ 125 mls/hr IV ASDIRECTED [facility] Last Admin: 10/02/20 09:40 Dose: 125 mls/hr Documented by: Magnesium Sulfate 2 gm/ Premix 50 mls @ 25 mls/hr IV Q6H [facility] Stop: 10/02/20 11:29 Last Admin: 10/02/20 09:36 Dose: 25 mls/hr Documented by: Sodium Chloride (Normal Saline) 1,000 mls @ 75 mls/hr IV ASDIRECTED [facility] Stop: 10/03/20 20:00 Last Admin: 10/03/20 08:55 Dose: 75 mls/hr Documented by: Carvedilol 25mg Tabs ( Own Med ) 25 each PO BIDMEALS [facility] Last Admin: 10/01/20 21:25 Dose: 25 each Documented by: Simvastatin 20mg Tab ( Own Med ) 10 each PO BEDTIME [facility] Last Admin: 10/01/20 21:25 Dose: 10 each Documented by: Carvedilol 25mg Tabs ( Own Med ) 0 each PO BIDMEALS [facility] Last Admin: 10/02/20 08:53 Dose: 1 each Documented by: Ondansetron HCl (Ondansetron 4 Mg/2 Ml Sdv) 4 mg IVPUSH ONETIME ONE Stop: 10/01/20 14:48 Last Admin: 10/01/20 15:04 Dose: 4 mg Documented by: Pantoprazole Sodium (Pantoprazole 40 Mg Vial) 40 mg IVPUSH Q12H [facility] Last Admin: 10/03/20 05:47 Dose: 40 mg Documented by: Lisinopril 40mg Tab ((Ptom)) 1 each PO DAILY [facility] Last Admin: 10/02/20 08:53 Dose: 1 each Documented by: Potassium Chloride (Potassium Chloride 20 Meq Tab.Er) 40 meq PO ONETIME ONE Stop: 10/02/20 08:31 Last Admin: 10/02/20 08:55 Dose: 40 meq Documented by: Sodium Chloride (Sodium Chloride 0.9% 10 Ml Syringe) 10 ml FLUSH ASDIRECTED PRN PRN Reason: Keep Vein Open Last Admin: 10/01/20 15:04 Dose: 10 ml Documented by: - Exam General: Alert, Cooperative, No Acute Distress Lungs: Normal Respiratory Effort GI/Abdominal Exam: Soft, No Distention Extremities: No Pedal Edema Psy/Mental Status: Alert, Normal Affect - Patient Data Lab Results Last 24 hrs: Laboratory Results - last 24 hr 10/03/20 10/03/20 10/03/20 Range/Units 11:34 16:25 21:21 WBC (4.5-11.0) K/uL RBC (4.30-5.90) M/uL Hgb (12.0-15.0) g/dL Hct (40.0-54.0) % MCV (80-98) fL MCH (27-31) pg MCHC (32-36) % Plt Count (150-400) K/uL Sodium (140-148) mmol/L Potassium (3.6-5.2) mmol/L Chloride (100-108) mmol/L Carbon Dioxide (21-32) mmol/L Anion Gap (5.0-14.0) mmol/L BUN (7-18) mg/dL Creatinine (0.8-1.3) mg/dL Est Cr Clr Drug Dosing mL/min Estimated GFR (MDRD) (>60) Glucose (74-106) mg/dL POC Glucose 140 H 148 H 144 H (74-106) mg/dL Calcium (8.5-10.1) mg/dL C-Reactive Protein (0.0-0.3) mg/dL 10/04/20 10/04/20 10/04/20 Range/Units 05:57 05:57 07:26 WBC 11.9 H (4.5-11.0) K/uL RBC 4.49 (4.30-5.90) M/uL Hgb 13.0 D (12.0-15.0) g/dL Hct 37.7 L (40.0-54.0) % MCV 84 (80-98) fL MCH 29 (27-31) pg MCHC 35 (32-36) % Plt Count 283 (150-400) K/uL Sodium 141 (140-148) mmol/L Potassium 3.6 (3.6-5.2) mmol/L Chloride 109 H (100-108) mmol/L Carbon Dioxide 21 (21-32) mmol/L Anion Gap 14.6 H (5.0-14.0) mmol/L BUN 8 (7-18) mg/dL Creatinine 1.1 (0.8-1.3) mg/dL Est Cr Clr Drug Dosing 46.15 mL/min Estimated GFR (MDRD) > 60 (>60) Glucose 97 (74-106) mg/dL POC Glucose 98 (74-106) mg/dL Calcium 7.8 L (8.5-10.1) mg/dL C-Reactive Protein 2.02 H (0.0-0.3) mg/dL Result Diagrams: 10/04/20 05:57 10/04/20 05:57 [facility] Results Last 24 hrs: Microbiology 10/04/20 08:09 Stool for WBCs - Final Stool / Feces Sepsis Event Note - Evaluation Sepsis Screening Result: No Definite Risk - Focused Exam Vital Signs: Vital Signs Temp Pulse Pulse Resp BP BP Pulse Ox 10/04/20 08:50 115/67 10/04/20 07:41 68 115/67 10/04/20 07:00 37.2 C 68 16 115/67 98 10/04/20 03:00 35.9 C L 60 16 116/78 98 10/03/20 22:27 37.3 C 65 16 115/70 96 - Problem List Review Problem List Initiated/Reviewed/Updated: Yes - My Orders Last 24 Hours: My Active Orders 10/03/20 15:40 Dietary Supplements [RC] TIDMEALS 10/03/20 21:00 Melatonin 9 mg PO BEDTIME 10/04/20 08:09 CULTURE STOOL + SHIGATOX [RM] Routine 10/04/20 09:52 Abdomen Pelvis w Cont [CT] Routine 10/04/20 09:53 Potassium Chloride [Klor-Con M20] 40 meq PO ONETIME ONE 10/05/20 05:00 BASIC METABOLIC PANEL,BMP [CHEM] Timed CBC W/O DIFF,HEMOGRAM [HEME] Timed (1) - Plan Plan:: ASSESSMENT AND PLAN ENTERITIS-nausea resolved and intake is finally improving. Still having multiple loose stools both during the daytime and at night. No pain today. White count is slightly elevated today. Could be medication related, Trulicity and Metformin have been on hold. Also planning to hold donepezil. Smoldering infection could be considered versus inflammation. -CT scan of the abdomen and pelvis to look for inflammation versus infection -Stool studies -Stop donepezil -Hold Trulicity -Stool culture and fecal leukocytes -Nausea medication as needed -Consistent carbohydrate diet as tolerated -Dietary supplements with poor appetite TYPE 2 DIABETES MELLITUS-blood sugar control has been acceptable. -Hold glipizide, Metformin, and Trulicity -4 times daily glucometers -Low-dose sliding scale Humalog DEHYDRATION-improved with hydration. -IV fluids as above CHRONIC KIDNEY DISEASE STAGE III-renal function improved with hydration -IV fluids as above -Closely monitor renal function and urine output ALZHEIMER'S DEMENTIA-no behavior issues. -Melatonin at bedtime -Hold donepezil as above MAINTENANCE ISSUES -DVT prophylaxis; enoxaparin -GI prophylaxis; PPI -Warner catheter; not indicated -Nutrition; consistent carbohydrate diet DISPOSITION-anticipate discharge to home after the hospital stay. Chase Lynne MD
[2020-10-04] MEDS ORDERED: Sodium Chloride 0.9% 10 ML Syringe FLUSH PRN (10:36)
[2020-10-04] MEDS ORDERED: Iopamidol 612 MG/ML 150 ML Bottle IV SCH (10:45)
--- NOTE | 2020-10-04 13:27 | CRLCT ---
For Patients: As a result of the Century Cures Act, medical imaging exams and procedure reports are released immediately into your electronic medical record. You may view this report before your referring provider. If you have questions, please contact your health care provider. Indication: Chronic diarrhea Technique: Volumetric multidetector CT images of the abdomen and pelvis were obtained after the administration of intravenous contrast. 118 cc Isovue-300 low osmolar intravenous contrast Comparison: CT abdomen and pelvis March 29, 2020 Findings: The lung bases are clear. The liver is normal in attenuation without intrahepatic biliary ductal dilatation. The portal vein is patent. The gallbladder is unremarkable without evidence of radiopaque calculus. There is no significant common biliary ductal dilatation or abrupt cut off. The spleen is normal in enhancement and size. The stomach and duodenum are grossly unremarkable. There is mild pancreatic atrophy with stable coarse calcifications at the pancreatic head likely representing sequela of prior pancreatitis. The adrenal glands are unremarkable. The kidneys demonstrate preserved corticomedullary differentiation without evidence of obstructive uropathy. There is moderate stool seen throughout the colon with distal colonic diverticulosis with prior distal colectomy and primary reanastomosis. There is minimal fluid seen within the distal small bowel loops which may represent minimal enteritis changes. The appendix is unremarkable. There is no significant mesenteric, retroperitoneal, or pelvic sidewall lymph nodes. The aorta is nonaneurysmal. There is no significant atherosclerotic disease appreciated. There is a decompressed appearing bladder with mild nonspecific bladder wall thickening. There is no free fluid or free air. The anterior abdominal wall is intact without significant hernias. The lumbar vertebral body heights are grossly maintained with minimal endplate Schmorl`s defects and moderate multilevel degenerative disc disease. There is moderate facet arthrosis. Impression: Postoperative change status post distal colectomy and primary reanastomosis with minimal colonic diverticulosis. No obvious colonic inflammation is appreciated. There is mild nonspecific fluid containing loops of central small bowel which could be seen in the setting of enteritis. Otherwise, no definite acute intra-abdominal abnormality is appreciated. Please note that all CT scans at this facility use dose modulation, iterative reconstruction, and/or weight-based dosing when appropriate to reduce radiation dose to as low as reasonably achievable. Dictated by Zhang Hendrickson MD @ 10/04/2020 1:25:[address] Zhang Hendrickson @ Oct 04 2020 1:25PM
[2020-10-04] MEDS ORDERED: Potassium Chloride 20 MEQ Tab.ER PO ONE (14:00)
[2020-10-04] MEDS: Melatonin 3 MG Tab PO SCH (21:19)
[2020-10-04] MEDS: SIMVASTATIN 20MG TAB (PTOM) PO SCH (21:19)
[2020-10-04] MEDS: Enoxaparin 40 MG/0.4 ML Syringe SUBCUT SCH (21:19)
[2020-10-05] MEDS: Pantoprazole 40 MG Tab.CR PO SCH ×2 (09:15→16:28)
[2020-10-05] MEDS: Insulin Lispro 100 Unit/ML 3 ML KwikPen SUBCUT SCH ×4 (09:15→22:40)
[2020-10-05] MEDS: Magnesium Oxide 400 MG Tab PO SCH ×2 (09:16→22:31)
[2020-10-05] MEDS: Aspirin 81 MG Tab.EC PO SCH (09:16)
[2020-10-05] MEDS: amLODIPine 5 MG Tab PO SCH (09:16)
[2020-10-05] MEDS: Lisinopril 20 MG Tab PO SCH (09:16)
[2020-10-05] MEDS: Carvedilol 12.5 MG Tab PO SCH ×2 (09:16→16:29)
[2020-10-05] MEDS: metFORMIN 500 MG Tab PO SCH ×2 (11:01→16:28)
--- NOTE | 2020-10-05 12:09 | PCM.PN ---
- General Info Date of Service: 10/05/20 Subjective Update: There were no acute events overnight. Patient reports that he feels well today and offers no concerns. No diarrhea or nausea. Appetite has been good. He did get a dose of Metformin this morning. Hoping to go home tomorrow if everything continues to go well. Functional Status: Reports: Pain Controlled, Tolerating Diet - Review of Systems General: Denies: Fever Gastrointestinal: Denies: Diarrhea - Patient Data Vitals - Most Recent: Last Vital Signs Temp 36.6 C 10/05/20 11:00 Pulse 60 10/05/20 11:00 Resp 16 10/05/20 11:00 BP 118/69 10/05/20 11:00 Pulse Ox 97 10/05/20 11:00 Weight - Most Recent: 78.789 kg I&O - Last 24 Hours: Intake & Output 10/04/20 10/05/20 10/05/20 22:59 06:59 14:59 Intake Total 240 600 Balance 240 600 Lab Results Last 24 Hours: Laboratory Results - last 24 hr 10/04/20 10/04/20 10/04/20 Range/Units 16:19 21:00 21:09 WBC (4.5-11.0) K/uL RBC (4.30-5.90) M/uL Hgb (12.0-15.0) g/dL Hct (40.0-54.0) % MCV (80-98) fL MCH (27-31) pg MCHC (32-36) % Plt Count (150-400) K/uL Sodium (140-148) mmol/L Potassium (3.6-5.2) mmol/L Chloride (100-108) mmol/L Carbon Dioxide (21-32) mmol/L Anion Gap (5.0-14.0) mmol/L BUN (7-18) mg/dL Creatinine (0.8-1.3) mg/dL Est Cr Clr Drug Dosing mL/min Estimated GFR (MDRD) (>60) Glucose (74-106) mg/dL POC Glucose 127 H 141 H 141 H (74-106) mg/dL Calcium (8.5-10.1) mg/dL 10/05/20 10/05/20 10/05/20 Range/Units 04:58 04:58 07:31 WBC 9.8 (4.5-11.0) K/uL RBC 4.41 (4.30-5.90) M/uL Hgb 13.0 (12.0-15.0) g/dL Hct 36.9 L (40.0-54.0) % MCV 84 (80-98) fL MCH 30 (27-31) pg MCHC 35 (32-36) % Plt Count 262 (150-400) K/uL Sodium 141 (140-148) mmol/L Potassium 3.6 (3.6-5.2) mmol/L Chloride 108 (100-108) mmol/L Carbon Dioxide 25 (21-32) mmol/L Anion Gap 7.9 (5.0-14.0) mmol/L BUN 5 L (7-18) mg/dL Creatinine 0.9 (0.8-1.3) mg/dL Est Cr Clr Drug Dosing 56.41 mL/min Estimated GFR (MDRD) > 60 (>60) Glucose 122 H (74-106) mg/dL POC Glucose 117 H (74-106) mg/dL Calcium 7.9 L (8.5-10.1) mg/dL 10/05/20 Range/Units 11:22 WBC (4.5-11.0) K/uL RBC (4.30-5.90) M/uL Hgb (12.0-15.0) g/dL Hct (40.0-54.0) % MCV (80-98) fL MCH (27-31) pg MCHC (32-36) % Plt Count (150-400) K/uL Sodium (140-148) mmol/L Potassium (3.6-5.2) mmol/L Chloride (100-108) mmol/L Carbon Dioxide (21-32) mmol/L Anion Gap (5.0-14.0) mmol/L BUN (7-18) mg/dL Creatinine (0.8-1.3) mg/dL Est Cr Clr Drug Dosing mL/min Estimated GFR (MDRD) (>60) Glucose (74-106) mg/dL POC Glucose 166 H (74-106) mg/dL Calcium (8.5-10.1) mg/dL Jayden Results Last 24 Hours: Microbiology 10/04/20 08:09 Stool Culture - Preliminary Stool / Feces NORMAL ENTERIC KARLENE 1 DAY Shiga Toxin I - Final NEGATIVE FOR SHIGA TOXIN 1 Shiga Toxin II - Final NEGATIVE FOR SHIGA TOXIN 2 REFERENCE RANGE: NEGATIVE 10/04/20 08:09 Stool for WBCs - Final Stool / Feces Med Orders - Current: Current Medications Acetaminophen (Acetaminophen 325 Mg Tab) 650 mg PO Q4H PRN PRN Reason: Pain (Mild 1-3)/fever Albuterol (Albuterol 8 Gm Inhaler) 0 gm INH Q6H PRN PRN Reason: Wheezing Albuterol (Albuterol 0.083% 2.5 Mg/3 Ml Neb Soln) 2.5 mg NEB Q4H PRN PRN Reason: Shortness Of Breath/wheezing Amlodipine Besylate (Amlodipine 5 Mg Tab) 5 mg PO DAILY [facility] Last Admin: 10/05/20 09:16 Dose: 5 mg Documented by: Aspirin (Aspirin 81 Mg Tab.Ec) 81 mg PO DAILY [facility] Last Admin: 10/05/20 09:16 Dose: 81 mg Documented by: Carvedilol (Carvedilol 12.5 Mg Tab) 25 mg PO BIDMEALS [facility] Last Admin: 10/05/20 09:16 Dose: 25 mg Documented by: Dextrose (Glucose Gel 15 Gm In 37.5 Gm Tube) 15 gm PO ONETIME PRN PRN Reason: Hypoglycemia Dextrose/Water (50% Dextrose In Water 50 Ml Syringe) 50 ml IV ONETIME PRN PRN Reason: Hypoglycemia Enoxaparin Sodium (Enoxaparin 40 Mg/0.4 Ml Syringe) 40 mg SUBCUT BEDTIME [facility] Last Admin: 10/04/20 21:19 Dose: 40 mg Documented by: Insulin Human Lispro (Insulin Lispro 100 Unit/Ml 3 Ml Kwikpen) 0 unit SUBCUT QIDACANDBED [facility]; Protocol Last Admin: 10/05/20 09:15 Dose: Not Given Documented by: Lisinopril (Lisinopril 20 Mg Tab) 40 mg PO DAILY [facility] Last Admin: 10/05/20 09:16 Dose: 40 mg Documented by: Magnesium Oxide (Magnesium Oxide 400 Mg Tab) 400 mg PO BID [facility] Last Admin: 10/05/20 09:16 Dose: 400 mg Documented by: Melatonin (Melatonin 3 Mg Tab) 9 mg PO BEDTIME [facility] Last Admin: 10/04/20 21:19 Dose: 9 mg Documented by: Metformin HCl (Metformin 500 Mg Tab) 500 mg PO BIDMEALS [facility] Last Admin: 10/05/20 11:01 Dose: 500 mg Documented by: Ondansetron HCl (Ondansetron 4 Mg/2 Ml Sdv) 4 mg IV Q4H PRN PRN Reason: Nausea/Vomiting Pantoprazole Sodium (Pantoprazole 40 Mg Tab.Cr) 40 mg PO BIDAC [facility] Last Admin: 10/05/20 09:15 Dose: 40 mg Documented by: Simvastatin 20mg Tab ((Ptom)) 1 each PO BEDTIME [facility] Last Admin: 10/04/20 21:19 Dose: 1 each Documented by: Sodium Chloride (Sodium Chloride 0.9% 10 Ml Syringe) 10 ml FLUSH ASDIRECTED PRN PRN Reason: Keep Vein Open Discontinued Medications Amlodipine Besylate (Amlodipine 5 Mg Tab (Ptom)) 5 mg PO DAILY [facility] Last Admin: 10/02/20 08:52 Dose: 5 mg Documented by: Atorvastatin Calcium (Atorvastatin 10 Mg Tab) 10 mg PO BEDTIME [facility] Donepezil HCl (Donepezil 10 Mg Tab Own Med ) 10 mg PO BEDTIME [facility] Last Admin: 10/01/20 21:24 Dose: 10 mg Documented by: Donepezil HCl (Donepezil 10 Mg Tab) 10 mg PO BEDTIME [facility] Last Admin: 10/03/20 20:24 Dose: 10 mg Documented by: Lactated Ringer's (Ringers, Lactated) 1,000 mls @ 999 mls/hr IV ASDIRECTED [facility] Last Admin: 10/01/20 15:04 Dose: 999 mls/hr Documented by: Sodium Chloride (Normal Saline) 1,000 mls @ 125 mls/hr IV ASDIRECTED [facility] Last Admin: 10/02/20 09:40 Dose: 125 mls/hr Documented by: Magnesium Sulfate 2 gm/ Premix 50 mls @ 25 mls/hr IV Q6H [facility] Stop: 10/02/20 11:29 Last Admin: 10/02/20 09:36 Dose: 25 mls/hr Documented by: Sodium Chloride (Normal Saline) 1,000 mls @ 75 mls/hr IV ASDIRECTED [facility] Stop: 10/03/20 20:00 Last Admin: 10/03/20 08:55 Dose: 75 mls/hr Documented by: Sodium Chloride (Normal Saline) 76 mls @ 3 mls/sec IV ONETIME ONE Stop: 10/04/20 11:01 Last Admin: 10/04/20 12:57 Dose: 3 mls/sec Documented by: Iopamidol (Iopamidol 612 Mg/Ml 150 Ml Bottle) 112 ml IV . DIRECTED [facility] Stop: 10/04/20 11:00 Last Admin: 10/04/20 12:58 Dose: 112 ml Documented by: Carvedilol 25mg Tabs ( Own Med ) 25 each PO BIDMEALS [facility] Last Admin: 10/01/20 21:25 Dose: 25 each Documented by: Simvastatin 20mg Tab ( Own Med ) 10 each PO BEDTIME [facility] Last Admin: 10/01/20 21:25 Dose: 10 each Documented by: Carvedilol 25mg Tabs ( Own Med ) 0 each PO BIDMEALS [facility] Last Admin: 10/02/20 08:53 Dose: 1 each Documented by: Ondansetron HCl (Ondansetron 4 Mg/2 Ml Sdv) 4 mg IVPUSH ONETIME ONE Stop: 10/01/20 14:48 Last Admin: 10/01/20 15:04 Dose: 4 mg Documented by: Pantoprazole Sodium (Pantoprazole 40 Mg Vial) 40 mg IVPUSH Q12H [facility] Last Admin: 10/03/20 05:47 Dose: 40 mg Documented by: Lisinopril 40mg Tab ((Ptom)) 1 each PO DAILY [facility] Last Admin: 10/02/20 08:53 Dose: 1 each Documented by: Potassium Chloride (Potassium Chloride 20 Meq Tab.Er) 40 meq PO ONETIME ONE Stop: 10/02/20 08:31 Last Admin: 10/02/20 08:55 Dose: 40 meq Documented by: Potassium Chloride (Potassium Chloride 20 Meq Tab.Er) 40 meq PO ONETIME ONE Stop: 10/04/20 14:01 Last Admin: 10/04/20 14:32 Dose: 40 meq Documented by: Sodium Chloride (Sodium Chloride 0.9% 10 Ml Syringe) 10 ml FLUSH ASDIRECTED PRN PRN Reason: Keep Vein Open Last Admin: 10/01/20 15:04 Dose: 10 ml Documented by: Sodium Chloride (Sodium Chloride 0.9% 10 Ml Syringe) 10 ml FLUSH ONETIME PRN PRN Reason: PER RADIOLOGY PROTOCOL Stop: 10/04/20 11:00 Last Admin: 10/04/20 12:57 Dose: 10 ml Documented by: - Exam Quality Assessment: No: Supplemental Oxygen General: Alert, Cooperative, No Acute Distress. No: Oriented Lungs: Normal Respiratory Effort GI/Abdominal Exam: Soft, No Distention Extremities: No Pedal Edema Skin: Warm, Dry Psy/Mental Status: Alert, Normal Affect - Patient Data Lab Results Last 24 hrs: Laboratory Results - last 24 hr 10/04/20 10/04/20 10/04/20 Range/Units 16:19 21:00 21:09 WBC (4.5-11.0) K/uL RBC (4.30-5.90) M/uL Hgb (12.0-15.0) g/dL Hct (40.0-54.0) % MCV (80-98) fL MCH (27-31) pg MCHC (32-36) % Plt Count (150-400) K/uL Sodium (140-148) mmol/L Potassium (3.6-5.2) mmol/L Chloride (100-108) mmol/L Carbon Dioxide (21-32) mmol/L Anion Gap (5.0-14.0) mmol/L BUN (7-18) mg/dL Creatinine (0.8-1.3) mg/dL Est Cr Clr Drug Dosing mL/min Estimated GFR (MDRD) (>60) Glucose (74-106) mg/dL POC Glucose 127 H 141 H 141 H (74-106) mg/dL Calcium (8.5-10.1) mg/dL 10/05/20 10/05/20 10/05/20 Range/Units 04:58 04:58 07:31 WBC 9.8 (4.5-11.0) K/uL RBC 4.41 (4.30-5.90) M/uL Hgb 13.0 (12.0-15.0) g/dL Hct 36.9 L (40.0-54.0) % MCV 84 (80-98) fL MCH 30 (27-31) pg MCHC 35 (32-36) % Plt Count 262 (150-400) K/uL Sodium 141 (140-148) mmol/L Potassium 3.6 (3.6-5.2) mmol/L Chloride 108 (100-108) mmol/L Carbon Dioxide 25 (21-32) mmol/L Anion Gap 7.9 (5.0-14.0) mmol/L BUN 5 L (7-18) mg/dL Creatinine 0.9 (0.8-1.3) mg/dL Est Cr Clr Drug Dosing 56.41 mL/min Estimated GFR (MDRD) > 60 (>60) Glucose 122 H (74-106) mg/dL POC Glucose 117 H (74-106) mg/dL Calcium 7.9 L (8.5-10.1) mg/dL 10/05/20 Range/Units 11:22 WBC (4.5-11.0) K/uL RBC (4.30-5.90) M/uL Hgb (12.0-15.0) g/dL Hct (40.0-54.0) % MCV (80-98) fL MCH (27-31) pg MCHC (32-36) % Plt Count (150-400) K/uL Sodium (140-148) mmol/L Potassium (3.6-5.2) mmol/L Chloride (100-108) mmol/L Carbon Dioxide (21-32) mmol/L Anion Gap (5.0-14.0) mmol/L BUN (7-18) mg/dL Creatinine (0.8-1.3) mg/dL Est Cr Clr Drug Dosing mL/min Estimated GFR (MDRD) (>60) Glucose (74-106) mg/dL POC Glucose 166 H (74-106) mg/dL Calcium (8.5-10.1) mg/dL Result Diagrams: 10/05/20 04:58 10/05/20 04:58 Jayden Results Last 24 hrs: Microbiology 10/04/20 08:09 Stool Culture - Preliminary Stool / Feces NORMAL ENTERIC KARLENE 1 DAY Shiga Toxin I - Final NEGATIVE FOR SHIGA TOXIN 1 Shiga Toxin II - Final NEGATIVE FOR SHIGA TOXIN 2 REFERENCE RANGE: NEGATIVE 10/04/20 08:09 Stool for WBCs - Final Stool / Feces Sepsis Event Note - Evaluation Sepsis Screening Result: No Definite Risk - Focused Exam Vital Signs: Vital Signs Temp Pulse Pulse Resp BP BP BP 10/05/20 11:00 36.6 C 60 16 118/69 07/28/21 09:16 62 119/63 10/05/20 07:30 36.3 C 62 16 119/63 10/05/20 02:57 36.6 C 75 18 120/79 Pulse Ox 10/05/20 11:00 97 10/05/20 09:16 10/05/20 07:30 97 10/05/20 02:57 95 - Problem List Review Problem List Initiated/Reviewed/Updated: Yes - My Orders Last 24 Hours: My Active Orders 10/05/20 08:30 metFORMIN [Glucophage] 500 mg PO BIDMEALS - Plan Plan:: ASSESSMENT AND PLAN ENTERITIS-nausea and diarrhea both seem to have resolved. CT scan showed a couple of small areas of the intestine that could be consistent with enteritis but no acute findings. Restarting Metformin today to see if that has any impact on symptoms but in general seems to be improving. Stool studies negative. -Hold Trulicity -Nausea medication as needed -Consistent carbohydrate diet as tolerated -Dietary supplement TYPE 2 DIABETES MELLITUS-blood sugar control has been acceptable. -Restart Metformin -Hold Trulicity -4 times daily glucometers -Low-dose sliding scale Humalog DEHYDRATION-improved with hydration. CHRONIC KIDNEY DISEASE STAGE III-renal function improved with hydration -Closely monitor renal function and urine output ALZHEIMER'S DEMENTIA-no behavior issues. -Melatonin at bedtime -Hold donepezil as above MAINTENANCE ISSUES -DVT prophylaxis; enoxaparin -GI prophylaxis; PPI -Warner catheter; not indicated -Nutrition; consistent carbohydrate diet DISPOSITION-anticipate discharge to home with home care after the hospital stay, likely tomorrow stable overnight Chase Lynne MD
[2020-10-05] MEDS: Enoxaparin 40 MG/0.4 ML Syringe SUBCUT SCH (22:31)
[2020-10-05] MEDS: SIMVASTATIN 20MG TAB (PTOM) PO SCH (22:32)
[2020-10-05] MEDS: Melatonin 3 MG Tab PO SCH (22:32)
[2020-10-06] MEDS: Insulin Lispro 100 Unit/ML 3 ML KwikPen SUBCUT SCH ×2 (07:36→12:23)
[2020-10-06] MEDS: Pantoprazole 40 MG Tab.CR PO SCH (07:37)
[2020-10-06] MEDS: metFORMIN 500 MG Tab PO SCH (07:38)
[2020-10-06] MEDS: Carvedilol 12.5 MG Tab PO SCH (07:38)
[2020-10-06] MEDS: amLODIPine 5 MG Tab PO SCH (08:13)
[2020-10-06] MEDS: Aspirin 81 MG Tab.EC PO SCH (08:13)
[2020-10-06] MEDS: Magnesium Oxide 400 MG Tab PO SCH (08:13)
[2020-10-06] MEDS: Lisinopril 20 MG Tab PO SCH (08:14)
--- NOTE | 2020-10-06 10:34 | PCM.DCSUM1 ---
Discharge Summary - Hospital Course Brief History: 84-year-old male with history of Alzheimer's dementia, type 2 diabetes mellitus who presented with nausea, diarrhea and dehydration. He was admitted for observation for further work-up and management. Diagnosis: Stroke: No - Discharge Data Discharge Date: 10/06/20 Discharge Disposition: Home, W Home Health Agency 06 Condition: Good - Referral to Home Health Date of Face to Face Encounter: 10/06/20 Reason for Homebound Status: weakness, dementia, cardiomyopathy Primary Care Physician: Bo Sutherland MD Skilled Need: PT and GOLD TOOLER - Discharge Diagnosis/Problem(s) (1) Viral gastroenteritis SNOMED Code(s): 060824699 ICD Code: A08.4 - VIRAL INTESTINAL INFECTION, UNSPECIFIED Status: Acute (2) Diarrhea SNOMED Code(s): 71199678 ICD Code: R19.7 - DIARRHEA, UNSPECIFIED Status: Acute Qualifiers: Diarrhea type: presumed infectious Qualified Code(s): R19.7 - Diarrhea, unspecified (3) Dehydration SNOMED Code(s): 39693923 ICD Code: E86.0 - DEHYDRATION Status: Acute (4) Nausea and vomiting SNOMED Code(s): 88198527 ICD Code: R11.2 - NAUSEA WITH VOMITING, UNSPECIFIED Status: Acute Qualifiers: Vomiting type: unspecified Vomiting Intractability: non-intractable Qualified Code(s): R11.2 - Nausea with vomiting, unspecified (5) Diabetes mellitus type 2 SNOMED Code(s): 11701978 ICD Code: E11.9 - TYPE 2 DIABETES MELLITUS WITHOUT COMPLICATIONS Status: Chronic Priority: High (6) Alzheimer's dementia without behavioral disturbance SNOMED Code(s): 30287678 ICD Code: G30.9 - ALZHEIMER'S DISEASE, UNSPECIFIED; F02.80 - DEMENTIA IN OTH DISEASES CLASSD ELSWHR W/O BEHAVRL DISTURB Status: Chronic Qualifiers: Alzheimer's disease onset: late-onset Qualified Code(s): G30.1 - Alzheimer's disease with late onset; F02.80 - Dementia in other diseases classified elsewhere without behavioral disturbance - Patient Summary/Data Hospital Course: Nick presented to the emergency room with about 3 weeks of persistent nausea as well as diarrhea. Family was worried that he was not keeping up with his fluids and he was becoming dehydrated. Work-up in the emergency room revealed a normal white blood cell count and no fevers. There was some evidence for dehydration and a slight elevation in his creatinine from baseline. Electrolytes were acceptable. Distally he was admitted to observation but then there became a concern that this could be related to one of his medications, most notably his diabetic medications. He was transitioned to inpatient with significant persistent diarrhea. He received IV fluids over the first couple of days. His Trulicity and Metformin were held. He continued to have diarrhea for the next several days but did eventually resolved. Towards the middle of the hospital stay with persistent multiple loose to watery bowel movements we did perform s ome stool studies and these were unremarkable. A CT scan of the abdomen and pelvis showed only a couple of small small bowel loops that could suggest enteritis. Eventually the diarrhea resolved. I did restart his Metformin and the diarrhea and nausea have not recurred. He has been tolerating a regular diet. Strength has been good. His vital signs have all been stable. I suspect most likely that he did have a viral infection to begin since his was sick with similar symptoms at the time. She recovered quickly but he had persistent diarrhea. After a couple of days of hydration his diarrhea did settle down and then resolved fairly quickly. We did not ever treat with antibiotics. His blood sugars have been pretty well controlled with just Metformin but I am going to restart and continue his oral diabetic medications. We will hold Trulicity for the time being and see what his blood sugars do over the next week. Given the good control in the hospital stay he may not need this medication. If his blood sugars do rise over the next week this will likely be restarted at the time of follow-up with his clinical nurse educator. No other medication changes were made. - Patient Instructions Diet: Diabetic Diet Activity: As Tolerated Showering/Bathing: May Shower Other/Special Instructions: 1. You were in the hospital for evaluation and management of diarrhea with nausea and dehydration that I suspect was caused by a viral gastroenteritis. Your condition improved with IV fluid hydration. There was some suspicion that this could have been medication related but after additional monitoring I doubt this was the case. I would recommend that you hold the Trulicity at least until after your follow-up with Tia. If your sugars rise between now and then it may need to be restarted but if they remain good without the medication then it can be discontinued. Drink plenty of water/fluid each day to maintain hydration. Your goal should be 48 to 64 ounces of fluid daily. 2. Hold your Trulicity but otherwise continue your usual home medications as previously prescribed. It is important to. 3. I have placed a referral to home health care. They will provide physical therapy and home health aide services to help ease your transition home. 4. Please follow up with your primary care provider as well as clinical nurse educator as scheduled - Discharge Plan *PRESCRIPTION DRUG MONITORING PROGRAM REVIEWED*: Not Applicable *COPY OF PRESCRIPTION DRUG MONITORING REPORT IN PATIENT DEREK: Not Applicable Home Medications: Home Meds Albuterol Sulfate [Albuterol Sulfate HFA] 2 puff INH Q6H PRN 06/04/13 [History] Furosemide 40 mg PO DAILY 06/04/13 [History] Glimepiride 2 mg PO DAILY 06/04/13 [History] Lisinopril 40 mg PO DAILY 06/04/13 [History] amLODIPine Besylate [Amlodipine Besylate] 5 mg PO DAILY 06/04/13 [History] carvediloL [Carvedilol] 25 mg PO BID 06/04/13 [History] metFORMIN [Glucophage] 1,000 mg PO BID 06/04/13 [History] Donepezil HCl 1 tab PO BEDTIME 03/30/19 [History] Albuterol [Proventil Neb Soln] 2.5 mg .XX Q6H 11/24/19 [History] Aspirin [Halfprin] 81 mg PO DAILY 11/24/19 [History] Simvastatin [Zocor] 20 mg PO BEDTIME 11/24/19 [History] Oxygen Therapy Mode: Room Air Patient Handouts: Dehydration, Elderly, [id number] Referrals: Tosha Hancock RN [Registered Nurse] - 10/14/20 1:00 pm (Please arrive 15 minutes earlier to register for your appointments.) Bo Sutherland MD [Primary Care Provider] - 10/14/20 1:30 pm - Discharge Summary/Plan Comment DC Time >30 min.: No - Patient Data Vitals - Most Recent: Last Vital Signs Temp 36.2 C 10/06/20 07:38 Pulse 66 10/06/20 07:38 Resp 16 10/06/20 07:38 BP 144/82 H 10/06/20 08:14 Pulse Ox 95 10/06/20 07:38 Weight - Most Recent: 78.018 kg I&O - Last 24 hours: Intake & Output 10/05/20 10/06/20 10/06/20 22:59 06:59 14:59 Intake Total 420 60 Balance 420 60 Lab Results - Last 24 hrs: Laboratory Results - last 24 hr 10/05/20 10/05/20 10/05/20 Range/Units 11:22 16:25 21:00 POC Glucose 166 H 164 H 154 H (74-106) mg/dL 10/06/20 Range/Units 07:23 POC Glucose 147 H (74-106) mg/dL [facility] Results - Last 24 hrs: Microbiology 10/04/20 08:09 Stool Culture - Preliminary Stool / Feces NORMAL ENTERIC KARLENE 2 DAYS Shiga Toxin I - Final NEGATIVE FOR SHIGA TOXIN 1 Shiga Toxin II - Final NEGATIVE FOR SHIGA TOXIN 2 REFERENCE RANGE: NEGATIVE Med Orders - Current: Current Medications Acetaminophen (Acetaminophen 325 Mg Tab) 650 mg PO Q4H PRN PRN Reason: Pain (Mild 1-3)/fever Albuterol (Albuterol 8 Gm Inhaler) 0 gm INH Q6H PRN PRN Reason: Wheezing Albuterol (Albuterol 0.083% 2.5 Mg/3 Ml Neb Soln) 2.5 mg NEB Q4H PRN PRN Reason: Shortness Of Breath/wheezing Amlodipine Besylate (Amlodipine 5 Mg Tab) 5 mg PO DAILY [facility] Last Admin: 10/06/20 08:13 Dose: 5 mg Documented by: Aspirin (Aspirin 81 Mg Tab.Ec) 81 mg PO DAILY [facility] Last Admin: 10/06/20 08:13 Dose: 81 mg Documented by: Carvedilol (Carvedilol 12.5 Mg Tab) 25 mg PO BIDMEALS [facility] Last Admin: 10/06/20 07:38 Dose: 25 mg Documented by: Dextrose (Glucose Gel 15 Gm In 37.5 Gm Tube) 15 gm PO ONETIME PRN PRN Reason: Hypoglycemia Dextrose/Water (50% Dextrose In Water 50 Ml Syringe) 50 ml IV ONETIME PRN PRN Reason: Hypoglycemia Enoxaparin Sodium (Enoxaparin 40 Mg/0.4 Ml Syringe) 40 mg SUBCUT BEDTIME [facility] Last Admin: 10/05/20 22:31 Dose: 40 mg Documented by: Insulin Human Lispro (Insulin Lispro 100 Unit/Ml 3 Ml Kwikpen) 0 unit SUBCUT QIDACANDBED [facility]; Protocol Last Admin: 10/06/20 07:36 Dose: Not Given Documented by: Lisinopril (Lisinopril 20 Mg Tab) 40 mg PO DAILY [facility] Last Admin: 10/06/20 08:14 Dose: 40 mg Documented by: Magnesium Oxide (Magnesium Oxide 400 Mg Tab) 400 mg PO BID [facility] Last Admin: 10/06/20 08:13 Dose: 400 mg Documented by: Melatonin (Melatonin 3 Mg Tab) 9 mg PO BEDTIME [facility] Last Admin: 10/05/20 22:32 Dose: 9 mg Documented by: Metformin HCl (Metformin 500 Mg Tab) 500 mg PO BIDMEALS [facility] Last Admin: 10/06/20 07:38 Dose: 500 mg Documented by: Ondansetron HCl (Ondansetron 4 Mg/2 Ml Sdv) 4 mg IV Q4H PRN PRN Reason: Nausea/Vomiting Pantoprazole Sodium (Pantoprazole 40 Mg Tab.Cr) 40 mg PO BIDAC [facility] Last Admin: 10/06/20 07:37 Dose: 40 mg Documented by: Simvastatin 20mg Tab ((Ptom)) 1 each PO BEDTIME [facility] Last Admin: 10/05/20 22:32 Dose: 1 each Documented by: Sodium Chloride (Sodium Chloride 0.9% 10 Ml Syringe) 10 ml FLUSH ASDIRECTED PRN PRN Reason: Keep Vein Open Discontinued Medications Amlodipine Besylate (Amlodipine 5 Mg Tab (Ptom)) 5 mg PO DAILY [facility] Last Admin: 10/02/20 08:52 Dose: 5 mg Documented by: Atorvastatin Calcium (Atorvastatin 10 Mg Tab) 10 mg PO BEDTIME [facility] Donepezil HCl (Donepezil 10 Mg Tab Own Med ) 10 mg PO BEDTIME [facility] Last Admin: 10/01/20 21:24 Dose: 10 mg Documented by: Donepezil HCl (Donepezil 10 Mg Tab) 10 mg PO BEDTIME [facility] Last Admin: 10/03/20 20:24 Dose: 10 mg Documented by: Lactated Ringer's (Ringers, Lactated) 1,000 mls @ 999 mls/hr IV ASDIRECTED [facility] Last Admin: 10/01/20 15:04 Dose: 999 mls/hr Documented by: Sodium Chloride (Normal Saline) 1,000 mls @ 125 mls/hr IV ASDIRECTED [facility] Last Admin: 10/02/20 09:40 Dose: 125 mls/hr Documented by: Magnesium Sulfate 2 gm/ Premix 50 mls @ 25 mls/hr IV Q6H [facility] Stop: 10/02/20 11:29 Last Admin: 10/02/20 09:36 Dose: 25 mls/hr Documented by: Sodium Chloride (Normal Saline) 1,000 mls @ 75 mls/hr IV ASDIRECTED [facility] Stop: 10/03/20 20:00 Last Admin: 10/03/20 08:55 Dose: 75 mls/hr Documented by: Sodium Chloride (Normal Saline) 76 mls @ 3 mls/sec IV ONETIME ONE Stop: 10/04/20 11:01 Last Admin: 10/04/20 12:57 Dose: 3 mls/sec Documented by: Iopamidol (Iopamidol 612 Mg/Ml 150 Ml Bottle) 112 ml IV . DIRECTED [facility] Stop: 10/04/20 11:00 Last Admin: 10/04/20 12:58 Dose: 112 ml Documented by: Carvedilol 25mg Tabs ( Own Med ) 25 each PO BIDMEALS [facility] Last Admin: 10/01/20 21:25 Dose: 25 each Documented by: Simvastatin 20mg Tab ( Own Med ) 10 each PO BEDTIME [facility] Last Admin: 10/01/20 21:25 Dose: 10 each Documented by: Carvedilol 25mg Tabs ( Own Med ) 0 each PO BIDMEALS [facility] Last Admin: 10/02/20 08:53 Dose: 1 each Documented by: Ondansetron HCl (Ondansetron 4 Mg/2 Ml Sdv) 4 mg IVPUSH ONETIME ONE Stop: 10/01/20 14:48 Last Admin: 10/01/20 15:04 Dose: 4 mg Documented by: Pantoprazole Sodium (Pantoprazole 40 Mg Vial) 40 mg IVPUSH Q12H [facility] Last Admin: 10/03/20 05:47 Dose: 40 mg Documented by: Lisinopril 40mg Tab ((Ptom)) 1 each PO DAILY [facility] Last Admin: 10/02/20 08:53 Dose: 1 each Documented by: Potassium Chloride (Potassium Chloride 20 Meq Tab.Er) 40 meq PO ONETIME ONE Stop: 10/02/20 08:31 Last Admin: 10/02/20 08:55 Dose: 40 meq Documented by: Potassium Chloride (Potassium Chloride 20 Meq Tab.Er) 40 meq PO ONETIME ONE Stop: 10/04/20 14:01 Last Admin: 10/04/20 14:32 Dose: 40 meq Documented by: Sodium Chloride (Sodium Chloride 0.9% 10 Ml Syringe) 10 ml FLUSH ASDIRECTED PRN PRN Reason: Keep Vein Open Last Admin: 10/01/20 15:04 Dose: 10 ml Documented by: Sodium Chloride (Sodium Chloride 0.9% 10 Ml Syringe) 10 ml FLUSH ONETIME PRN PRN Reason: PER RADIOLOGY PROTOCOL Stop: 10/04/20 11:00 Last Admin: 10/04/20 12:57 Dose: 10 ml Documented by:
[2020-10-06 11:16] VITALS: BP 106/69; PULSE 63
== END 2020-10-06 13:05 | disposition home health service (06) | DRG 392 ==
LOC: JP.ED 13:57 → JP.MS 17:05 → OBSVTOIN 10-02 10:53
PROVIDERS: ADMIT Hospitalist; ATTEND Hospitalist
DX: A08.4 Viral intestinal infection, unspecified (principal); K52.9 Noninfective gastroenteritis and colitis, unspecified; E11.9 Type 2 diabetes mellitus without complications; I13.0 Hypertensive heart and chronic kidney disease with heart failure and stage 1 through stage 4 chronic kidney disease, or unspecified chronic kidney disease; N18.30 Chronic kidney disease, stage 3 unspecified; N17.9 Acute kidney failure, unspecified; E86.0 Dehydration; G30.9 Alzheimer's disease, unspecified; F02.80 Dementia in other diseases classified elsewhere, unspecified severity, without behavioral disturbance, psychotic disturbance, mood disturbance, and anxiety; H91.90 Unspecified hearing loss, unspecified ear; H54.7 Unspecified visual loss; E78.00 Pure hypercholesterolemia, unspecified; K57.90 Diverticulosis of intestine, part unspecified, without perforation or abscess without bleeding; I50.9 Heart failure, unspecified; R32 Unspecified urinary incontinence; J44.9 Chronic obstructive pulmonary disease, unspecified; Z85.51 Personal history of malignant neoplasm of bladder; Z88.8 Allergy status to other drugs, medicaments and biological substances; N40.1 Benign prostatic hyperplasia with lower urinary tract symptoms; N39.498 Other specified urinary incontinence; K21.9 Gastro-esophageal reflux disease without esophagitis; M19.90 Unspecified osteoarthritis, unspecified site; Z96.659 Presence of unspecified artificial knee joint; E11.22 Type 2 diabetes mellitus with diabetic chronic kidney disease; N18.32 Chronic kidney disease, stage 3b; Z88.6 Allergy status to analgesic agent; Z79.82 Long term (current) use of aspirin; Z79.84 Long term (current) use of oral hypoglycemic drugs; Z79.899 Other long term (current) drug therapy; Z86.16 Personal history of COVID-19; Z85.828 Personal history of other malignant neoplasm of skin; Z98.890 Other specified postprocedural states
CPT/HCPCS: 36415 ×2; 74018 ×2; 80048; 80053; 82947 ×3; 83605; 83735; 84484; 85025 ×2; 96374; 99285; A9270 ×8; C9113 ×2; J1650; J1815; J2405; J3475; J7030 ×3; J7120; 74177; 85027; 86140; 87046; 87899; 89055; Q9967

== ENCOUNTER 2020-10-17 16:12 | Inpatient (IN) | payer MEDICARE, BC ==
--- NOTE | 2020-10-17 16:42 | EDM.PDOC ---
ED HPI GENERAL MEDICAL PROBLEM - General Chief Complaint: Respiratory Problem Stated Complaint: LOW OXYGEN/VOMITTING Time Seen by Provider: 10/17/20 16:42 Source of Information: Reports: Patient, Family History Limitations: Reports: No Limitations - History of Present Illness INITIAL COMMENTS - FREE TEXT/NARRATIVE: 84-year-old male recently hospitalized for weakness and diarrhea, was seen in the clinic last week for continued cough and weakness and was diagnosed with pneumonia and started on antibiotics. He went into the walk-in clinic today because his did not think he was improving, he is still weak, not eating well, and his diarrhea is getting worse again. They took a brief look at him in the clinic, his systolic blood pressure was 95 and his O2 sats were 90, he looked like he was falling asleep and he felt he was too sick to breathe or so they sent him to the emergency room. He was not seen. On arrival he looks tired but is communicating normally, O2 sats are 92 to 94% on room air but he does have a raspy breath and looks very tired. He is afebrile. Blood pressure is 97 systolic. Onset: Unknown/Unsure Duration: Day(s): (Symptoms have been ongoing through the weekend) Associated Symptoms: Reports: Malaise, Shortness of Breath (Intermittent shortness of breath with cough, nonproductive), Weakness. Denies: Confusion, Chest Pain, Nausea/Vomiting - Related Data Allergies Allergy/AdvReac Type Severity Reaction Status Date / Time opium (anthroposophic) Allergy Unknown Hives Verified 10/01/20 14:35 [Opium (Anthroposophic)] tramadol Allergy Unknown Rash Verified 10/01/20 14:35 Home Meds: Home Meds Albuterol Sulfate [Albuterol Sulfate HFA] 2 puff INH Q6H PRN 06/04/13 [History] Furosemide 40 mg PO DAILY 06/04/13 [History] Lisinopril 40 mg PO DAILY 06/04/13 [History] amLODIPine Besylate [Amlodipine Besylate] 5 mg PO DAILY 06/04/13 [History] carvediloL [Carvedilol] 25 mg PO BID 06/04/13 [History] Donepezil HCl 1 tab PO BEDTIME 03/30/19 [History] Aspirin [Halfprin] 81 mg PO DAILY 11/24/19 [History] Simvastatin [Zocor] 20 mg PO BEDTIME 11/24/19 [History] Cefuroxime Axetil [Ceftin] 500 mg PO BID 10/17/20 [History] Dulaglutide [Trulicity] 1.5 mg SQ WEEKLY 10/17/20 [History] Ipratropium/Albuterol Sulfate [Iprat-Albut 0.5-3(2.5) MG/3 ML] 3 ml IH Q4H PRN 10/17/20 [History] metFORMIN HCl [Metformin HCl ER] 500 mg PO DAILY 10/17/20 [History] Past Medical History HEENT History: Reports: Hard of Hearing, Impaired Vision Cardiovascular History: Reports: Heart Failure, High Cholesterol, Hypertension Respiratory History: Reports: Asthma, COPD, Other (See Below) Other Respiratory History: postive COVID-19 TEST 11/23 Gastrointestinal History: Reports: Bowel Obstruction, Diverticulosis, GERD Genitourinary History: Reports: BPH, Urinary Incontinence, Other (See Below) Other Genitourinary History: bladder cancer Musculoskeletal History: Reports: Arthritis Neurological History: Reports: None Endocrine/Metabolic History: Reports: Diabetes, Type II, Obesity/BMI 30+ Hematologic History: Reports: Blood Transfusion(s) Oncologic (Cancer) History: Reports: Bladder, Other (See Below) Other Oncologic History: skin cancer Dermatologic History: Reports: None - Infectious Disease History Infectious Disease History: Reports: Other (See Below) Other Infectious Disease History: COVID-19 - Past Surgical History HEENT Surgical History: Reports: Tonsillectomy Cardiovascular Surgical History: Reports: None Respiratory Surgical History: Reports: None GI Surgical History: Reports: Colon, Colonoscopy Male Surgical History: Reports: Cystectomy, Prostatectomy, Other (See Below) Other Male Surgeries/Procedures: partial Endocrine Surgical History: Reports: None Neurological Surgical History: Reports: None Musculoskeletal Surgical History: Reports: Knee Replacement, Shoulder Surgery Oncologic Surgical History: Reports: None Social & Family History - Family History Family Medical History: No Pertinent Family History - Tobacco Use Tobacco Use Status *Q: Former Tobacco User Used Tobacco, but Quit: Yes Month/Year Tobacco Last Used: many years ago - Caffeine Use Caffeine Use: Reports: Coffee - Recreational Drug Use Recreational Drug Use: No - Living Situation & Occupation Living situation: Reports: Occupation: Retired (lives with in [place], [place].) ED ROS GENERAL - Review of Systems Review Of Systems: See Below Constitutional: Reports: Malaise, Decreased Appetite. Denies: Fever, Chills HEENT: Denies: Eye Pain, Throat Pain Respiratory: Reports: Shortness of Breath, Cough. Denies: Sputum Cardiovascular: Denies: Chest Pain, Palpitations Endocrine: Reports: Fatigue (Falls asleep easily) ED EXAM, GENERAL - Physical Exam Exam: See Below Exam Limited By: No Limitations General Appearance: Alert, No Apparent Distress Eye Exam: Bilateral Eye: Normal Inspection Head: Atraumatic Neck: Supple, Non-Tender Respiratory/Chest: Wheezing (Expiratory wheezes are heard in the upper lung [place], especially anteriorly) Cardiovascular: Regular Rate, Rhythm GI/Abdominal: Soft, Tender (Reacts with some mild discomfort to palpation diffusely, no focal tenderness or rebound tenderness) Extremities: Normal Inspection. No: Pedal Edema Neurological: Alert, Oriented, Slow to Respond Psychiatric: Depressed Mood, Flat Affect Skin Exam: Warm, Dry Course - Vital Signs Last Recorded V/S: Last Vital Signs Temp 97.0 F 10/18/20 02:11 Pulse 78 10/18/20 02:11 Resp 17 10/17/20 22:59 BP 97/47 L 10/18/20 02:11 Pulse Ox 91 L 10/18/20 02:11 - Orders/Labs/Meds Orders: Active Orders 24 hr Category Date Time Status Chest 2V [CR] Routine Exams 10/17/20 16:53 Taken Medication Orders Acetaminophen (Acetaminophen 325 Mg Tab) 650 mg PO Q4H PRN PRN Reason: Pain (Mild 1-3)/fever Albuterol (Albuterol 0.083% 2.5 Mg/3 Ml Neb Soln) 2.5 mg NEB Q4H PRN PRN Reason: Shortness Of Breath/wheezing Albuterol/Ipratropium (Albuterol/Ipratropium 3.0-0.5 Mg/3 Ml Neb Soln) 3 ml NEB QIDRT [facility] Last Admin: 10/18/20 07:16 Dose: 3 ml Documented by: Admin: 10/17/20 20:37 Dose: 3 ml Documented by: HANK Amlodipine Besylate (Amlodipine 5 Mg Tab) 5 mg PO DAILY [facility] Carvedilol (Carvedilol 12.5 Mg Tab) 25 mg PO BID [facility] Last Admin: 10/17/20 20:37 Dose: 25 mg Documented by: HANK Donepezil HCl (Donepezil 10 Mg Tab) 10 mg PO BEDTIME [facility] Last Admin: 10/17/20 20:38 Dose: 10 mg Documented by: HANK Enoxaparin Sodium (Enoxaparin 40 Mg/0.4 Ml Syringe) 40 mg SUBCUT QPM [facility] Furosemide (Furosemide 40 Mg Tab) 40 mg PO DAILY [facility] Guaifenesin (Guaifenesin 100 Mg/5 Ml Soln Ml (118 Ml Bottle)) 100 mg PO Q4H PRN PRN Reason: Cough Guaifenesin/Codeine Phosphate (Codeine/Guaifenesin 10-100 Mg/5 Ml Syrup 5 Ml Cup) 10 ml PO Q6H PRN PRN Reason: Cough Sodium Chloride (Normal Saline) 1,000 mls @ 125 mls/hr IV ASDIRECTED [facility] Last Admin: 10/17/20 20:30 Dose: 125 mls/hr Documented by: HANK Ceftriaxone Sodium 1 gm/ (Sodium Chloride) 50 mls @ 100 mls/hr IV Q24H [facility] Last Admin: 10/17/20 20:36 Dose: 100 mls/hr Documented by: HANK Insulin Human Lispro (Insulin Lispro 100 Unit/Ml 3 Ml Kwikpen) 0 unit SUBCUT QIDACANDBED [facility]; Protocol Last Admin: 10/17/20 21:20 Dose: Not Given Documented by: YANDELOSTA Lisinopril (Lisinopril 20 Mg Tab) 40 mg PO DAILY [facility] Melatonin (Melatonin 3 Mg Tab) 6 mg PO BEDTIME PRN PRN Reason: Insomnia Last Admin: 10/17/20 20:37 Dose: 6 mg Documented by: HANK Methylprednisolone Sodium Succinate (Methylprednisolone Sodium Succinate 40 Mg/1 Ml Sdv) 40 mg IVPUSH Q6H [facility] Ondansetron HCl (Ondansetron 4 Mg Tab.Dis) 4 mg PO Q6H PRN PRN Reason: Nausea able to take PO Pantoprazole Sodium (Pantoprazole 40 Mg Vial) 40 mg IV BEDTIME [facility] Last Admin: 10/17/20 20:37 Dose: 40 mg Documented by: HANK Labs: Laboratory Tests 10/17/20 10/17/20 10/17/20 Range/Units 16:58 17:18 17:18 WBC 7.7 (4.5-11.0) K/uL RBC 4.54 (4.30-5.90) M/uL Hgb 13.4 (12.0-15.0) g/dL Hct 39.9 L (40.0-54.0) % MCV 88 (80-98) fL MCH 30 (27-31) pg MCHC 34 (32-36) % Plt Count 276 (150-400) K/uL Neut % (Auto) 44.0 (36-66) % Lymph % (Auto) 26.3 (24-44) % [place] % (Auto) 13.1 H (2-6) % Eos % (Auto) 14.9 H (2-4) % Baso % (Auto) 1.7 H (0-1) % Puncture Site ABG pH (7.350-7.450) ABG pCO2 (35.0-42.0) mmHg ABG pO2 (75.0-100.0) mmHg ABG HCO3 (22.0-26.0) mmol/L ABG Total CO2 (23.0-27.0) mmol/L ABG O2 Saturation (95.0-98.0) % ABG O2 Content (15.0-23.0) %vol ABG Base Excess mm/L ABG Hemoglobin (13.5-18.0) g/dL ABG Oxyhemoglobin % ABG Carboxyhemoglobin (0.0-1.6) % ABG Methemoglobin % Neel Test O2 Delivery Device Sodium 138 L (140-148) mmol/L Potassium 3.9 (3.6-5.2) mmol/L Chloride 101 (100-108) mmol/L Carbon Dioxide 28 (21-32) mmol/L Anion Gap 12.9 (5.0-14.0) mmol/L BUN 23 H D (7-18) mg/dL Creatinine 1.3 (0.8-1.3) mg/dL Est Cr Clr Drug Dosing 38.85 mL/min Estimated GFR (MDRD) 53 L (>60) Glucose 132 H (74-106) mg/dL Calcium 8.6 (8.5-10.1) mg/dL Total Bilirubin 0.4 (0.2-1.0) mg/dL AST 18 D (15-37) U/L ALT 20 (12-78) U/L Alkaline Phosphatase 64 (46-116) U/L Total Protein 6.8 (6.4-8.2) g/dL Albumin 2.8 L (3.4-5.0) g/dL Globulin 4.0 H (2.3-3.5) g/dL Albumin/Globulin Ratio 0.7 L (1.2-2.2) SARS CoV-2 RNA Rapid ALFRED Negative 10/17/20 Range/Units 17:34 WBC (4.5-11.0) K/uL RBC (4.30-5.90) M/uL Hgb (12.0-15.0) g/dL Hct (40.0-54.0) % MCV (80-98) fL MCH (27-31) pg MCHC (32-36) % Plt Count (150-400) K/uL Neut % (Auto) (36-66) % Lymph % (Auto) (24-44) % [place] % (Auto) (2-6) % Eos % (Auto) (2-4) % Baso % (Auto) (0-1) % Puncture Site Right radial ABG pH 7.368 (7.350-7.450) ABG pCO2 41.3 (35.0-42.0) mmHg ABG pO2 59.6 L (75.0-100.0) mmHg ABG HCO3 23.2 (22.0-26.0) mmol/L ABG Total CO2 20.7 L (23.0-27.0) mmol/L ABG O2 Saturation 89.8 L (95.0-98.0) % ABG O2 Content 17.0 (15.0-23.0) %vol ABG Base Excess -1.5 mm/L ABG Hemoglobin 13.7 (13.5-18.0) g/dL ABG Oxyhemoglobin 88.1 % ABG Carboxyhemoglobin 1.0 (0.0-1.6) % ABG Methemoglobin 0.9 % Neel Test Passed O2 Delivery Device Room air Sodium (140-148) mmol/L Potassium (3.6-5.2) mmol/L Chloride (100-108) mmol/L Carbon Dioxide (21-32) mmol/L Anion Gap (5.0-14.0) mmol/L BUN (7-18) mg/dL Creatinine (0.8-1.3) mg/dL Est Cr Clr Drug Dosing mL/min Estimated GFR (MDRD) (>60) Glucose (74-106) mg/dL Calcium (8.5-10.1) mg/dL Total Bilirubin (0.2-1.0) mg/dL AST (15-37) U/L ALT (12-78) U/L Alkaline Phosphatase (46-116) U/L Total Protein (6.4-8.2) g/dL Albumin (3.4-5.0) g/dL Globulin (2.3-3.5) g/dL Albumin/Globulin Ratio (1.2-2.2) SARS CoV-2 RNA Rapid ALFRED Meds: Medications Generic Name Dose Route Start Last Admin Trade Name Freq PRN Reason Stop Dose Admin Acetaminophen 650 mg 10/17/20 19:57 Acetaminophen 325 Mg Tab PO Q4H PRN Pain (Mild 1-3)/fever Albuterol 2.5 mg 10/17/20 19:57 Albuterol 0.083% 2.5 Mg/3 Ml Neb Soln NEB Q4H PRN Shortness Of Breath/wheezing Albuterol/Ipratropium 3 ml 10/17/20 21:00 10/18/20 07:16 Albuterol/Ipratropium 3.0-0.5 Mg/3 Ml Neb Soln NEB 3 ml QIDRT YANDEL Administration Amlodipine Besylate 5 mg 10/18/20 09:00 Amlodipine 5 Mg Tab PO DAILY YANDEL Carvedilol 25 mg 10/17/20 21:00 10/17/20 20:37 Carvedilol 12.5 Mg Tab PO 25 mg BID YANDEL Administration Donepezil HCl 10 mg 10/17/20 21:00 10/17/20 20:38 Donepezil 10 Mg Tab PO 10 mg BEDTIME YANDEL Administration Enoxaparin Sodium 40 mg 10/18/20 17:00 Enoxaparin 40 Mg/0.4 Ml Syringe SUBCUT QPM YANDEL Furosemide 40 mg 10/18/20 09:00 Furosemide 40 Mg Tab PO DAILY YANDEL Guaifenesin 100 mg 10/17/20 19:57 Guaifenesin 100 Mg/5 Ml Soln Ml (118 Ml Bottle) PO Q4H PRN Cough Guaifenesin/Codeine Phosphate 10 ml 10/17/20 19:57 Codeine/Guaifenesin 10-100 Mg/5 Ml Syrup 5 Ml Cup PO Q6H PRN Cough Sodium Chloride 1,000 mls @ 125 mls/hr 10/17/20 19:57 10/17/20 20:30 Normal Saline IV 125 mls/hr ASDIRECTED YANDEL Administration Ceftriaxone Sodium 1 gm/ 50 mls @ 100 mls/hr 10/17/20 20:00 10/17/20 20:36 Sodium Chloride IV 100 mls/hr Q24H YANDEL Administration Insulin Human Lispro 0 unit 10/17/20 20:00 10/17/20 21:20 Insulin Lispro 100 Unit/Ml 3 Ml Kwikpen SUBCUT Not Given QIDACANDBED [facility] Protocol Lisinopril 40 mg 10/18/20 09:00 Lisinopril 20 Mg Tab PO DAILY YANDEL Melatonin 6 mg 10/17/20 19:57 10/17/20 20:37 Melatonin 3 Mg Tab PO 6 mg BEDTIME PRN Administration Insomnia Methylprednisolone Sodium Succinate 40 mg 10/18/20 10:00 Methylprednisolone Sodium Succinate 40 Mg/1 Ml Sdv IVPUSH Q6H YANDEL Ondansetron HCl 4 mg 10/17/20 19:57 Ondansetron 4 Mg Tab.Dis PO Q6H PRN Nausea able to take PO Pantoprazole Sodium 40 mg 10/17/20 21:00 10/17/20 20:37 Pantoprazole 40 Mg Vial IV 40 mg BEDTIME YANDEL Administration Discontinued Medications Generic Name Dose Route Start Last Admin Trade Name Freq PRN Reason Stop Dose Admin Enoxaparin Sodium 40 mg 10/17/20 19:57 10/17/20 20:36 Enoxaparin 40 Mg/0.4 Ml Syringe SUBCUT 40 mg DAILY YANDEL Administration Sodium Chloride 1,000 mls @ 500 mls/hr 10/17/20 17:45 10/17/20 17:48 Normal Saline IV 500 mls/hr ASDIRECTED YANDEL Administration Methylprednisolone Sodium Succinate 40 mg 10/17/20 20:00 10/18/20 02:20 Methylprednisolone Sodium Succinate 40 Mg/1 Ml Sdv IVPUSH 40 mg Q6H YANDEL Administration - Re-Assessments/Exams Free Text/Narrative Re-Assessment/Exam: 10/17/20 17:39 Had a long discussion with his primary provider who saw him 3 days ago, he felt there was bilateral pneumonias. His current chest x-ray looks like there is a small infiltrate on the left base but no significant infiltrates so the antibiotic therapy may be helping. He also felt the Trulicity being restarted is probably what is causing his diarrhea to flareup again. CBC, CMP, Covid and ABGs were ordered and are pending. Patient remained stable, comfortable but tired. O2 saturations were 92 to 94%, he remained moderately hypotensive with a systolic in the 90s. After the chest x-ray was seen, an IV was started and some IV fluids were given at 500 cc an hour. Departure - Departure Time of Disposition: 19:54 Disposition: Admitted As Inpatient 67 Clinical Impression: Generalized weakness Diarrhea Qualifiers: Diarrhea type: unspecified type Qualified Code(s): R19.7 - Diarrhea, unspecified Hypotension Qualifiers: Hypotension type: unspecified hypotension type Qualified Code(s): I95.9 - Hypotension, unspecified Pneumonia Qualifiers: Pneumonia type: due to unspecified organism Laterality: left Lung location: lower lobe of lung Qualified Code(s): J18.9 - Pneumonia, unspecified organism - Discharge Information Sepsis Event Note (ED) - Evaluation Sepsis Screening Result: No Definite Risk - My Orders Last 24 Hours: My Active Orders 10/17/20 16:53 Chest 2V [CR] Routine - Assessment/Plan Last 24 Hours: My Active Orders 10/17/20 16:53 Chest 2V [CR] Routine
[2020-10-17] MEDS ORDERED: Sodium Chloride 0.9% 1,000 ML IV SCH ×2 (17:45→19:57)
--- NOTE | 2020-10-17 19:27 | PCM.HP.2 ---
H&P History of Present Illness - General Date of Service: 10/17/20 Admit Problem/Dx: Admission Diagnosis/Problem Admission Diagnosis/Problem Pneumonia Source of Information: Patient, Family (), Provider History Limitations: Reports: Physical Impairment (weakness-very tired, gives report of symptoms) - History of Present Illness Initial Comments - Free Text/Narative: Chief complaint: Shortness of Breath from ER Note today 10/17/20: 84-year-old male recently hospitalized for weakness and diarrhea, was seen in the clinic last week for continued cough and weakness and was diagnosed with pneumonia and started on antibiotics. He went into the walk-in clinic today because his did not think he was improving, he is still weak, not eating well, and his diarrhea is getting worse again. They took a brief look at him in the clinic, his systolic blood pressure was 95 and his O2 sats were 90, he looked like he was falling asleep and he felt he was too sick to breathe or so they sent him to the emergency room. He was not seen. On arrival he looks tired but is communicating normally, O2 sats are 92 to 94% on room air but he does have a raspy breath and looks very tired. He is afebrile. Blood pressure is 97 systolic. Onset: Unknown/Unsure Duration: Day(s): (Symptoms have been ongoing through the weekend) Associated Symptoms: Reports: Malaise, Shortness of Breath (Intermittent shortness of breath with cough, nonproductive), Weakness. Denies: Confusion, Chest Pain, Nausea/Vomiting Had a long discussion with his primary provider who saw him 3 days ago, he felt there was bilateral pneumonias. His current chest x-ray looks like there is a small infiltrate on the left base but no significant infiltrates so the antibiotic therapy may be helping. He also felt the Trulicity being restarted is probably what is causing his diarrhea to flareup again. CBC, CMP, Covid and ABGs were ordered and are pending. Patient remained stable, comfortable but t ired. O2 saturations were 92 to 94%, he remained moderately hypotensive with a systolic in the 90s. After the chest x-ray was seen, an IV was started and some IV fluids were given at 500 cc an hour. Onset of Symptoms: Reports: Gradual Duration of Symptoms: Reports: Day(s):, Getting Worse Location: Reports: Generalized Quality: Reports: Same as Previous Episode Severity: Moderate Improves with: Reports: Rest Worsens with: Reports: Movement Associated Symptoms: Reports: Cough, Fever/Chills (no fever, chills only), Loss of Appetite, Malaise, Shortness of Breath, Weakness, Other (diarrhea-liquid to water stool >5 per day for the past two days) - Related Data Allergies/Adverse Reactions: Allergies Allergy/AdvReac Type Severity Reaction Status Date / Time opium (anthroposophic) Allergy Unknown Hives Verified 10/01/20 14:35 [Opium (Anthroposophic)] tramadol Allergy Unknown Rash Verified 10/01/20 14:35 Home Medications: Home Meds Albuterol Sulfate [Albuterol Sulfate HFA] 2 puff INH Q6H PRN 06/04/13 [History] Furosemide 40 mg PO DAILY 06/04/13 [History] Glimepiride 2 mg PO DAILY 06/04/13 [History] Lisinopril 40 mg PO DAILY 06/04/13 [History] amLODIPine Besylate [Amlodipine Besylate] 5 mg PO DAILY 06/04/13 [History] carvediloL [Carvedilol] 25 mg PO BID 06/04/13 [History] metFORMIN [Glucophage] 1,000 mg PO BID 06/04/13 [History] Donepezil HCl 1 tab PO BEDTIME 03/30/19 [History] Albuterol [Proventil Neb Soln] 2.5 mg .XX Q6H 11/24/19 [History] Aspirin [Halfprin] 81 mg PO DAILY 11/24/19 [History] Simvastatin [Zocor] 20 mg PO BEDTIME 11/24/19 [History] Cefuroxime Axetil [Ceftin] 500 mg PO BID 10/17/20 [History] Past Medical History HEENT History: Reports: Hard of Hearing, Impaired Vision Cardiovascular History: Reports: Heart Failure, High Cholesterol, Hypertension Respiratory History: Reports: Asthma, COPD, Other (See Below) Other Respiratory History: postive COVID-19 TEST 11/23 Gastrointestinal History: Reports: Bowel Obstruction, Diverticulosis, GERD Genitourinary History: Reports: BPH, Urinary Incontinence, Other (See Below) Other Genitourinary History: bladder cancer Musculoskeletal History: Reports: Arthritis Neurological History: Reports: None Endocrine/Metabolic History: Reports: Diabetes, Type II, Obesity/BMI 30+ Hematologic History: Reports: Blood Transfusion(s) Oncologic (Cancer) History: Reports: Bladder, Other (See Below) Other Oncologic History: skin cancer Dermatologic History: Reports: None - Infectious Disease History Infectious Disease History: Reports: Other (See Below) Other Infectious Disease History: COVID-19 - Past Surgical History HEENT Surgical History: Reports: Tonsillectomy Cardiovascular Surgical History: Reports: None Respiratory Surgical History: Reports: None GI Surgical History: Reports: Colon, Colonoscopy Male Surgical History: Reports: Cystectomy, Prostatectomy, Other (See Below) Other Male Surgeries/Procedures: partial Endocrine Surgical History: Reports: None Neurological Surgical History: Reports: None Musculoskeletal Surgical History: Reports: Knee Replacement, Shoulder Surgery Oncologic Surgical History: Reports: None Social & Family History - Family History Family Medical History: No Pertinent Family History - Tobacco Use Tobacco Use Status *Q: Former Tobacco User Used Tobacco, but Quit: Yes Month/Year Tobacco Last Used: many years ago - Caffeine Use Caffeine Use: Reports: Coffee - Recreational Drug Use Recreational Drug Use: No - Living Situation & Occupation Living situation: Reports: Occupation: Retired (lives with in [place], [place].) H&P Review of Systems - Review of Systems: Review Of Systems: See Below General: Reports: Chills, Malaise, Weakness ( reports difficulty walking- has been using her walker to ambulate in the home.), Fatigue, Decreased Appetite HEENT: Reports: Glasses Pulmonary: Reports: Shortness of Breath, Wheezing, Pleuritic Chest Pain, Cough Cardiovascular: Reports: Edema (lower legs), Blood Pressure Problem (low blood pressure today in Clinic) Gastrointestinal: Reports: Diarrhea (liquid to watery stool >5 for the past 2 days), Stool Incontinence Genitourinary: Reports: Incontinence Musculoskeletal: Reports: Other (bones and muscle aches) Skin: Reports: No Symptoms Psychiatric: Reports: Other (Alzheimers dementia) Neurological: Reports: Pre-Existing Deficit Hematologic/Lymphatic: Reports: No Symptoms Immunologic: Reports: No Symptoms Exam - Exam Exam: See Below - Vital Signs Vital Signs: Last Vital Signs Temp 97 F 10/17/20 16:31 Pulse 63 10/17/20 18:53 Resp 16 10/17/20 16:31 BP 94/56 L 10/17/20 18:53 Pulse Ox 90 L 10/17/20 18:53 Weight: 175 lb - Exam Quality Assessment: DVT Prophylaxis General: Alert, Cooperative, Other (fragile elderly male, neat, well groomed, polite. appears fatigue) HEENT: PERRLA, Glasses Neck: Supple, Trachea Midline Lungs: Decreased Breath Sounds, Rhonchi, Wheezing (bilateral upper chest) Cardiovascular: Regular Rate, Regular Rhythm, Normal S1, Normal S2 GI/Abdominal Exam: Normal Bowel Sounds, Soft, Non-Tender, Distended (Male) Exam: Deferred Rectal (Males) Exam: Deferred Back Exam: Normal Inspection, Full Range of Motion Extremities: Normal Range of Motion, Non-Tender, Pedal Edema (1+ pitting edema of lower legs.) Peripheral Pulses: 2+: Radial (L), Radial (R) Skin: Warm, Dry, Intact Neurological: Reflexes Equal Bilateral, Strength Equal Bilateral Neuro Extensive - Mental Status: Alert, Normal Mood/Affect Psychiatric: Alert, Normal Affect, Normal Mood - Patient Data Lab Results Last 24 hrs: Laboratory Results - last 24 hr 10/17/20 10/17/20 10/17/20 Range/Units 16:58 17:18 17:18 WBC 7.7 (4.5-11.0) K/uL RBC 4.54 (4.30-5.90) M/uL Hgb 13.4 (12.0-15.0) g/dL Hct 39.9 L (40.0-54.0) % MCV 88 (80-98) fL MCH 30 (27-31) pg MCHC 34 (32-36) % Plt Count 276 (150-400) K/uL Neut % (Auto) 44.0 (36-66) % Lymph % (Auto) 26.3 (24-44) % [place] % (Auto) 13.1 H (2-6) % Eos % (Auto) 14.9 H (2-4) % Baso % (Auto) 1.7 H (0-1) % Puncture Site ABG pH (7.350-7.450) ABG pCO2 (35.0-42.0) mmHg ABG pO2 (75.0-100.0) mmHg ABG HCO3 (22.0-26.0) mmol/L ABG Total CO2 (23.0-27.0) mmol/L ABG O2 Saturation (95.0-98.0) % ABG O2 Content (15.0-23.0) %vol ABG Base Excess mm/L ABG Hemoglobin (13.5-18.0) g/dL ABG Oxyhemoglobin % ABG Carboxyhemoglobin (0.0-1.6) % ABG Methemoglobin % Neel Test O2 Delivery Device Sodium 138 L (140-148) mmol/L Potassium 3.9 (3.6-5.2) mmol/L Chloride 101 (100-108) mmol/L Carbon Dioxide 28 (21-32) mmol/L Anion Gap 12.9 (5.0-14.0) mmol/L BUN 23 H D (7-18) mg/dL Creatinine 1.3 (0.8-1.3) mg/dL Est Cr Clr Drug Dosing 38.85 mL/min Estimated GFR (MDRD) 53 L (>60) Glucose 132 H (74-106) mg/dL Calcium 8.6 (8.5-10.1) mg/dL Total Bilirubin 0.4 (0.2-1.0) mg/dL AST 18 D (15-37) U/L ALT 20 (12-78) U/L Alkaline Phosphatase 64 (46-116) U/L Total Protein 6.8 (6.4-8.2) g/dL Albumin 2.8 L (3.4-5.0) g/dL Globulin 4.0 H (2.3-3.5) g/dL Albumin/Globulin Ratio 0.7 L (1.2-2.2) SARS CoV-2 RNA Rapid ALFRED Negative 10/17/20 Range/Units 17:34 WBC (4.5-11.0) K/uL RBC (4.30-5.90) M/uL Hgb (12.0-15.0) g/dL Hct (40.0-54.0) % MCV (80-98) fL MCH (27-31) pg MCHC (32-36) % Plt Count (150-400) K/uL Neut % (Auto) (36-66) % Lymph % (Auto) (24-44) % [place] % (Auto) (2-6) % Eos % (Auto) (2-4) % Baso % (Auto) (0-1) % Puncture Site Right radial ABG pH 7.368 (7.350-7.450) ABG pCO2 41.3 (35.0-42.0) mmHg ABG pO2 59.6 L (75.0-100.0) mmHg ABG HCO3 23.2 (22.0-26.0) mmol/L ABG Total CO2 20.7 L (23.0-27.0) mmol/L ABG O2 Saturation 89.8 L (95.0-98.0) % ABG O2 Content 17.0 (15.0-23.0) %vol ABG Base Excess -1.5 mm/L ABG Hemoglobin 13.7 (13.5-18.0) g/dL ABG Oxyhemoglobin 88.1 % ABG Carboxyhemoglobin 1.0 (0.0-1.6) % ABG Methemoglobin 0.9 % Neel Test Passed O2 Delivery Device Room air Sodium (140-148) mmol/L Potassium (3.6-5.2) mmol/L Chloride (100-108) mmol/L Carbon Dioxide (21-32) mmol/L Anion Gap (5.0-14.0) mmol/L BUN (7-18) mg/dL Creatinine (0.8-1.3) mg/dL Est Cr Clr Drug Dosing mL/min Estimated GFR (MDRD) (>60) Glucose (74-106) mg/dL Calcium (8.5-10.1) mg/dL Total Bilirubin (0.2-1.0) mg/dL AST (15-37) U/L ALT (12-78) U/L Alkaline Phosphatase (46-116) U/L Total Protein (6.4-8.2) g/dL Albumin (3.4-5.0) g/dL Globulin (2.3-3.5) g/dL Albumin/Globulin Ratio (1.2-2.2) SARS CoV-2 RNA Rapid ALFRED Result Diagrams: 10/17/20 17:18 10/17/20 17:18 Sepsis Event Note - Evaluation Sepsis Screening Result: No Definite Risk - Focused Exam Vital Signs: Vital Signs Temp Pulse Resp BP Pulse Ox 10/17/20 18:53 63 94/56 L 90 L 10/17/20 17:49 96 86/53 L 91 L 10/17/20 16:31 97 F 67 16 93/59 L 90 L - Problem List (1) Pneumonia SNOMED Code(s): 370227813 ICD Code: J18.9 - PNEUMONIA, UNSPECIFIED ORGANISM Status: Acute Priority: High Current Visit: Yes Qualifiers: Pneumonia type: due to unspecified organism Laterality: left Lung location: lower lobe of lung Qualified Code(s): J18.9 - Pneumonia, unspecified organism (2) COLD, Chronic obstructive lung disease SNOMED Code(s): 21737431 ICD Code: J44.9 - CHRONIC OBSTRUCTIVE PULMONARY DISEASE, UNSPECIFIED Status: Chronic Priority: High Current Visit: Yes (3) Diarrhea SNOMED Code(s): 93096311 ICD Code: R19.7 - DIARRHEA, UNSPECIFIED Status: Acute Priority: High Current Visit: Yes Qualifiers: Diarrhea type: unspecified type Qualified Code(s): R19.7 - Diarrhea, unspecified (4) Generalized weakness SNOMED Code(s): 66487235 ICD Code: R53.1 - WEAKNESS Status: Acute Priority: High Current Visit: Yes (5) Alzheimer's dementia without behavioral disturbance SNOMED Code(s): 95188150 ICD Code: G30.9 - ALZHEIMER'S DISEASE, UNSPECIFIED; F02.80 - DEMENTIA IN OTH DISEASES CLASSD ELSWHR W/O BEHAVRL DISTURB Status: Chronic Priority: High Current Visit: Yes Qualifiers: Alzheimer's disease onset: late-onset Qualified Code(s): G30.1 - Alzheimer's disease with late onset; F02.80 - Dementia in other diseases classified elsewhere without behavioral disturbance (6) Diabetes mellitus type 2 SNOMED Code(s): 53787313 ICD Code: E11.9 - TYPE 2 DIABETES MELLITUS WITHOUT COMPLICATIONS Status: Chronic Priority: Low Current Visit: Yes (7) Essential hypertension SNOMED Code(s): 34952440 ICD Code: I10 - ESSENTIAL (PRIMARY) HYPERTENSION Status: Chronic Priority: Low Current Visit: Yes (8) Hypotension SNOMED Code(s): 37822123 ICD Code: I95.9 - HYPOTENSION, UNSPECIFIED Status: Acute Priority: High Current Visit: Yes Qualifiers: Hypotension type: unspecified hypotension type Qualified Code(s): I95.9 - Hypotension, unspecified Problem List Initiated/Reviewed/Updated: Yes Orders Last 24hrs: Active Orders 24 hr Category Date Time Status Patient Status Manage Transfer [TRANSFER] Routine ADT 10/17/20 19:11 Active Chest 2V [CR] Routine Exams 10/17/20 16:53 Taken Sodium Chloride 0.9% [Normal Saline] 1,000 ml Med 10/17/20 17:45 Active IV ASDIRECTED Resuscitation Status Routine Resus Stat 10/17/20 19:13 Ordered Medication Orders Sodium Chloride (Normal Saline) 1,000 mls @ 500 mls/hr IV ASDIRECTED YANDEL Last Admin: 10/17/20 17:48 Dose: 500 mls/hr Documented by: ACE Assessment/Plan Comment:: ASSESSMENT AND PLAN - PNEUMONIA, COPD, DIARRHEA, GENERALIZED WEAKNESS, ALZHEIMER'S DISEASE, DIABETES TYPE 2, HYPERTENSION PNEUMONIA WITH COPD Left lower lobe pneumonia-complicated by COPD. Small left lung infiltrate noted today on chest xray. He was seen by Primary Care Provider on Saturday and diagnosed with pneumonia. Started of Ceftin 500 mg po BID- today is day 4 of antibiotics. -Antibiotic coverage with IV ceftriaxone 1 gram every 24 hours -Supplement oxygen to keep saturation >92 % -IV Solu-medrol 40 mg IV every 6 hours -albuterol nebulizer every 4 hours as needed for shortness of breath -schedule [id number] every 6 hours -Robitussin AC 10 ml every 4 hours or Robitussin 10 ml every 4 hours as needed for cough -am labs CBC, BMP -Imaging Chest xray in am Diarrhea- this is thought to be caused by medication reaction to Trulicity- last dose on Saturday10/15/2020 -monitor -IV fluids -am labs BMP Generalized weakness- reports has in home Physical Therapy, he has gotten weaker with the past few illness -pressure reduction mattress -consult PT -consult to OT Alzheimer's dementia -Donepezil 10 mg at bedtime -monitor for safety Hypotension with diagnosis of Hypertension- hold medication for systolic blood pressure <90 -IV fluids given one liter in ER, will continue Normal Saline 125ml/hr over night then reassess -Continue outpatients- hold for low blood pressure -PO furosemide 40 mg daily- next due at 0900 -Cardiac monitoring Type 2 diabetes mellitus-oral mediation -hold metformin and Glimepiride -blood glucose testing before meal and at bedtime -low dose sliding scale insulin coverage Maintenance issues - -DVT prophylaxis-Lovenox 30 mg subcut daily -GI prophylaxis-IV Protonix 40 mg at bedtime -Nutrition-diabetic -Warner catheter-not indicated CODE STATUS-FULL CODE ADMISSION STATUS-patient will be admitted to inpatient status, expect at least a 2 night hospital stay for evaluation and management of problems as outlined above. At the time of this admission I do not reasonably expected evaluation and management of this problem will require more than a 96 hour hospital stay. DISPOSITION-anticipate discharge to home with after the hospital stay. Primary Care Provider- Dr. Sutherland Hospitalist: Chase Lynne M.D. - Mortality Measure Prognosis:: Good
[2020-10-17] MEDS ORDERED: Ondansetron 4 MG Tab.DIS PO PRN (19:57)
[2020-10-17] MEDS ORDERED: guaiFENesin 100 MG/5 ML Soln ML (118 ML Bottle) PO PRN (19:57)
[2020-10-17] MEDS ORDERED: Albuterol 0.083% 2.5 MG/3 ML Neb Soln NEB PRN (19:57)
[2020-10-17] MEDS ORDERED: Melatonin 3 MG Tab PO PRN (19:57)
[2020-10-17] MEDS ORDERED: Codeine/guaiFENesin 10-100 MG/5 ML Syrup 5 ML Cup PO PRN (19:57)
[2020-10-17] MEDS ORDERED: Acetaminophen 325 MG Tab PO PRN (19:57)
[2020-10-17] MEDS ORDERED: Enoxaparin 40 MG/0.4 ML Syringe SUBCUT SCH (19:57)
[2020-10-17] MEDS: cefTRIAXone 1 GM in Sodium Chloride 0.9% 50 ML IV SCH (20:36)
[2020-10-17] MEDS: Albuterol/Ipratropium 3.0-0.5 MG/3 ML Neb Soln NEB SCH (20:37)
[2020-10-17] MEDS: Carvedilol 12.5 MG Tab PO SCH (20:37)
[2020-10-17] MEDS: methylPREDNISolone Sodium Succinate 40 MG/1 ML SDV IVPUSH SCH (20:37)
[2020-10-17] MEDS: Donepezil 10 MG Tab PO SCH (20:38)
[2020-10-17] MEDS ORDERED: Pantoprazole 40 MG Vial IV SCH (21:00)
[2020-10-17] MEDS: Insulin Lispro 100 Unit/ML 3 ML KwikPen SUBCUT SCH (21:20)
[2020-10-18] MEDS: methylPREDNISolone Sodium Succinate 40 MG/1 ML SDV IVPUSH SCH (02:20)
[2020-10-18] MEDS: Albuterol/Ipratropium 3.0-0.5 MG/3 ML Neb Soln NEB SCH ×4 (07:16→20:19)
[2020-10-18] MEDS: Furosemide 40 MG Tab PO SCH (08:32)
[2020-10-18] MEDS: Insulin Lispro 100 Unit/ML 3 ML KwikPen SUBCUT SCH ×4 (08:32→21:44)
[2020-10-18] MEDS: Carvedilol 12.5 MG Tab PO SCH ×2 (08:33→20:11)
[2020-10-18] MEDS: metFORMIN 500 MG Tab PO SCH ×2 (08:35→17:13)
[2020-10-18] MEDS ORDERED: Lisinopril 20 MG Tab PO SCH (09:00)
[2020-10-18] MEDS ORDERED: amLODIPine 5 MG Tab PO SCH (09:00)
[2020-10-18] MEDS ORDERED: Non-Formulary Medication 1 Each (Metformin Hcl [Metformin Hcl Er] 500 MG Tab.Er.24h) PO SCH (09:00)
[2020-10-18] MEDS ORDERED: methylPREDNISolone Sodium Succinate 40 MG/1 ML SDV IVPUSH SCH (10:00)
--- NOTE | 2020-10-18 10:05 | PCM.PN ---
- General Info Date of Service: 10/18/20 Subjective Update: No acute events overnight following admission. Vital signs have been stable. He was able to eat a decent breakfast. No diarrhea since admission. He does continue to require supplemental oxygen. He reports that he feels well. No complaints of shortness of breath, cough, nausea or abdominal pain. Functional Status: Reports: Pain Controlled, Tolerating Diet - Review of Systems General: Reports: Weakness Pulmonary: Reports: Shortness of Breath. Denies: Cough Gastrointestinal: Denies: Diarrhea - Patient Data Vitals - Most Recent: Last Vital Signs Temp 36.4 C 10/18/20 07:00 Pulse 84 10/18/20 08:33 Resp 18 10/18/20 07:00 BP 107/72 10/18/20 08:33 Pulse Ox 92 L 10/18/20 07:58 Weight - Most Recent: 76 kg I&O - Last 24 Hours: Intake & Output 10/17/20 10/18/20 10/18/20 22:59 06:59 14:59 Intake Total 50 1088 350 Output Total 450 Balance 50 638 350 Lab Results Last 24 Hours: Laboratory Results - last 24 hr 10/17/20 10/17/20 10/17/20 Range/Units 16:58 17:18 17:18 WBC 7.7 (4.5-11.0) K/uL RBC 4.54 (4.30-5.90) M/uL Hgb 13.4 (12.0-15.0) g/dL Hct 39.9 L (40.0-54.0) % MCV 88 (80-98) fL MCH 30 (27-31) pg MCHC 34 (32-36) % Plt Count 276 (150-400) K/uL Neut % (Auto) 44.0 (36-66) % Lymph % (Auto) 26.3 (24-44) % [place] % (Auto) 13.1 H (2-6) % Eos % (Auto) 14.9 H (2-4) % Baso % (Auto) 1.7 H (0-1) % Puncture Site ABG pH (7.350-7.450) ABG pCO2 (35.0-42.0) mmHg ABG pO2 (75.0-100.0) mmHg ABG HCO3 (22.0-26.0) mmol/L ABG Total CO2 (23.0-27.0) mmol/L ABG O2 Saturation (95.0-98.0) % ABG O2 Content (15.0-23.0) %vol ABG Base Excess mm/L ABG Hemoglobin (13.5-18.0) g/dL ABG Oxyhemoglobin % ABG Carboxyhemoglobin (0.0-1.6) % ABG Methemoglobin % Neel Test O2 Delivery Device Sodium 138 L (140-148) mmol/L Potassium 3.9 (3.6-5.2) mmol/L Chloride 101 (100-108) mmol/L Carbon Dioxide 28 (21-32) mmol/L Anion Gap 12.9 (5.0-14.0) mmol/L BUN 23 H D (7-18) mg/dL Creatinine 1.3 (0.8-1.3) mg/dL Est Cr Clr Drug Dosing 38.85 mL/min Estimated GFR (MDRD) 53 L (>60) Glucose 132 H (74-106) mg/dL POC Glucose (74-106) mg/dL Calcium 8.6 (8.5-10.1) mg/dL Total Bilirubin 0.4 (0.2-1.0) mg/dL AST 18 D (15-37) U/L ALT 20 (12-78) U/L Alkaline Phosphatase 64 (46-116) U/L Total Protein 6.8 (6.4-8.2) g/dL Albumin 2.8 L (3.4-5.0) g/dL Globulin 4.0 H (2.3-3.5) g/dL Albumin/Globulin Ratio 0.7 L (1.2-2.2) Urine Color (YELLOW) Urine Appearance (CLEAR) Urine pH (5.0-8.0) Ur Specific [place] (1.008-1.030) Urine Protein (NEGATIVE) mg/dL Urine Glucose (UA) (NEGATIVE) mg/dL Urine Ketones (NEGATIVE) mg/dL Urine Occult Blood (NEGATIVE) Urine Nitrite (NEGATIVE) Urine Bilirubin (NEGATIVE) Urine Urobilinogen (0.2-1.0) EU/dL Ur Leukocyte Esterase (NEGATIVE) Urine RBC (0-5) Urine WBC (0-5) Ur Epithelial Cells Amorphous Sediment Urine Bacteria Urine Mucus SARS CoV-2 RNA Rapid ALFRED Negative 10/17/20 10/17/20 10/18/20 Range/Units 17:34 21:04 02:15 WBC (4.5-11.0) K/uL RBC (4.30-5.90) M/uL Hgb (12.0-15.0) g/dL Hct (40.0-54.0) % MCV (80-98) fL MCH (27-31) pg MCHC (32-36) % Plt Count (150-400) K/uL Neut % (Auto) (36-66) % Lymph % (Auto) (24-44) % [place] % (Auto) (2-6) % Eos % (Auto) (2-4) % Baso % (Auto) (0-1) % Puncture Site Right radial ABG pH 7.368 (7.350-7.450) ABG pCO2 41.3 (35.0-42.0) mmHg ABG pO2 59.6 L (75.0-100.0) mmHg ABG HCO3 23.2 (22.0-26.0) mmol/L ABG Total CO2 20.7 L (23.0-27.0) mmol/L ABG O2 Saturation 89.8 L (95.0-98.0) % ABG O2 Content 17.0 (15.0-23.0) %vol ABG Base Excess -1.5 mm/L ABG Hemoglobin 13.7 (13.5-18.0) g/dL ABG Oxyhemoglobin 88.1 % ABG Carboxyhemoglobin 1.0 (0.0-1.6) % ABG Methemoglobin 0.9 % Neel Test Passed O2 Delivery Device Room air Sodium (140-148) mmol/L Potassium (3.6-5.2) mmol/L Chloride (100-108) mmol/L Carbon Dioxide (21-32) mmol/L Anion Gap (5.0-14.0) mmol/L BUN (7-18) mg/dL Creatinine (0.8-1.3) mg/dL Est Cr Clr Drug Dosing mL/min Estimated GFR (MDRD) (>60) Glucose (74-106) mg/dL POC Glucose 106 (74-106) mg/dL Calcium (8.5-10.1) mg/dL Total Bilirubin (0.2-1.0) mg/dL AST (15-37) U/L ALT (12-78) U/L Alkaline Phosphatase (46-116) U/L Total Protein (6.4-8.2) g/dL Albumin (3.4-5.0) g/dL Globulin (2.3-3.5) g/dL Albumin/Globulin Ratio (1.2-2.2) Urine Color Yellow (YELLOW) Urine Appearance Clear (CLEAR) Urine pH 5.5 (5.0-8.0) Ur Specific [place] 1.020 (1.008-1.030) Urine Protein Negative (NEGATIVE) mg/dL Urine Glucose (UA) Negative (NEGATIVE) mg/dL Urine Ketones 40 H (NEGATIVE) mg/dL Urine Occult Blood Negative (NEGATIVE) Urine Nitrite Negative (NEGATIVE) Urine Bilirubin Negative (NEGATIVE) Urine Urobilinogen 0.2 (0.2-1.0) EU/dL Ur Leukocyte Esterase Negative (NEGATIVE) Urine RBC 0-5 (0-5) Urine WBC 0-5 (0-5) Ur Epithelial Cells Rare Amorphous Sediment Not seen Urine Bacteria Few Urine Mucus Few SARS CoV-2 RNA Rapid ALFRED 10/18/20 10/18/20 10/18/20 Range/Units 04:10 04:10 07:56 WBC 4.6 (4.5-11.0) K/uL RBC 4.21 L (4.30-5.90) M/uL Hgb 12.5 (12.0-15.0) g/dL Hct 37.1 L (40.0-54.0) % MCV 88 (80-98) fL MCH 30 (27-31) pg MCHC 34 (32-36) % Plt Count 245 (150-400) K/uL Neut % (Auto) 76.0 H (36-66) % Lymph % (Auto) 19.9 L (24-44) % [place] % (Auto) 1.5 L (2-6) % Eos % (Auto) 1.3 L (2-4) % Baso % (Auto) 1.3 H (0-1) % Puncture Site ABG pH (7.350-7.450) ABG pCO2 (35.0-42.0) mmHg ABG pO2 (75.0-100.0) mmHg ABG HCO3 (22.0-26.0) mmol/L ABG Total CO2 (23.0-27.0) mmol/L ABG O2 Saturation (95.0-98.0) % ABG O2 Content (15.0-23.0) %vol ABG Base Excess mm/L ABG Hemoglobin (13.5-18.0) g/dL ABG Oxyhemoglobin % ABG Carboxyhemoglobin (0.0-1.6) % ABG Methemoglobin % Neel Test O2 Delivery Device Sodium 139 L (140-148) mmol/L Potassium 4.0 (3.6-5.2) mmol/L Chloride 103 (100-108) mmol/L Carbon Dioxide 21 (21-32) mmol/L Anion Gap 19.0 H (5.0-14.0) mmol/L BUN 22 H (7-18) mg/dL Creatinine 1.1 (0.8-1.3) mg/dL Est Cr Clr Drug Dosing 45.92 mL/min Estimated GFR (MDRD) > 60 (>60) Glucose 159 H (74-106) mg/dL POC Glucose 182 H (74-106) mg/dL Calcium 7.8 L (8.5-10.1) mg/dL Total Bilirubin (0.2-1.0) mg/dL AST (15-37) U/L ALT (12-78) U/L Alkaline Phosphatase (46-116) U/L Total Protein (6.4-8.2) g/dL Albumin (3.4-5.0) g/dL Globulin (2.3-3.5) g/dL Albumin/Globulin Ratio (1.2-2.2) Urine Color (YELLOW) Urine Appearance (CLEAR) Urine pH (5.0-8.0) Ur Specific [place] (1.008-1.030) Urine Protein (NEGATIVE) mg/dL Urine Glucose (UA) (NEGATIVE) mg/dL Urine Ketones (NEGATIVE) mg/dL Urine Occult Blood (NEGATIVE) Urine Nitrite (NEGATIVE) Urine Bilirubin (NEGATIVE) Urine Urobilinogen (0.2-1.0) EU/dL Ur Leukocyte Esterase (NEGATIVE) Urine RBC (0-5) Urine WBC (0-5) Ur Epithelial Cells Amorphous Sediment Urine Bacteria Urine Mucus SARS CoV-2 RNA Rapid ALFRED Med Orders - Current: Current Medications Acetaminophen (Acetaminophen 325 Mg Tab) 650 mg PO Q4H PRN PRN Reason: Pain (Mild 1-3)/fever Albuterol (Albuterol 0.083% 2.5 Mg/3 Ml Neb Soln) 2.5 mg NEB Q4H PRN PRN Reason: Shortness Of Breath/wheezing Albuterol/Ipratropium (Albuterol/Ipratropium 3.0-0.5 Mg/3 Ml Neb Soln) 3 ml NEB QIDRT [facility] Last Admin: 10/18/20 07:16 Dose: 3 ml Documented by: Carvedilol (Carvedilol 12.5 Mg Tab) 25 mg PO BID [facility] Last Admin: 10/18/20 08:33 Dose: 25 mg Documented by: Donepezil HCl (Donepezil 10 Mg Tab) 10 mg PO BEDTIME [facility] Last Admin: 10/17/20 20:38 Dose: 10 mg Documented by: Doxycycline Hyclate (Doxycycline 100 Mg Cap) 100 mg PO BID [facility] Enoxaparin Sodium (Enoxaparin 40 Mg/0.4 Ml Syringe) 40 mg SUBCUT QPM [facility] Furosemide (Furosemide 40 Mg Tab) 40 mg PO DAILY [facility] Last Admin: 10/18/20 08:32 Dose: 40 mg Documented by: Guaifenesin (Guaifenesin 100 Mg/5 Ml Soln Ml (118 Ml Bottle)) 100 mg PO Q4H PRN PRN Reason: Cough Guaifenesin/Codeine Phosphate (Codeine/Guaifenesin 10-100 Mg/5 Ml Syrup 5 Ml Cup) 10 ml PO Q6H PRN PRN Reason: Cough Ceftriaxone Sodium 1 gm/ (Sodium Chloride) 50 mls @ 100 mls/hr IV Q24H [facility] Last Admin: 10/17/20 20:36 Dose: 100 mls/hr Documented by: Insulin Human Lispro (Insulin Lispro 100 Unit/Ml 3 Ml Kwikpen) 0 unit SUBCUT QIDACANDBED [facility]; Protocol Last Admin: 10/18/20 08:32 Dose: Not Given Documented by: Lactobacillus Rhamnosus (Lactobacillus Rhamnosus Gg (Probiotic) Cap) 1 cap PO BID [facility] Melatonin (Melatonin 3 Mg Tab) 9 mg PO BEDTIME [facility] Metformin HCl (Metformin 500 Mg Tab) 500 mg PO BIDMEALS [facility] Last Admin: 10/18/20 08:35 Dose: 500 mg Documented by: Ondansetron HCl (Ondansetron 4 Mg Tab.Dis) 4 mg PO Q6H PRN PRN Reason: Nausea able to take PO Discontinued Medications Amlodipine Besylate (Amlodipine 5 Mg Tab) 5 mg PO DAILY [facility] Enoxaparin Sodium (Enoxaparin 40 Mg/0.4 Ml Syringe) 40 mg SUBCUT DAILY [facility] Last Admin: 10/17/20 20:36 Dose: 40 mg Documented by: Sodium Chloride (Normal Saline) 1,000 mls @ 500 mls/hr IV ASDIRECTED [facility] Last Admin: 10/17/20 17:48 Dose: 500 mls/hr Documented by: Sodium Chloride (Normal Saline) 1,000 mls @ 125 mls/hr IV ASDIRECTED [facility] Last Admin: 10/17/20 20:30 Dose: 125 mls/hr Documented by: Lisinopril (Lisinopril 20 Mg Tab) 40 mg PO DAILY [facility] Melatonin (Melatonin 3 Mg Tab) 6 mg PO BEDTIME PRN PRN Reason: Insomnia Last Admin: 10/17/20 20:37 Dose: 6 mg Documented by: Methylprednisolone Sodium Succinate (Methylprednisolone Sodium Succinate 40 Mg/1 Ml Sdv) 40 mg IVPUSH Q6H [facility] Last Admin: 10/18/20 02:20 Dose: 40 mg Documented by: Methylprednisolone Sodium Succinate (Methylprednisolone Sodium Succinate 40 Mg/1 Ml Sdv) 40 mg IVPUSH Q6H [facility] Pantoprazole Sodium (Pantoprazole 40 Mg Vial) 40 mg IV BEDTIME [facility] Last Admin: 10/17/20 20:37 Dose: 40 mg Documented by: - Exam Quality Assessment: Supplemental Oxygen General: Alert, Cooperative, No Acute Distress. No: Oriented Lungs: Normal Respiratory Effort, Crackles (few left lung base), Rhonchi (mild diffuse ) Cardiovascular: Regular Rate, Regular Rhythm GI/Abdominal Exam: Normal Bowel Sounds, Soft, No Distention, Tender (mild left side) Extremities: No Pedal Edema. No: Increased Warmth Skin: Warm, Dry Psy/Mental Status: Alert, Normal Affect - Patient Data Lab Results Last 24 hrs: Laboratory Results - last 24 hr 10/17/20 10/17/20 10/17/20 Range/Units 16:58 17:18 17:18 WBC 7.7 (4.5-11.0) K/uL RBC 4.54 (4.30-5.90) M/uL Hgb 13.4 (12.0-15.0) g/dL Hct 39.9 L (40.0-54.0) % MCV 88 (80-98) fL MCH 30 (27-31) pg MCHC 34 (32-36) % Plt Count 276 (150-400) K/uL Neut % (Auto) 44.0 (36-66) % Lymph % (Auto) 26.3 (24-44) % [place] % (Auto) 13.1 H (2-6) % Eos % (Auto) 14.9 H (2-4) % Baso % (Auto) 1.7 H (0-1) % Puncture Site ABG pH (7.350-7.450) ABG pCO2 (35.0-42.0) mmHg ABG pO2 (75.0-100.0) mmHg ABG HCO3 (22.0-26.0) mmol/L ABG Total CO2 (23.0-27.0) mmol/L ABG O2 Saturation (95.0-98.0) % ABG O2 Content (15.0-23.0) %vol ABG Base Excess mm/L ABG Hemoglobin (13.5-18.0) g/dL ABG Oxyhemoglobin % ABG Carboxyhemoglobin (0.0-1.6) % ABG Methemoglobin % Neel Test O2 Delivery Device Sodium 138 L (140-148) mmol/L Potassium 3.9 (3.6-5.2) mmol/L Chloride 101 (100-108) mmol/L Carbon Dioxide 28 (21-32) mmol/L Anion Gap 12.9 (5.0-14.0) mmol/L BUN 23 H D (7-18) mg/dL Creatinine 1.3 (0.8-1.3) mg/dL Est Cr Clr Drug Dosing 38.85 mL/min Estimated GFR (MDRD) 53 L (>60) Glucose 132 H (74-106) mg/dL POC Glucose (74-106) mg/dL Calcium 8.6 (8.5-10.1) mg/dL Total Bilirubin 0.4 (0.2-1.0) mg/dL AST 18 D (15-37) U/L ALT 20 (12-78) U/L Alkaline Phosphatase 64 (46-116) U/L Total Protein 6.8 (6.4-8.2) g/dL Albumin 2.8 L (3.4-5.0) g/dL Globulin 4.0 H (2.3-3.5) g/dL Albumin/Globulin Ratio 0.7 L (1.2-2.2) Urine Color (YELLOW) Urine Appearance (CLEAR) Urine pH (5.0-8.0) Ur Specific [place] (1.008-1.030) Urine Protein (NEGATIVE) mg/dL Urine Glucose (UA) (NEGATIVE) mg/dL Urine Ketones (NEGATIVE) mg/dL Urine Occult Blood (NEGATIVE) Urine Nitrite (NEGATIVE) Urine Bilirubin (NEGATIVE) Urine Urobilinogen (0.2-1.0) EU/dL Ur Leukocyte Esterase (NEGATIVE) Urine RBC (0-5) Urine WBC (0-5) Ur Epithelial Cells Amorphous Sediment Urine Bacteria Urine Mucus SARS CoV-2 RNA Rapid ALFRED Negative 10/17/20 10/17/20 10/18/20 Range/Units 17:34 21:04 02:15 WBC (4.5-11.0) K/uL RBC (4.30-5.90) M/uL Hgb (12.0-15.0) g/dL Hct (40.0-54.0) % MCV (80-98) fL MCH (27-31) pg MCHC (32-36) % Plt Count (150-400) K/uL Neut % (Auto) (36-66) % Lymph % (Auto) (24-44) % [place] % (Auto) (2-6) % Eos % (Auto) (2-4) % Baso % (Auto) (0-1) % Puncture Site Right radial ABG pH 7.368 (7.350-7.450) ABG pCO2 41.3 (35.0-42.0) mmHg ABG pO2 59.6 L (75.0-100.0) mmHg ABG HCO3 23.2 (22.0-26.0) mmol/L ABG Total CO2 20.7 L (23.0-27.0) mmol/L ABG O2 Saturation 89.8 L (95.0-98.0) % ABG O2 Content 17.0 (15.0-23.0) %vol ABG Base Excess -1.5 mm/L ABG Hemoglobin 13.7 (13.5-18.0) g/dL ABG Oxyhemoglobin 88.1 % ABG Carboxyhemoglobin 1.0 (0.0-1.6) % ABG Methemoglobin 0.9 % Neel Test Passed O2 Delivery Device Room air Sodium (140-148) mmol/L Potassium (3.6-5.2) mmol/L Chloride (100-108) mmol/L Carbon Dioxide (21-32) mmol/L Anion Gap (5.0-14.0) mmol/L BUN (7-18) mg/dL Creatinine (0.8-1.3) mg/dL Est Cr Clr Drug Dosing mL/min Estimated GFR (MDRD) (>60) Glucose (74-106) mg/dL POC Glucose 106 (74-106) mg/dL Calcium (8.5-10.1) mg/dL Total Bilirubin (0.2-1.0) mg/dL AST (15-37) U/L ALT (12-78) U/L Alkaline Phosphatase (46-116) U/L Total Protein (6.4-8.2) g/dL Albumin (3.4-5.0) g/dL Globulin (2.3-3.5) g/dL Albumin/Globulin Ratio (1.2-2.2) Urine Color Yellow (YELLOW) Urine Appearance Clear (CLEAR) Urine pH 5.5 (5.0-8.0) Ur Specific [place] 1.020 (1.008-1.030) Urine Protein Negative (NEGATIVE) mg/dL Urine Glucose (UA) Negative (NEGATIVE) mg/dL Urine Ketones 40 H (NEGATIVE) mg/dL Urine Occult Blood Negative (NEGATIVE) Urine Nitrite Negative (NEGATIVE) Urine Bilirubin Negative (NEGATIVE) Urine Urobilinogen 0.2 (0.2-1.0) EU/dL Ur Leukocyte Esterase Negative (NEGATIVE) Urine RBC 0-5 (0-5) Urine WBC 0-5 (0-5) Ur Epithelial Cells Rare Amorphous Sediment Not seen Urine Bacteria Few Urine Mucus Few SARS CoV-2 RNA Rapid ALFRED 10/18/20 10/18/20 10/18/20 Range/Units 04:10 04:10 07:56 WBC 4.6 (4.5-11.0) K/uL RBC 4.21 L (4.30-5.90) M/uL Hgb 12.5 (12.0-15.0) g/dL Hct 37.1 L (40.0-54.0) % MCV 88 (80-98) fL MCH 30 (27-31) pg MCHC 34 (32-36) % Plt Count 245 (150-400) K/uL Neut % (Auto) 76.0 H (36-66) % Lymph % (Auto) 19.9 L (24-44) % [place] % (Auto) 1.5 L (2-6) % Eos % (Auto) 1.3 L (2-4) % Baso % (Auto) 1.3 H (0-1) % Puncture Site ABG pH (7.350-7.450) ABG pCO2 (35.0-42.0) mmHg ABG pO2 (75.0-100.0) mmHg ABG HCO3 (22.0-26.0) mmol/L ABG Total CO2 (23.0-27.0) mmol/L ABG O2 Saturation (95.0-98.0) % ABG O2 Content (15.0-23.0) %vol ABG Base Excess mm/L ABG Hemoglobin (13.5-18.0) g/dL ABG Oxyhemoglobin % ABG Carboxyhemoglobin (0.0-1.6) % ABG Methemoglobin % Neel Test O2 Delivery Device Sodium 139 L (140-148) mmol/L Potassium 4.0 (3.6-5.2) mmol/L Chloride 103 (100-108) mmol/L Carbon Dioxide 21 (21-32) mmol/L Anion Gap 19.0 H (5.0-14.0) mmol/L BUN 22 H (7-18) mg/dL Creatinine 1.1 (0.8-1.3) mg/dL Est Cr Clr Drug Dosing 45.92 mL/min Estimated GFR (MDRD) > 60 (>60) Glucose 159 H (74-106) mg/dL POC Glucose 182 H (74-106) mg/dL Calcium 7.8 L (8.5-10.1) mg/dL Total Bilirubin (0.2-1.0) mg/dL AST (15-37) U/L ALT (12-78) U/L Alkaline Phosphatase (46-116) U/L Total Protein (6.4-8.2) g/dL Albumin (3.4-5.0) g/dL Globulin (2.3-3.5) g/dL Albumin/Globulin Ratio (1.2-2.2) Urine Color (YELLOW) Urine Appearance (CLEAR) Urine pH (5.0-8.0) Ur Specific [place] (1.008-1.030) Urine Protein (NEGATIVE) mg/dL Urine Glucose (UA) (NEGATIVE) mg/dL Urine Ketones (NEGATIVE) mg/dL Urine Occult Blood (NEGATIVE) Urine Nitrite (NEGATIVE) Urine Bilirubin (NEGATIVE) Urine Urobilinogen (0.2-1.0) EU/dL Ur Leukocyte Esterase (NEGATIVE) Urine RBC (0-5) Urine WBC (0-5) Ur Epithelial Cells Amorphous Sediment Urine Bacteria Urine Mucus SARS CoV-2 RNA Rapid ALFRED Result Diagrams: 10/18/20 04:10 10/18/20 04:10 Sepsis Event Note - Evaluation Sepsis Screening Result: No Definite Risk - Focused Exam Vital Signs: Vital Signs Temp Pulse Pulse Resp BP BP Pulse Ox 10/18/20 08:33 84 107/72 10/18/20 07:58 92 L 10/18/20 07:00 36.4 C 84 18 107/72 97 10/18/20 02:11 36.1 C 78 97/47 L 91 L 10/17/20 22:59 36.4 C 78 17 97/60 93 L - Problem List Review Problem List Initiated/Reviewed/Updated: Yes - My Orders Last 24 Hours: My Active Orders 10/18/20 08:01 Discontinue Telemetry Monitoring [Cardiac Monitoring Discontinue] [RC] Click to Edit 10/18/20 08:15 metFORMIN [Glucophage] 500 mg PO BIDMEALS 10/18/20 09:27 Convert IV to Saline Lock [OM.PC] Routine 10/18/20 10:15 Doxycycline [Vibramycin] 100 mg PO BID Lactobacillus Rhamnosus GG [Culturelle] 1 cap PO BID 10/18/20 11:30 GLUCOSE POC LAB TO COLLECT JPM [POC] QIDACANDBED 10/18/20 16:30 GLUCOSE POC LAB TO COLLECT JPM [POC] QIDACANDBED 10/18/20 21:00 GLUCOSE POC LAB TO COLLECT JPM [POC] QIDACANDBED Melatonin 9 mg PO BEDTIME 10/19/20 07:30 GLUCOSE POC LAB TO COLLECT JPM [POC] QIDACANDBED 10/19/20 11:30 GLUCOSE POC LAB TO COLLECT JPM [POC] QIDACANDBED 10/19/20 16:30 GLUCOSE POC LAB TO COLLECT JPM [POC] QIDACANDBED 10/19/20 21:00 GLUCOSE POC LAB TO COLLECT JPM [POC] QIDACANDBED 10/20/20 07:30 GLUCOSE POC LAB TO COLLECT JPM [POC] QIDACANDBED 10/20/20 11:30 GLUCOSE POC LAB TO COLLECT JPM [POC] QIDACANDBED 10/20/20 16:30 GLUCOSE POC LAB TO COLLECT JPM [POC] QIDACANDBED - Plan Plan:: ASSESSMENT AND PLAN - Left lower lobe pneumonia-complicated by acute respiratory failure with hypoxia. Almost sounds like he may have a component of bronchitis. Continues to be h ypoxic. -Antibiotic coverage with ceftriaxone and doxycycline -Supplement oxygen to keep saturation >92 % -Discontinue steroids -Scheduled and as needed nebulizers -Symptomatic management of cough Diarrhea- this is thought to be caused by medication reaction to Trulicity- last dose on Saturday, October 12. No diarrhea so far. -monitor stools -Saline lock IV Generalized weakness- reports has in home Physical Therapy, he has gotten weaker in recent weeks. -pressure reduction mattress -consult PT -consult to OT Alzheimer's dementia-no behavior issues. -Donepezil 10 mg at bedtime -Melatonin at bedtime -monitor for safety Essential hypertension-blood pressure still on the low side. Appears to be well-hydrated. -Saline lock IV -Hold antihypertensive medication Type 2 diabetes mellitus-I believe the patient is intolerant to the Trulicity and this should be discontinued permanently. -Restart Metformin today -Restart glimepiride if blood sugars rise and appetite improves -blood glucose testing before meal and at bedtime -low dose sliding scale insulin coverage Maintenance issues - -DVT prophylaxis-enoxaparin -GI prophylaxis-not indicated -Nutrition-diabetic ADMISSION STATUS-patient will be admitted to inpatient status, expect at least a 2 night hospital stay for evaluation and management of problems as outlined above. At the time of this admission I do not reasonably expected evaluation and management of this problem will require more than a 96 hour hospital stay. DISPOSITION-anticipate discharge to home with home care after the hospital stay. Chase Lynne M.D.
--- NOTE | 2020-10-18 10:23 | CR ---
CHEST: 2 view CLINICAL HISTORY:Dyspnea COMPARISON:2020 FINDINGS: The heart size, pulmonary vascularity and hilar structures are normal. No infiltrate effusion or pneumothorax is seen. IMPRESSION: No acute cardiopulmonary process.
[2020-10-18] MEDS: Doxycycline 100 MG Cap PO SCH ×2 (11:33→20:10)
[2020-10-18] MEDS: Lactobacillus Rhamnosus GG (Probiotic) Cap PO SCH ×2 (11:33→20:10)
--- NOTE | 2020-10-18 11:54 | CR ---
CHEST: Portable 10/18/2020 at 5:25 AM CLINICAL HISTORY:Pneumonia COMPARISON:10/17/2020 FINDINGS: Heart and pulmonary vascularity appear normal There is some patchy density in the left lower lobe similar to prior study. There is also some minimal patchy density in the right lung base. Impression: Patchy bibasal densities. Some of this was present on prior study from 2019. Some superimposed acute pneumonic infiltrate is not excluded.
[2020-10-18] MEDS ORDERED: Enoxaparin 40 MG/0.4 ML Syringe SUBCUT SCH (17:00)
[2020-10-18] MEDS: cefTRIAXone 1 GM in Sodium Chloride 0.9% 50 ML IV SCH (20:10)
[2020-10-18] MEDS: Donepezil 10 MG Tab PO SCH (20:11)
[2020-10-18] MEDS ORDERED: Melatonin 3 MG Tab PO SCH (21:00)
[2020-10-19] MEDS: Albuterol/Ipratropium 3.0-0.5 MG/3 ML Neb Soln NEB SCH ×2 (07:03→11:22)
[2020-10-19] MEDS: Insulin Lispro 100 Unit/ML 3 ML KwikPen SUBCUT SCH ×2 (07:44→11:48)
[2020-10-19] MEDS ORDERED: Glimepiride 2 MG Tab PO SCH (08:00)
[2020-10-19] MEDS: metFORMIN 500 MG Tab PO SCH (08:25)
[2020-10-19] MEDS: Doxycycline 100 MG Cap PO SCH (08:26)
[2020-10-19] MEDS: Furosemide 40 MG Tab PO SCH (08:26)
[2020-10-19] MEDS: Lactobacillus Rhamnosus GG (Probiotic) Cap PO SCH (08:26)
[2020-10-19] MEDS: Carvedilol 12.5 MG Tab PO SCH (08:26)
[2020-10-19 10:42] VITALS: BP 114/63
[2020-10-19 11:23] VITALS: PULSE 68
--- NOTE | 2020-10-19 13:00 | PCM.DCSUM1 ---
Discharge Summary - Hospital Course Brief History: 84-year-old male with history of Alzheimer's dementia, type 2 diabetes mellitus, COPD and current outpatient treatment for pneumonia who presented with weakness and diarrhea. He was admitted for management of left lower lobe pneumonia complicated by acute respiratory failure with hypoxia as well as hydration and management of his diarrhea thought secondary to Trulicity use. Diagnosis: Stroke: No - Discharge Data Discharge Date: 10/19/20 Discharge Disposition: Home, W Home Health Agency 06 Condition: Good - Referral to Home Health Date of Face to Face Encounter: 10/19/20 Reason for Homebound Status: acute on chronic weakness and dyspnea due to pneumonia Primary Care Physician: Bo Sutherland MD Skilled Need: Nursing, PT - Discharge Diagnosis/Problem(s) (1) Pneumonia SNOMED Code(s): 390947953 ICD Code: J18.9 - PNEUMONIA, UNSPECIFIED ORGANISM Status: Acute Priority: High Current Visit: Yes Qualifiers: Pneumonia type: due to unspecified organism Laterality: left Lung location: lower lobe of lung Qualified Code(s): J18.9 - Pneumonia, unspecified organism (2) Acute respiratory failure with hypoxia SNOMED Code(s): 76588134, 413597739 ICD Code: J96.01 - ACUTE RESPIRATORY FAILURE WITH HYPOXIA Status: Acute Current Visit: Yes (3) Diarrhea SNOMED Code(s): 25478435 ICD Code: R19.7 - DIARRHEA, UNSPECIFIED Status: Acute Priority: High Current Visit: Yes Qualifiers: Diarrhea type: unspecified type Qualified Code(s): R19.7 - Diarrhea, unspecified (4) Generalized weakness SNOMED Code(s): 39320292 ICD Code: R53.1 - WEAKNESS Status: Acute Priority: High Current Visit: Yes (5) Alzheimer's dementia without behavioral disturbance SNOMED Code(s): 41259750 ICD Code: G30.9 - ALZHEIMER'S DISEASE, UNSPECIFIED; F02.80 - DEMENTIA IN OTH DISEASES CLASSD ELSWHR W/O BEHAVRL DISTURB Status: Chronic Priority: High Current Visit: Yes Qualifiers: Alzheimer's disease onset: late-onset Qualified Code(s): G30.1 - Alzheimer's disease with late onset; F02.80 - Dementia in other diseases classified elsewhere without behavioral disturbance (6) Diabetes mellitus type 2 SNOMED Code(s): 00201015 ICD Code: E11.9 - TYPE 2 DIABETES MELLITUS WITHOUT COMPLICATIONS Status: Chronic Priority: Low Current Visit: Yes - Patient Summary/Data Consults: Consultations 10/17/20 19:57 OT Evaluation and Treatment [CONS] Routine Please Evaluate and Treat. OT Reason for Consult: Discharge Planning Special Instructions: has home PT This query below is only for informational purposes and is not editable. Admission Diagnosis/Problem: Pneumonia PT Evaluation and Treatment [CONS] Routine Please Evaluate and Treat. PT Reason for Consult: Strengthening This query below is only for informational purposes and is not editable. Admission Diagnosis/Problem: Pneumonia Hospital Course: Nick was sent from the walk-in clinic to the emergency room for evaluation of weakness and diarrhea. He was noted to be hypoxic in the walk-in clinic. He was currently receiving oral antibiotic therapy for pneumonia as an outpatient. Work-up in the emergency room did confirm hypoxia and suggested a left lower lobe pneumonia. The patient was mildly dehydrated. There was concern that the Trulicity was causing his gastrointestinal symptoms since the returned shortly after he received his injection on October 12. He was admitted to the hospital and started on IV antibiotic therapy. Initially this was just ceftriaxone but doxycycline was added the next day for additional atypical coverage. His Metformin was continued and then the glimepiride was added after we confirmed that he was able to eat and drink well. He did not have any diarrhea during the course of the hospital stay. His appetite has improved. His strength has been good. We have been able to wean him off the supplemental oxygen. His lung exam has improved dramatically since the time of admission. He did have some moderate blood sugar elevation during the early part of the hospital stay probably related to steroids but this has settled down nicely. At the time of discharge the plan is for him to be on doxycycline in addition to his cefuroxime to finish treatment for the pneumonia. We are going to send him home with Metformin and glimepiride. I recommend that he stop taking the Trulicity and think this should be added to his allergy list. He will be keeping track of his blood sugars and will be following up next week. He may need some medication adjustment to manage his diabetes but he seems to be doing well with just his oral medication so far. - Patient Instructions Diet: Diabetic Diet Activity: As Tolerated Showering/Bathing: May Shower Other/Special Instructions: 1. You were in the hospital for management of a left lower lobe pneumonia that was complicated by acute respiratory failure with hypoxia requiring supplemental oxygen. Your infection is improving with antibiotic therapy. I do recommend that you continue taking the cefuroxime as prescribed by Dr. Bo Sutherland. I also recommend that you start taking doxycycline 100 mg capsules. Please take 1 capsule twice daily with food for 9 doses. Your first dose outside of the hospital will be due tonight. You may increase your activity as tolerated. It is important to drink plenty of fluid each day to maintain adequate hydration. 2. Stop taking Trulicity - I suspect that this medication is causing the decreased appetite, nausea and diarrhea since the symptoms started shortly after this medication was reintroduced. Please check your blood sugars at least twice daily (morning and then lunch day 1, morning and supper day 2, morning and bedtime day 3 and then start over) and record these numbers until your follow-up. This will help determine if an additional medication or medication adjustment is required. 3. Continue your other home medications as previously prescribed. 4. I have placed a referral to home health care. They will provide nursing and physical therapy services to ease your transition home. 5. Follow up as scheduled next week - Discharge Plan *PRESCRIPTION DRUG MONITORING PROGRAM REVIEWED*: Not Applicable *COPY OF PRESCRIPTION DRUG MONITORING REPORT IN PATIENT DEREK: Not Applicable Prescriptions/Med Rec: Doxycycline [Vibramycin] 100 mg PO BID #9 cap Home Medications: Home Meds Albuterol Sulfate [Albuterol Sulfate HFA] 2 puff INH Q6H PRN 06/04/13 [History] Furosemide 40 mg PO DAILY 06/04/13 [History] Lisinopril 40 mg PO DAILY 06/04/13 [History] amLODIPine Besylate [Amlodipine Besylate] 5 mg PO DAILY 06/04/13 [History] carvediloL [Carvedilol] 25 mg PO BID 06/04/13 [History] Donepezil HCl 1 tab PO BEDTIME 03/30/19 [History] Aspirin [Halfprin] 81 mg PO DAILY 11/24/19 [History] Simvastatin [Zocor] 20 mg PO BEDTIME 11/24/19 [History] Cefuroxime Axetil [Ceftin] 500 mg PO BID 10/17/20 [History] Ipratropium/Albuterol Sulfate [Iprat-Albut 0.5-3(2.5) MG/3 ML] 3 ml IH Q4H PRN 10/17/20 [History] metFORMIN HCl [Metformin HCl ER] 500 mg PO DAILY 10/17/20 [History] Glimepiride 4 mg PO DAILY 10/18/20 [History] Doxycycline [Vibramycin] 100 mg PO BID #9 cap 10/19/20 [Rx] Oxygen Therapy Mode: Room Air Patient Handouts: Dehydration, Adult, [id number], Community-Acquired Pneumonia, Adult, [id number], Doxycycline tablets or capsules Referrals: Srinivasan Cunningham NP [Nurse Practitioner] - 10/26/20 2:20 pm (Arrive 15 minutes early to register for your appointment.) - Discharge Summary/Plan Comment DC Time >30 min.: Yes (35-set up home care ) Total # of Minutes for Discharge Time: 35 - Patient Data Vitals - Most Recent: Last Vital Signs Temp 36.4 C 10/19/20 10:40 Pulse 68 10/19/20 11:23 Resp 16 10/19/20 10:40 BP 114/63 10/19/20 10:40 Pulse Ox 90 L 10/19/20 10:40 Weight - Most Recent: 76 kg I&O - Last 24 hours: Intake & Output 10/18/20 10/19/20 10/19/20 22:59 06:59 14:59 Intake Total 400 Balance 400 Lab Results - Last 24 hrs: Laboratory Results - last 24 hr 10/18/20 10/18/20 10/19/20 Range/Units 16:26 21:07 07:20 POC Glucose 274 H 267 H 170 H (74-106) mg/dL 10/19/20 Range/Units 11:17 POC Glucose 143 H (74-106) mg/dL Med Orders - Current: Current Medications Acetaminophen (Acetaminophen 325 Mg Tab) 650 mg PO Q4H PRN PRN Reason: Pain (Mild 1-3)/fever Albuterol (Albuterol 0.083% 2.5 Mg/3 Ml Neb Soln) 2.5 mg NEB Q4H PRN PRN Reason: Shortness Of Breath/wheezing Albuterol/Ipratropium (Albuterol/Ipratropium 3.0-0.5 Mg/3 Ml Neb Soln) 3 ml NEB QIDRT YANDEL Last Admin: 10/19/20 11:22 Dose: 3 ml Documented by: Carvedilol (Carvedilol 12.5 Mg Tab) 25 mg PO BID [facility] Last Admin: 10/19/20 08:26 Dose: 25 mg Documented by: Donepezil HCl (Donepezil 10 Mg Tab) 10 mg PO BEDTIME [facility] Last Admin: 10/18/20 20:11 Dose: 10 mg Documented by: Doxycycline Hyclate (Doxycycline 100 Mg Cap) 100 mg PO BID [facility] Last Admin: 10/19/20 08:26 Dose: 100 mg Documented by: Enoxaparin Sodium (Enoxaparin 40 Mg/0.4 Ml Syringe) 40 mg SUBCUT QPM [facility] Last Admin: 10/18/20 17:14 Dose: 40 mg Documented by: Furosemide (Furosemide 40 Mg Tab) 40 mg PO DAILY [facility] Last Admin: 10/19/20 08:26 Dose: 40 mg Documented by: Glimepiride (Glimepiride 2 Mg Tab) 4 mg PO WITHBREAKFAST [facility] Last Admin: 10/19/20 08:26 Dose: 4 mg Documented by: Guaifenesin (Guaifenesin 100 Mg/5 Ml Soln Ml (118 Ml Bottle)) 100 mg PO Q4H PRN PRN Reason: Cough Guaifenesin/Codeine Phosphate (Codeine/Guaifenesin 10-100 Mg/5 Ml Syrup 5 Ml Cup) 10 ml PO Q6H PRN PRN Reason: Cough Ceftriaxone Sodium 1 gm/ (Sodium Chloride) 50 mls @ 100 mls/hr IV Q24H [facility] Last Admin: 10/18/20 20:10 Dose: 100 mls/hr Documented by: Insulin Human Lispro (Insulin Lispro 100 Unit/Ml 3 Ml Kwikpen) 0 unit SUBCUT QIDACANDBED [facility]; Protocol Last Admin: 10/19/20 11:48 Dose: Not Given Documented by: Lactobacillus Rhamnosus (Lactobacillus Rhamnosus Gg (Probiotic) Cap) 1 cap PO BID [facility] Last Admin: 10/19/20 08:26 Dose: 1 cap Documented by: Melatonin (Melatonin 3 Mg Tab) 9 mg PO BEDTIME [facility] Last Admin: 10/18/20 20:10 Dose: 9 mg Documented by: Metformin HCl (Metformin 500 Mg Tab) 500 mg PO BIDMEALS [facility] Last Admin: 10/19/20 08:25 Dose: 500 mg Documented by: Ondansetron HCl (Ondansetron 4 Mg Tab.Dis) 4 mg PO Q6H PRN PRN Reason: Nausea able to take PO Discontinued Medications Amlodipine Besylate (Amlodipine 5 Mg Tab) 5 mg PO DAILY [facility] Enoxaparin Sodium (Enoxaparin 40 Mg/0.4 Ml Syringe) 40 mg SUBCUT DAILY [facility] Last Admin: 10/17/20 20:36 Dose: 40 mg Documented by: Sodium Chloride (Normal Saline) 1,000 mls @ 500 mls/hr IV ASDIRECTED [facility] Last Admin: 10/17/20 17:48 Dose: 500 mls/hr Documented by: Sodium Chloride (Normal Saline) 1,000 mls @ 125 mls/hr IV ASDIRECTED [facility] Last Admin: 10/17/20 20:30 Dose: 125 mls/hr Documented by: Lisinopril (Lisinopril 20 Mg Tab) 40 mg PO DAILY [facility] Melatonin (Melatonin 3 Mg Tab) 6 mg PO BEDTIME PRN PRN Reason: Insomnia Last Admin: 10/17/20 20:37 Dose: 6 mg Documented by: Methylprednisolone Sodium Succinate (Methylprednisolone Sodium Succinate 40 Mg/1 Ml Sdv) 40 mg IVPUSH Q6H [facility] Last Admin: 10/18/20 02:20 Dose: 40 mg Documented by: Methylprednisolone Sodium Succinate (Methylprednisolone Sodium Succinate 40 Mg/1 Ml Sdv) 40 mg IVPUSH Q6H [facility] Pantoprazole Sodium (Pantoprazole 40 Mg Vial) 40 mg IV BEDTIME [facility] Last Admin: 10/17/20 20:37 Dose: 40 mg Documented by:
== END 2020-10-19 13:43 | disposition home health service (06) | DRG 193 ==
LOC: JP.ED 16:12 → JP.MS 19:11
PROVIDERS: ADMIT Internal Medicine; ATTEND Internal Medicine
DX: R53.1 Weakness (principal); R19.7 Diarrhea, unspecified; J18.9 Pneumonia, unspecified organism; J96.01 Acute respiratory failure with hypoxia; J44.0 Chronic obstructive pulmonary disease with (acute) lower respiratory infection; K52.1 Toxic gastroenteritis and colitis; E11.9 Type 2 diabetes mellitus without complications; G30.1 Alzheimer's disease with late onset; H91.90 Unspecified hearing loss, unspecified ear; F02.80 Dementia in other diseases classified elsewhere, unspecified severity, without behavioral disturbance, psychotic disturbance, mood disturbance, and anxiety; H54.7 Unspecified visual loss; I11.0 Hypertensive heart disease with heart failure; E78.00 Pure hypercholesterolemia, unspecified; T50.995A Adverse effect of other drugs, medicaments and biological substances, initial encounter; Z96.659 Presence of unspecified artificial knee joint; I95.9 Hypotension, unspecified; E86.0 Dehydration; Z20.822 Contact with and (suspected) exposure to COVID-19; N40.1 Benign prostatic hyperplasia with lower urinary tract symptoms; I50.9 Heart failure, unspecified; K21.9 Gastro-esophageal reflux disease without esophagitis; N39.498 Other specified urinary incontinence; K57.90 Diverticulosis of intestine, part unspecified, without perforation or abscess without bleeding; M19.90 Unspecified osteoarthritis, unspecified site; E66.9 Obesity, unspecified; Z79.4 Long term (current) use of insulin; Z85.828 Personal history of other malignant neoplasm of skin; Z90.89 Acquired absence of other organs; Z85.51 Personal history of malignant neoplasm of bladder; Z86.16 Personal history of COVID-19; Z79.82 Long term (current) use of aspirin; Z88.8 Allergy status to other drugs, medicaments and biological substances; Z79.899 Other long term (current) drug therapy; Z88.5 Allergy status to narcotic agent; Z98.890 Other specified postprocedural states; Z87.891 Personal history of nicotine dependence; Z68.26 Body mass index [BMI] 26.0-26.9, adult
CPT/HCPCS: 36415; 36600; 71046 ×2; 80053; 82803; 85025; J7030; U0002; 71045; 71045-26; 80048; 81001; 82947; 94640; 94762; 97162-GP; 97165-GO; 97530-GP; 97535-GO; 99285-25; A9270-GY; C9113; J0696; J1650; J1815; J2920; J7620-GY

== ENCOUNTER 2024-07-02 15:54 | Emergency (ER) | payer MEDICARE, BC ==
[2024-07-02] MEDS: Albuterol/Ipratropium 3.0-0.5 MG/3 ML Neb Soln NEB ONE (16:13)
[2024-07-02 17:12] VITALS: BP 126/72; PULSE 64
== END 2024-07-02 17:31 | disposition home or self-care (01) ==
LOC: JP.ED 15:54
DX: J44.1 Chronic obstructive pulmonary disease with (acute) exacerbation (principal); I11.0 Hypertensive heart disease with heart failure; E78.00 Pure hypercholesterolemia, unspecified; I50.9 Heart failure, unspecified; E11.9 Type 2 diabetes mellitus without complications; Z86.16 Personal history of COVID-19; Z88.8 Allergy status to other drugs, medicaments and biological substances; Z88.5 Allergy status to narcotic agent; Z79.51 Long term (current) use of inhaled steroids; Z79.899 Other long term (current) drug therapy
CPT/HCPCS: 71046; 71046-26; 87428-QW; 94640; 99284; 99285; A9270-GY

== ENCOUNTER 2024-08-08 20:38 | Inpatient (IN) | payer MEDICARE, BC ==
[2024-08-08 20:55] LABS: BASOPHILS PERCENT AUTO 0.3 % (0.1-1.3); EOSINOPHILS ABSOLUTE AUTO 0.06 K/uL (0.00-0.40); EOSINOPHILS PERCENT AUTO 0.8 % (0.0-5.4); IMMATURE GRAN ABSOLUTE AUTO 0.03 K/uL (0.00-0.23); IMMATURE GRAN PERCENT AUTO 0.4 % (0.0-0.7); LYMPHOCYTES ABSOLUTE AUTO 0.94 K/uL (0.8-3.3); LYMPHOCYTES PERCENT AUTO 13.1 % (11.4-47.7); MEAN CORPUSCULAR HEMOGLOBIN 29.4 pg (31.6-35.5); MEAN CORPUSCULAR HGB CONC 32.6 g/dL (31.6-35.5); MEAN CORPUSCULAR VOLUME 90.2 fL (81.4-99.0); MONOCYTES PERCENT AUTO 11.1 % (3.3-12.6); NEUTROPHILS ABSOLUTE AUTO 5.33 K/uL (1.0-7.6); NEUTROPHILS PERCENT AUTO 74.3 % (40.0-78.1); PLATELET COUNT,PLT 208 K/uL (130-375); WHITE BLOOD CELL COUNT,WBC 7.2 K/uL (3.2-11.0)
[2024-08-08 20:56] LABS: BASOPHILS ABSOLUTE AUTO 0.02 K/uL (0.00-0.10)
[2024-08-08] MEDS: Sodium Chloride 0.9% 1,000 ML IV SCH ×2 (21:07→23:16)
[2024-08-08 21:16] LABS: A/G RATIO 0.9 (1.2-2.2); ALANINE AMINOTRANSFERASE,ALT 17 U/L (12-78); ALBUMIN 3.6 g/dL (3.4-5.0); ALKALINE PHOSPHATASE 58 U/L (46-116); ASPARTATE AMNIOTRANSFERASE,AST 13 U/L (15-37); BILIRUBIN TOTAL 0.7 mg/dL (0.2-1.0); BLOOD UREA NITROGEN,BUN 17 mg/dL (7-18); CALCIUM 9.6 mg/dL (8.5-10.1); CARBON DIOXIDE,CO2 30 mmol/L (21-32); CHLORIDE,CL 103 mmol/L (100-108); CREATININE 1.1 mg/dL (0.8-1.3); EST CRCL DRUG DOSING (CG) 45.77 mL/min; ESTIMATED GFR 65 mL/min (>60); GLUCOSE RANDOM 230 mg/dL (74-106); POTASSIUM,K 3.7 mmol/L (3.6-5.2); PROTEIN TOTAL,TP 7.5 g/dL (6.4-8.2); SODIUM,NA 141 mmol/L (140-148)
[2024-08-08] MEDS ORDERED: Ondansetron 4 MG Tab.DIS PO PRN (22:35)
[2024-08-08] MEDS ORDERED: Ondansetron 4 MG/2 ML SDV IV PRN (22:35)
[2024-08-08] MEDS ORDERED: Sennosides/Docusate Sodium 50-8.6 MG Tab PO PRN (22:35)
[2024-08-08] MEDS ORDERED: Albuterol 0.083% 2.5 MG/3 ML Neb Soln NEB PRN (22:35)
[2024-08-08] MEDS ORDERED: Melatonin 3 MG Tab PO PRN (22:35)
[2024-08-08] MEDS ORDERED: guaiFENesin 100 MG/5 ML Soln 10 ML UD Cup PO PRN (23:06)
[2024-08-08] MEDS ORDERED: 50% Dextrose in Water 50 ML Syringe IVPUSH PRN (23:16)
[2024-08-08] MEDS ORDERED: Glucagon,Human Recombinant 1 MG Vial IM PRN (23:16)
[2024-08-08] MEDS ORDERED: Nystatin Topical Powder 15 GM Bottle TOP PRN (23:17)
[2024-08-08] MEDS: Ampicillin/Sulbactam Na 1.5 GM in Sodium Chloride 0.9% 50 ML IV SCH (23:47)
[2024-08-08] MEDS: Insulin Lispro 100 Unit/ML 3 ML KwikPen SUBCUT ONE (23:47)
[2024-08-08] MEDS: Acetaminophen 325 MG Tab PO PRN (23:49)
[2024-08-09 05:44] LABS: HEMATOCRIT 40.5 % (38.4-49.7); HEMOGLOBIN 13.1 g/dL (12.9-16.9); MEAN CORPUSCULAR HEMOGLOBIN 29.6 pg (31.6-35.5); MEAN CORPUSCULAR HGB CONC 32.3 g/dL (31.6-35.5); MEAN CORPUSCULAR VOLUME 91.6 fL (81.4-99.0); RED BLOOD CELL COUNT 4.42 M/uL (4.14-5.76)
[2024-08-09 05:56] LABS: ANION GAP 6.1 mmol/L (5.0-14.0); CALCIUM 8.5 mg/dL (8.5-10.1); CREATININE 0.9 mg/dL (0.8-1.3); EST CRCL DRUG DOSING (CG) 56.15 mL/min; POTASSIUM,K 3.9 mmol/L (3.6-5.2)
[2024-08-09] MEDS: Albuterol/Ipratropium 3.0-0.5 MG/3 ML Neb Soln NEB SCH ×2 (06:56→10:43)
[2024-08-09] MEDS: Pantoprazole 40 MG Tab.CR PO SCH (08:15)
[2024-08-09] MEDS: Lisinopril 20 MG Tab PO SCH (08:15)
[2024-08-09] MEDS: Oxybutynin 5 MG Tab PO SCH (08:15)
[2024-08-09] MEDS: Lactobacillus Rhamnosus GG (Probiotic) Cap PO SCH (08:15)
[2024-08-09] MEDS: Levothyroxine 25 MCG Tab PO SCH (08:15)
[2024-08-09] MEDS: Carvedilol 12.5 MG Tab PO SCH (08:15)
[2024-08-09] MEDS: Enoxaparin 40 MG/0.4 ML Syringe SUBCUT SCH (08:16)
[2024-08-09] MEDS: metFORMIN 500 MG Tab PO SCH (08:16)
[2024-08-09] MEDS: Memantine 5 MG Tab PO SCH (08:16)
[2024-08-09] MEDS: Aspirin 81 MG Tab.EC PO SCH (08:16)
[2024-08-09] MEDS: amLODIPine 5 MG Tab PO SCH (08:16)
[2024-08-09] MEDS: Insulin Lispro 100 Unit/ML 3 ML KwikPen SUBCUT SCH (08:17)
[2024-08-09] MEDS: Nystatin Topical Powder 15 GM Bottle TOP PRN (10:35)
[2024-08-09] MEDS ORDERED: Sodium Chloride 0.9% 10 ML Syringe IV PRN (10:56)
[2024-08-09] MEDS: METFORMIN 500 MG PO SCH (16:51)
[2024-08-09] MEDS: Donepezil 10 MG Tab PO SCH (22:22)
[2024-08-09] MEDS: atorvaSTATin 20 MG Tab PO SCH (22:22)
[2024-08-10] MEDS: OXYBUTYNIN 5 MG PO SCH (08:52)
[2024-08-10 11:13] VITALS: PULSE 96
[2024-08-10 11:28] VITALS: BP 98/58
== END 2024-08-10 12:36 | disposition home health service (06) | DRG 178 ==
LOC: JP.ED 20:38 → JP.MS 22:14 → OBSVTOIN 22:35
PROVIDERS: ADMIT Registered Nurse; ATTEND Internal Medicine
DX: J69.0 Pneumonitis due to inhalation of food and vomit (principal); I13.0 Hypertensive heart and chronic kidney disease with heart failure and stage 1 through stage 4 chronic kidney disease, or unspecified chronic kidney disease; R53.1 Weakness; I11.0 Hypertensive heart disease with heart failure; J44.1 Chronic obstructive pulmonary disease with (acute) exacerbation; K52.9 Noninfective gastroenteritis and colitis, unspecified; Z66 Do not resuscitate; H91.90 Unspecified hearing loss, unspecified ear; H54.7 Unspecified visual loss; I50.9 Heart failure, unspecified; Z88.5 Allergy status to narcotic agent; E78.00 Pure hypercholesterolemia, unspecified; J44.9 Chronic obstructive pulmonary disease, unspecified; K21.9 Gastro-esophageal reflux disease without esophagitis; Z79.890 Hormone replacement therapy; N40.0 Benign prostatic hyperplasia without lower urinary tract symptoms; M19.90 Unspecified osteoarthritis, unspecified site; E11.9 Type 2 diabetes mellitus without complications; E66.9 Obesity, unspecified; N18.30 Chronic kidney disease, stage 3 unspecified; G30.9 Alzheimer's disease, unspecified; F02.80 Dementia in other diseases classified elsewhere, unspecified severity, without behavioral disturbance, psychotic disturbance, mood disturbance, and anxiety; Z79.899 Other long term (current) drug therapy; Z88.8 Allergy status to other drugs, medicaments and biological substances; Z86.16 Personal history of COVID-19; Z79.84 Long term (current) use of oral hypoglycemic drugs; Z85.828 Personal history of other malignant neoplasm of skin; Z68.25 Body mass index [BMI] 25.0-25.9, adult; Z90.79 Acquired absence of other genital organ(s); Z98.890 Other specified postprocedural states; Z85.51 Personal history of malignant neoplasm of bladder; Z90.49 Acquired absence of other specified parts of digestive tract; Z79.4 Long term (current) use of insulin; Z79.82 Long term (current) use of aspirin; Z96.659 Presence of unspecified artificial knee joint
CPT/HCPCS: 36415; 71045 ×2; 80053; 83605; 83690; 85025; 96360; 96361; 99285; J7030; 80048; 82947; 85027; 94640; 96365; 96366; 96372; 96376; 97161-GP; 99223; 99233; 99239; A9270-GY; G0378; J0295; J1650; J1815

== ENCOUNTER 2024-10-03 20:05 | Inpatient (IN) | payer MEDICARE, BC ==
[2024-10-03 21:13] LABS: PLATELET COUNT,PLT 182 K/uL (130-375); RED BLOOD CELL COUNT 5.04 M/uL (4.14-5.76); WHITE BLOOD CELL COUNT,WBC 13.2 K/uL (3.2-11.0)
[2024-10-03 21:27] LABS: BLOOD UREA NITROGEN,BUN 25.0 mg/dL (7-18); CARBON DIOXIDE,CO2 26.0 mmol/L (21-32); CHLORIDE,CL 104.0 mmol/L (100-108); CREATININE 1.2 mg/dL (0.8-1.3); EST CRCL DRUG DOSING (CG) 46.19 mL/min; ESTIMATED GFR 59.0 mL/min (>60); GLUCOSE RANDOM 198.0 mg/dL (74-106); POTASSIUM,K 4.1 mmol/L (3.6-5.2); SODIUM,NA 141.0 mmol/L (140-148)
[2024-10-03 21:40] LABS: BAND ABSOLUTE MAN 1.32 K/uL; BAND PERCENT MAN 10 % (5-11); LYMPHOCYTES ABSOLUTE MAN 0.79 K/uL (0.8-3.3); LYMPHOCYTES PERCENT MAN 6 % (24-44); MONOCYTES ABSOLUTE MAN 1.06 K/uL (0.20-0.90); MONOCYTES PERCENT MAN 8 % (2-6); NEUTROPHILS ABSOLUTE MAN 10.03 K/uL (1.0-7.6); SEG NEUTROPHILS PERCENT MAN 76 % (36-66)
[2024-10-03] MEDS: Ondansetron 4 MG/2 ML SDV IVPUSH ONE (23:38)
[2024-10-04 00:55] LABS: APPEARANCE,URINE CLEAR (CLEAR); GLUCOSE,URINE 250 mg/dL (NEGATIVE); OCCULT BLOOD,URINE NEGATIVE (NEGATIVE)
[2024-10-04 00:56] LABS: SQUAMOUS EPITHELIAL CELLS,UR NOT SEEN /HPF; UROTHELIAL CELLS,URINE NOT SEEN /HPF
[2024-10-04] MEDS: Ampicillin/Sulbactam Na 1.5 GM in Sodium Chloride 0.9% 50 ML IV SCH ×2 (01:04→08:21)
[2024-10-04 01:08] LABS: LACTIC ACID 2.3 mmol/L (0.7-2.1)
[2024-10-04] MEDS ORDERED: Albuterol 0.083% 2.5 MG/3 ML Neb Soln NEB PRN (02:06)
[2024-10-04] MEDS ORDERED: Ondansetron 4 MG/2 ML SDV IV PRN (02:06)
[2024-10-04] MEDS ORDERED: Ondansetron 4 MG Tab.DIS PO PRN (02:06)
[2024-10-04 05:48] LABS: PLATELET COUNT,PLT 183.0 K/uL (130-375); RED BLOOD CELL COUNT 4.53 M/uL (4.14-5.76); WHITE BLOOD CELL COUNT,WBC 7.0 K/uL (3.2-11.0)
[2024-10-04 06:09] LABS: BLOOD UREA NITROGEN,BUN 25.0 mg/dL (7-18); CARBON DIOXIDE,CO2 25.0 mmol/L (21-32); CHLORIDE,CL 107.0 mmol/L (100-108); CREATININE 1.1 mg/dL (0.8-1.3); EST CRCL DRUG DOSING (CG) 49.25 mL/min; ESTIMATED GFR 65.0 mL/min (>60); GLUCOSE RANDOM 209.0 mg/dL (74-106); POTASSIUM,K 3.7 mmol/L (3.6-5.2); SODIUM,NA 142.0 mmol/L (140-148)
[2024-10-04] MEDS: Insulin Lispro 100 Unit/ML 3 ML KwikPen SUBCUT SCH (08:16)
[2024-10-05 05:42] LABS: PLATELET COUNT,PLT 155.0 K/uL (130-375); RED BLOOD CELL COUNT 3.92 M/uL (4.14-5.76); WHITE BLOOD CELL COUNT,WBC 9.0 K/uL (3.2-11.0)
[2024-10-05 05:59] LABS: BLOOD UREA NITROGEN,BUN 24.0 mg/dL (7-18); CARBON DIOXIDE,CO2 24.0 mmol/L (21-32); CHLORIDE,CL 109.0 mmol/L (100-108); CREATININE 0.9 mg/dL (0.8-1.3); EST CRCL DRUG DOSING (CG) 60.2 mL/min; ESTIMATED GFR 83.0 mL/min (>60); GLUCOSE RANDOM 166.0 mg/dL (74-106); POTASSIUM,K 3.5 mmol/L (3.6-5.2); SODIUM,NA 142.0 mmol/L (140-148)
[2024-10-05] MEDS: Potassium Chloride 20 MEQ Tab.ER PO ONE (09:40)
[2024-10-05] MEDS: Insulin Glargine,Human Rec. Analog 100 Units/ML 3 ML Pen SUBCUT SCH (21:43)
[2024-10-06] MEDS: Potassium Chloride 20 MEQ Tab.ER PO ONE (09:43)
[2024-10-06] MEDS: Amoxicillin/Clavulanate K 875-125 MG Tab PO SCH (14:00)
[2024-10-07 08:50] VITALS: BP 117/86; PULSE 73
== END 2024-10-07 12:20 | disposition swing bed (61) | DRG 871 ==
LOC: JP.ED 20:05 → JP.MS 10-04 01:11
PROVIDERS: ADMIT Registered Nurse; ATTEND Hospitalist
DX: A41.9 Sepsis, unspecified organism (principal); J69.0 Pneumonitis due to inhalation of food and vomit; J96.01 Acute respiratory failure with hypoxia; J44.0 Chronic obstructive pulmonary disease with (acute) lower respiratory infection; H91.90 Unspecified hearing loss, unspecified ear; J44.89 Other specified chronic obstructive pulmonary disease; Z88.5 Allergy status to narcotic agent; H54.7 Unspecified visual loss; I11.0 Hypertensive heart disease with heart failure; I50.9 Heart failure, unspecified; E78.00 Pure hypercholesterolemia, unspecified; K21.9 Gastro-esophageal reflux disease without esophagitis; G30.9 Alzheimer's disease, unspecified; F02.80 Dementia in other diseases classified elsewhere, unspecified severity, without behavioral disturbance, psychotic disturbance, mood disturbance, and anxiety; N40.0 Benign prostatic hyperplasia without lower urinary tract symptoms; M19.90 Unspecified osteoarthritis, unspecified site; E86.0 Dehydration; E11.9 Type 2 diabetes mellitus without complications; E66.9 Obesity, unspecified; Z68.24 Body mass index [BMI] 24.0-24.9, adult; Z85.51 Personal history of malignant neoplasm of bladder; Z86.16 Personal history of COVID-19; Z79.899 Other long term (current) drug therapy; Z90.49 Acquired absence of other specified parts of digestive tract; Z79.84 Long term (current) use of oral hypoglycemic drugs; Z79.4 Long term (current) use of insulin; Z98.890 Other specified postprocedural states; Z79.82 Long term (current) use of aspirin; Z88.8 Allergy status to other drugs, medicaments and biological substances; Z90.79 Acquired absence of other genital organ(s); Z96.659 Presence of unspecified artificial knee joint
CPT/HCPCS: 36415; 71045; 71045-26; 80048; 81001; 82947; 83605; 84132; 85025; 85027; 86140; 87040; 94640; 96361; 96365; 96375; 97110-GP; 97116-GP; 97162-GP; 97530-GP; 99223; 99232; 99233; 99238; 99284; 99285-25; A9270-GY; C1758; J0295; J1650; J1815-GY; J2405; J2470; J7030

== ENCOUNTER 2024-10-07 12:22 | Inpatient (IN) | payer MEDICARE, BC ==
[2024-10-07] MEDS ORDERED: Ondansetron 4 MG Tab.DIS PO PRN (12:47)
[2024-10-07] MEDS: Insulin Glargine,Human Rec. Analog 100 Units/ML 3 ML Pen SUBCUT SCH (17:12)
[2024-10-07] MEDS: Amoxicillin/Clavulanate K 875-125 MG Tab PO SCH (20:52)
[2024-10-11] MEDS: Insulin Glargine,Human Rec. Analog 100 Units/ML 3 ML Pen SUBCUT SCH (16:58)
[2024-10-11] MEDS: Sennosides/Docusate Sodium 50-8.6 MG Tab PO PRN (17:10)
[2024-10-12 09:06] VITALS: BP 100/59; PULSE 65
== END 2024-10-12 14:07 | disposition home health service (06) | DRG 948 ==
LOC: JP.MS 12:22
PROVIDERS: ADMIT Hospitalist; ATTEND Internal Medicine
DX: R53.1 Weakness (principal); Z66 Do not resuscitate; H91.90 Unspecified hearing loss, unspecified ear; H54.7 Unspecified visual loss; I11.0 Hypertensive heart disease with heart failure; I50.9 Heart failure, unspecified; E78.00 Pure hypercholesterolemia, unspecified; J44.9 Chronic obstructive pulmonary disease, unspecified; K21.9 Gastro-esophageal reflux disease without esophagitis; N40.0 Benign prostatic hyperplasia without lower urinary tract symptoms; M19.90 Unspecified osteoarthritis, unspecified site; G30.9 Alzheimer's disease, unspecified; F02.80 Dementia in other diseases classified elsewhere, unspecified severity, without behavioral disturbance, psychotic disturbance, mood disturbance, and anxiety; E11.9 Type 2 diabetes mellitus without complications; E66.9 Obesity, unspecified; Z85.51 Personal history of malignant neoplasm of bladder; Z79.899 Other long term (current) drug therapy; Z79.84 Long term (current) use of oral hypoglycemic drugs; Z79.4 Long term (current) use of insulin; Z88.8 Allergy status to other drugs, medicaments and biological substances; Z86.16 Personal history of COVID-19; Z90.49 Acquired absence of other specified parts of digestive tract; Z98.890 Other specified postprocedural states; Z96.619 Presence of unspecified artificial shoulder joint
CPT/HCPCS: 82947; 97110-GP; 97116-GP; 97161-GP; 97165-GO; 97530-GP; 99305; 99315; A9270-GY

== ENCOUNTER 2024-12-02 15:37 | Emergency (ER) | payer MEDICARE, BC ==
[2024-12-02 16:27] LABS: PLATELET COUNT,PLT 215 K/uL (130-375); RED BLOOD CELL COUNT 5.63 M/uL (4.14-5.76); WHITE BLOOD CELL COUNT,WBC 9.1 K/uL (3.2-11.0)
[2024-12-02 16:47] LABS: A/G RATIO 1.0 (1.2-2.2); ALANINE AMINOTRANSFERASE,ALT 17 U/L (12-78); ASPARTATE AMNIOTRANSFERASE,AST 15 U/L (15-37); BILIRUBIN TOTAL 0.8 mg/dL (0.2-1.0); BLOOD UREA NITROGEN,BUN 21 mg/dL (7-18); CARBON DIOXIDE,CO2 26 mmol/L (21-32); CHLORIDE,CL 102 mmol/L (100-108); CREATININE 1.3 mg/dL (0.8-1.3); ESTIMATED GFR 53 mL/min (>60); GLUCOSE RANDOM 189 mg/dL (74-106); POTASSIUM,K 4.7 mmol/L (3.6-5.2); PROTEIN TOTAL,TP 8.2 g/dL (6.4-8.2); SODIUM,NA 139 mmol/L (140-148)
[2024-12-02 16:51] LABS: BAND ABSOLUTE MAN 0.36 K/uL; BAND PERCENT MAN 4 % (5-11); EOSINOPHILS ABSOLUTE MAN 0.09 K/uL (0.00-0.40); EOSINOPHILS PERCENT MAN 1 % (2-4); LYMPHOCYTES ABSOLUTE MAN 1.37 K/uL (0.8-3.3); LYMPHOCYTES PERCENT MAN 15 % (24-44); MONOCYTES ABSOLUTE MAN 0.64 K/uL (0.20-0.90); MONOCYTES PERCENT MAN 7 % (2-6); NEUTROPHILS ABSOLUTE MAN 6.64 K/uL (1.0-7.6); SEG NEUTROPHILS PERCENT MAN 73 % (36-66)
[2024-12-02] MEDS: Ondansetron 4 MG/2 ML SDV IVPUSH ONE (20:00)
[2024-12-02] MEDS: Sodium Chloride 0.9% 10 ML Syringe FLUSH PRN (22:10)
[2024-12-02 23:20] VITALS: BP 135/80; PULSE 89
[2024-12-02 23:45] LABS: APPEARANCE,URINE CLEAR (CLEAR); GLUCOSE,URINE NEGATIVE (NEGATIVE); OCCULT BLOOD,URINE NEGATIVE (NEGATIVE)
== END 2024-12-03 01:07 | disposition home or self-care (01) ==
LOC: JP.ED 15:37
DX: R19.7 Diarrhea, unspecified (principal); E86.0 Dehydration; I11.0 Hypertensive heart disease with heart failure; I50.9 Heart failure, unspecified; E78.00 Pure hypercholesterolemia, unspecified; E66.9 Obesity, unspecified; E11.9 Type 2 diabetes mellitus without complications; E03.9 Hypothyroidism, unspecified; Z88.8 Allergy status to other drugs, medicaments and biological substances; Z79.82 Long term (current) use of aspirin; Z79.4 Long term (current) use of insulin; Z79.899 Other long term (current) drug therapy; Z86.16 Personal history of COVID-19
CPT/HCPCS: 36415; 71045; 71045-26; 80053; 81003; 83605; 85025; 96360; 96361; 99283; 99285-25; J7030